=== PATIENT | female | born 1965 | race Caucasian/White ===

== ENCOUNTER 2024-04-21 09:16 | Inpatient (IN) | payer OTHER, MEDICARE, SELFPAY ==
[2024-04-21] VITALS (9 sets, daily range): BP systolic 129–198; BP diastolic 84–113; BMI 21.6; BMI 21.5
--- NOTE | 2024-04-21 04:56 | ED.GENMED ---
History of Present Illness
General
Chief Complaint: Abdominal Symptoms
Time Seen by Provider: 04/21/24 04:54
History of Present Illness
History of Present Illness:
HPI: The patient comes in because of abdominal pain and vomiting. states that he noted coffee-ground type emesis but patient did not think that she was vomiting blood. She came in by ambulance from home. She says this feels like the time
that she has had pancreatitis. She was admitted here with a questionable small bowel obstruction 8 months ago but does not feel that this is related to a bowel obstruction.
EXAM:
GENERAL: The patient appears very uncomfortable and is actively retching upon arrival
HEENT: Moist oral mucosa
CARDIOVASCULAR: No murmurs, tachycardic heart rate, regular rhythm, No chest wall tenderness
PULMONARY: Minimal respiratory distress, breath sounds are clear and equal
ABDOMEN: Soft with no peritoneal signs, moderate diffuse abdominal tenderness
NEUROLOGIC: Fair strength all extremities, no coordination deficits
PSYCHIATRIC: Appropriate mental status, normal insight and judgement
EXTREMITIES: Nontender, no edema, moves all extremities equally
SKIN: Appears somewhat pale
TIME OF INITIAL ENCOUNTER: 5 AM
NUMBER AND COMPLEXITY OF PROBLEMS ADDRESSED AT THE ENCOUNTER
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
� Acute Exacerbation and/or Progression of Chronic Illness: This is an acute problem but is had similar episode in the past
� Differential Diagnosis includes: Pancreatitis, bowel obstruction, viral syndrome, dehydration, NOLVIA
AMOUNT AND/OR COMPLEXITY OF DATA TO BE REVIEWED AND ANALYZED
� I performed an independent evaluation of and my interpretation is:
EKG: Sinus 121, nonspecific ST abnormality
CT: Personally viewed CT imaging, no evidence for bowel obstruction
X-rays:
Laboratory Studies: White count 14.6, hemoglobin 16.1
Other:
� Review of other/old records: Hemoglobin in September 2023 was 9.8. In September 2023 she came in with abdominal pain associated with nausea and vomiting concerning for pancreatitis and had coffee-ground emesis. She has a history
of a pancreatic transplant and renal transplant
� Clinical information was obtained by an independent historian: I spoke to EMS; I also spoke to the at bedside.
� Prescriptions/Medications Considered but not given:
� Further testing considered but not performed:
RISK OF COMPLICATIONS AND/OR MORBIDITY OR MORTALITY OF PATIENT MANAGEMENT
� Social determinants of health affecting care: Lives at home
� Discussion with other providers: Hospitalist for admission at 7 AM
� Escalation of care including admission/observation vs risk of discharge considered: Considered CT with oral contrast however the patient cannot currently tolerate anything orally. Will hold off on IV contrast for CAT scan as
well as she has a history of renal transplant. The patient was given IV fluids. Given the report of coffee-ground emesis, she was also given IV Protonix. Her white count is elevated at 14.6 but hemoglobin is normal. H
Past History
Past History
ED Past Medical History: GERD, HTN, Hypothyroidism and Other (UTI, CIDP)
ED Past Surgical History: Cholecystectomy, Gynecological (partial hysterectomy), Orthopedic (Right great toe amputation) and Other (L ankle reconstruction, Kidney and pancreas transplant, Fistula left arm)
Social History
Tobacco: Former smoker
Alcohol: None
Personal:
Living: with family
Phy Exam
Physical Exam
Physical Exam:
See HPI
Course
Orders/Labs/Results
Orders:
Orders
04/21/24 04:54
Pantoprazole [Protonix IV] 80 mg IV NOW STA
04/21/24 04:55
0.9% Sodium Chloride 500 ml [Nss] 500 ml IV BOLUS
Ondansetron Injectable [Zofran] 4 mg IV NOW STA
04/21/24 05:06
EKG [Electrocardiogram (*1)] Urgent
Reason for Study: Abdominal Pain
EKG- Treatment ONCE
HYDROmorphone [Dilaudid] 0.5 mg IV NOW STA
04/21/24 05:08
CT Abd/pel Without Iv Or Oral Urgent
Comment:
Reason For Exam: pain/vom; panc / renal tx; cannot milly po
STOOL [C difficile Antigen & Toxins] Urgent
DE Source: Feces/Stool
Specimen Description:
Date Specimen was Collected: 04/21/24
Time Specimen was Collected: 05:06
Stool Culture Urgent
DE Source: Feces/Stool
Specimen Description:
Date Specimen was Collected: 04/21/24
Time Specimen was Collected: 05:06
04/21/24 05:14
Type+Screen Urgent
Complete Blood Count/With Diff Urgent
Comprehensive Metabolic Panel Urgent
Lipase Urgent
04/21/24 05:15
COVID-19 Antigen Urgent
Source: Nasal Swab
04/21/24 05:22
Pantoprazole [Protonix IV] 40 mg .ROUTE .STK-MED ONE
Abnormal Lab Results
04/21/24
05:14
WBC 14.6 H 10^3/uL
(4.8-10.8)
Hgb 16.1 H g/dL
(12.0-16.0)
Hct 48.4 H %
(37.0-47.0)
Abs Immat Gran (auto) 0.1 H 10^3/uL
(0-0.05)
Absolute Neuts (auto) 12.4 H 10^3/uL
(1.4-6.5)
Absolute Lymphs (auto) 0.9 L 10^3/uL
(1.2-3.4)
Absolute Monos (auto) 1.1 H 10^3/uL
(0.1-0.6)
Neutrophils % 85.2 H %
(42.2-75.2)
Lymphocytes % 6.3 L %
(20.5-51.1)
Creatinine 1.2 H mg/dL
(0.6-1.0)
Glucose 165 H mg/dl
(70-99)
Calcium 10.4 H mg/dl
(8.4-10.2)
Total Bilirubin 1.5 H mg/dl
(0.2-1.3)
AST 137 H U/L
(14-36)
ALT 54 H U/L
(0-35)
Alkaline Phosphatase 148 H U/L
(38-126)
04/21/24 05:14
04/21/24 05:14
Vital Signs
Initial and Last Documented VS:
Initial Vital Signs
Pulse Ox
97
04/21/24 04:56
Last Documented Vital Signs
Temp Pulse Resp BP Pulse Ox
98.5 F 106 24 169/103 98
04/21/24 05:03 04/21/24 06:45 04/21/24 06:45 04/21/24 06:44 04/21/24 06:45
*Critical Care Note
Total Time (30-74mins, 75-104mins- exclusive of procedures): Not Applicable
ED Attending Note
-
Portions of this chart may have been created with voice recognition software.� Occasional wrong word or��sound alike� substitutions may have occurred due to the inherent limitations of voice recognition software.
Discharge Plan
Departure
Prescriptions:
No Action
prednisone 5 mg tablet
5 mg PO DAILY
diphenoxylate-atropine [Lomotil] 2.5-0.025 mg Tablet
1 tab PO QID PRN (Reason: diarrhea)
Patient Comments:
09/12/2023: last filled 07/10/22, 120 tabs [facility] days from [facility]
mycophenolate mofetil [CellCept] 500 mg tablet
500 mg PO Q12H
alprazolam 0.5 mg tablet
1 mg PO HS
Patient Comments:
09/12/2023: last filled 08/27/23, 60 tabs for 30 days from [id number]
levothyroxine 50 mcg tablet
50 mcg PO DAILY
pantoprazole 40 mg tablet,delayed release (DR/EC)
40 mg PO DAILY
hkfmmsahymqx-uowwlwch-xiinak Tablet
1 tab PO DAILY
biotin 1 mg Capsule
1 mg PO DAILY
tacrolimus 0.5 mg capsule
0.5 mg PO Q12H 30 Days Qty: 60 0RF
hydralazine 25 mg Tablet
25 mg PO TID Qty: 90 0RF
magnesium oxide 500 mg Tablet
500 mg PO BID Qty: 60 0RF
metoprolol succinate 25 mg Tablet Extended Release 24 Hr
25 mg PO BID 30 Days Qty: 60 0RF
oxycodone 5 mg Tablet
5 mg PO Q4HPRN PRN (Reason: mod pain) Qty: 20 0RF
Patient Comments:
09/12/2023: last filled 09/11/23, 20 tabs for 4 days
apixaban 5 mg tablet
See Rx Instructions .ROUTE .COMPLEX Qty: 75 0RF
Rx Instructions:
2 tablets twice a day for 7 days, then 1 tablet twice a day
ciprofloxacin HCl 500 mg Tablet
500 mg PO BID 7 Days Qty: 14 0RF
Referrals:
Maine Villa NP [Family Provider] -
Interventions
Interventions:
*Risk Screen - Suicide Last Done: 04/21/24 04:56
*General Assessment Last Done: 04/21/24 04:56
*Neglect/Abuse Screening Last Done: 04/21/24 04:56
*ED COVID-19 Vaccine History Last Done: 04/21/24 04:56
VL-Jdqipw-Ealovcwuqh Assessment Last Done: 04/21/24 06:32
Discharge Date and Time
Print Language: MALDIVIAN
[2024-04-21] MEDS: NSS 500 IV (05:19)
[2024-04-21] MEDS: PROTONIX IV 80 MG IV (05:19)
[2024-04-21] MEDS: DILAUDID 0.5 MG IV ×4 (05:20→20:11)
[2024-04-21] MEDS: ZOFRAN 4 MG IV ×3 (05:20→17:38)
[2024-04-21 05:35] LABS: % Basophils 0.3 % (0-2); % Eosinophils 0.3 % (0-6); % Immature Granulocytes 0.4 % (0-0.5); % Lymphocytes 6.3 % (20.5-51.1); % Monocytes 7.5 % (1.7-9.3); % Neutrophils 85.2 % (42.2-75.2); Absolute Eosinophils 0.1 10^3/uL (0-0.7); Absolute Immature Granulocytes 0.1 10^3/uL (0-0.05); Absolute Lymphocytes 0.9 10^3/uL (1.2-3.4); Absolute Monocytes 1.1 10^3/uL (0.1-0.6); Absolute Neutrophils 12.4 10^3/uL (1.4-6.5); Hematocrit 48.4 % (37.0-47.0); Hemoglobin 16.1 g/dL (12.0-16.0); Mean Corp Hgb Conc. 33.3 g/dL (33.0-37.0); Mean Corpuscular Hgb 29.9 pg (27.0-31.0); Mean Platelet Volume 10.4 fL (7.4-10.4); Nucleated Red Blood Cells % 0 %; Platelet Count 163 10^3/uL (130-400); Red Blood Cell Count 5.38 10^6/uL (4.20-5.40); Red Cell Dist. Width 13.4 % (11.5-14.5); White Blood Cell Count 14.6 10^3/uL (4.8-10.8)
[2024-04-21 05:48] LABS: COVID-19 Antigen Negative (Negative)
[2024-04-21 05:58] LABS: ALT (SGPT) 54 U/L (0-35); AST (SGOT) 137 U/L (14-36); Albumin 4.9 g/dl (3.5-5.0); Alkaline Phosphatase 148 U/L (38-126); Blood Urea Nitrogen 16 mg/dl (7-17); Calcium 10.4 mg/dl (8.4-10.2); Carbon Dioxide 25 mmol/L (22-30); Chloride 105 mmol/L (98-107); Estimated Creatinine Clearance 39 ml/min; Glucose 165 mg/dl (70-99); Lipase 51 U/L (23-300); Potassium 3.5 mmol/L (3.5-5.1); Sodium 142 mmol/L (135-145); Total Bilirubin 1.5 mg/dl (0.2-1.3); eGFR 51.82
--- NOTE | 2024-04-21 09:03 | HPS.HSE ---
Family Physician
-
Family Physician: Maine Villa
Chief Complaint
-
abdomen pain
History of Present Illness
58-year-old female past medical history of renal and pancreatic transplant who is presenting from home with abdominal pain nausea and vomiting. History obtained from patient's spouse at bedside. Patient had 1 can of alcoholic drink on Saturday.
Overnight patient developed severe abdominal pain associate with nausea and vomiting. Spouse state of coffee-ground emesis. Of note patient also with CIDP and smokes medical marijuana. Also intermittently takes edibles of marijuana for severe
pain. Patient does not follow-up with any pancreatic specialist. Follows up with assisted living director in [place] for her immunosuppressive medications. Patient with multiple hospitalizations with similar symptomatology. No melanotic stools. States of
headache. No chest pain or shortness of breath. Significant abdominal pain leading to come to the ER.
Medical History
Past Medical History
Past Medical History: Reports Other (chronic inflammatory demyelinating polyneuropathy, GERD, diabetes, history of pancreatitis, diabetic nephropathy, pancreatic/renal transplant 20 years ago, cholecystitis with cholecystectomy, history of ERCP,)
Past Surgical History: Reports Other
Additional Past Surgical History:
Renal and pancreatic transplant
Cholecystectomy
Social History
Tobacco: Vaping (Marijuana)
Alcohol: None
Drug: Marijuana (Vaping and edibles)
Personal:
Living: With Family
Family History
Family History: Not pertinent
Allergies / Home Medications
Allergies reflects when Allergies were last updated in [facility].
Home Medications with original date entered in [facility]
Allergy/Medication List:
Allergies
Allergy/AdvReac Type Severity Reaction Status Date / Time
promethazine [From Phenergan] Allergy Intermediate Itching Verified 04/21/24 04:56
promethazine HCl Allergy Unknown Unknown Verified 04/21/24 04:56
[From Phenergan]
adhesive Allergy Rash Verified 04/21/24 04:56
Cephalosporins Allergy DIARRHEA Verified 04/21/24 04:56
Home Medications
alprazolam 0.5 mg tablet 1 mg PO HS Mental Health/Anxiety 09/03/23
biotin 1 mg capsule 1 mg PO DAILY Supplement 09/03/23
diphenoxylate-atropine 2.5 mg-0.025 mg tablet (Lomotil) 1 tab PO QIDPRN PRN diarrhea 09/03/23
levothyroxine 50 mcg tablet 50 mcg PO DAILY Thyroid 09/03/23
mycophenolate mofetil 500 mg tablet (CellCept) 500 mg PO Q12 Transplant 09/03/23
pantoprazole 40 mg tablet,delayed release 40 mg PO DAILY Gastrointestinal Issue 09/03/23
prednisone 5 mg tablet 5 mg PO DAILY Anti-Inflammatory 09/03/23
Medical Marijuana 2 puff inhalation DAILYPRN PRN mild pain 04/21/24
cholecalciferol (vitamin D3) 125 mcg (5,000 unit) tablet (Vitamin D3) 125 mcg PO DAILY Supplement 04/21/24
gabapentin 600 mg tablet 600 mg PO TID Pain 04/21/24
ondansetron 4 mg disintegrating tablet 4 mg PO Q6HPRN PRN nausea 04/21/24
tacrolimus 0.5 mg capsule, immediate-release 0.5 mg PO Q12 Transplant 04/21/24
therapeutic multivitamin 1 tab PO DAILY Supplement 04/21/24
tizanidine 4 mg tablet 4 mg PO TIDPRN PRN spasms 04/21/24
Review of Systems
-
History Source: Patient and Family
A 12 point ROS was completed and negative except as noted: Yes
Physical Exam
Vital Signs
Vital Signs
Temp Pulse Resp BP Pulse Ox
98.5 F 101 21 129/90 97
04/21/24 05:03 04/21/24 08:00 04/21/24 08:00 04/21/24 08:00 04/21/24 07:45
Physical Exam
General: Well Developed, Well Nourished and No Apparent Distress
HEENT: NormoCephalic, Moist mucous membranes and Atraumatic
Respiratory: Clear
Cardiac: S1/S2 and Regular Rhythm; No Murmur or Rub
GI: Soft, Non Distended, Normal Bowel Sounds and Tender; No Organomegaly
Rectal: Deferred by Provider
Musculoskeletal: No Clubbing, No Cyanosis and No Edema
Skin: No Rash
Neuro: Awake and Nonfocal/grossly intact
Psych: Calm
Laboratory Results
-
04/21/24 05:14
04/21/24 05:14
Laboratory Results
Total Bilirubin 1.5 mg/dl (0.2-1.3) H 04/21/24 05:14
AST 137 U/L (14-36) H 04/21/24 05:14
ALT 54 U/L (0-35) H 04/21/24 05:14
Alkaline Phosphatase 148 U/L (38-126) H 04/21/24 05:14
Lipase 51 U/L (23-300) 04/21/24 05:14
Impression/Plan
-
#Abdominal pain likely secondary to pancreatitis in the setting of mild alcohol usage with history of pancreatic transplant vs. duodenitis
#History of pancreatitis in the past
#Nausea and vomiting secondary to above
#Leukocytosis likely reactive
Mild hypercalcemia likely secondary dehydration
N.p.o.
Aggressive IV fluid resuscitation LR 250 cc and then subsequently decrease 150 cc/h
Pain control
Antinausea meds
PPI
GI evaluation
#Mild acute duodenitis
#Pneumobilia-defer to GI.
N.p.o.
PPI
GI on following
#Transaminitis likely secondary to pancreatitis/medications versus dehydration
Trend CMP for now
#Primary hypertension
Not on any meds. Monitor for now
#Renal transplant
#Elevated Cr likely 2/2 dehydration
Continue prednisone, Prograf and mycophenolate
IVF. Trend Cr.
Hypothyroidism
Cont synthroid
Anxiety/depression
Continue with Xanax
History of chronic inflammatory demyelinating polyneuropathy
Continue with Tizanidine
History of type 2 diabetes
History of cholecystitis status postcholecystectomy
History of partial hysterectomy
Marijuana user-smokes/vapes daily and takes edible once a while
Hx of RUE DVT -off Eliquis
DVT ppx-lovenox
DNR/DNI confirmed with spouse per pt.
I spent a total of 79 minutes with the patient or on the floor. More than 50% of this time involved counseling and coordination of care.
[2024-04-21] MEDS: LR 1000 IV ×3 (09:08→15:59)
--- NOTE | 2024-04-21 10:03 | CON.GI ---
Addendum entered and electronically signed by Ledy Myles MD 04/21/24 13:22:
I saw and examined the patient.
The DATABASE DBA's note was reviewed and I agree with the note.
Comment: This is a 58-year-old female with multiple medical problems as listed below including pancreatic and renal transplant 20 years ago, status post cholecystectomy and prior history of recurrent pancreatitis and was admitted in 2022 with
symptoms of pancreatitis which resolved with bowel rest and IV hydration now presents with recurrent epigastric abdominal pain with nausea vomiting and coffee-ground emesis. CT on admission suggests possible duodenitis or duodenal ulcer but also
noted new pneumobilia likely from prior ERCP, also on CT quechan pancreas is atrophic. Right lower quadrant transplant pancreas appears unchanged and also has abnormal LFTs with leukocytosis her lipase is normal. No recent change in transplant
medication she is on tacrolimus, CellCept and prednisone.
Assessment and plan epigastric abdominal pain with nausea vomiting and small amount of coffee-ground emesis, hemoglobin remained stable at 16.1 but she is hemoconcentrated continue IV fluids, n.p.o. and Protonix twice daily. Doubt that this is
recurrent pancreatitis of transplanted pancreas in RLQ and symptoms may be related to possible viral enteritis or duodenitis or peptic ulcer disease. If symptoms do not improve will schedule her for an endoscopy. If symptoms do not improve will
also get an MRI abdomen. I also encouraged patient to follow-up at a tertiary biliary/pancreatic center her transplant medications are being managed by her transplant certified real estate appraiser at [facility] and she sees Dr. Leslie who also I told them to
follow-up with after discharge from the hospital. They do not want to go back to pancreatic center at [place] or [place].
Original Note:
Consultation
-
Date/Time Consultation Requested: 04/21/24 0900
Date/Time Consultation Performed: 04/21/24 1000
Requesting Provider: Rober Palmer MD
Performing Provider: CUONG Alejandre, Ledy Myles MD
Reason for Consultation: pancreatitis, Coffee ground emesis
Medical History
Chief Complaint / HPI
Chief Complaint: Abdominal pain
History of Present Illness:
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
ago at [facility], prior barron for cholecystitis , history of ERCP with admission in 2022 with pancreatitis with noted RLQ stranding and vomiting with concern for graft pancreatitis. She improved with slow progression of diet and IVF. She now returns
today with recurrent abdominal pain with vomiting and coffee ground emesis. On admission cT completed with limitation without contrast new pneumobilia not seen on prior imaging. Also noted non specific edema upper abdomen in periduodenal regions
with acute duodenitis vs underlying ulcer. Labs notable for WBC 14,600, hbg 16, bili 1.5, AST 137, alt 54, alk phos 148 and lipase of 51. Pt is on chronic tacrolimus, mycophenolate. Her last endoscopy and colonoscopy were performed within
the past 1 to 2 years at [facility].
In reviewing with patient she has transplant year ago at [facility] but not back in years. Her immunosuppression is followed by renal at [facility]. she now reports this her 4th episode in 2 years of concern for recurrent pancreatitis. She complaints
of right sided 10/10 pain along with coffee ground emesis. Symptoms started yesterday without improvement prompting ER evaluation. She has chronic GERD on PPI but denies dysphagia, diarrhea, constipation or rectal bleeding.
Past Medical History
Past Medical History: GERD, IDDM and Other (chronic inflammatory demyelinating polyneuropathy, pancreatitis 08/2023, DVT, diabetic neuropathy, cholecystitis, COVID (15 days ago), complicated UTI, ETOH pancreatitis in past)
Past Surgical History: Cholecystectomy and Other (pancreatic/renal transplant (20 yrs ago), ERCP)
Social History
Tobacco: Former Smoker
Alcohol: Other (rare occasion, former ETOH )
Drug: Marijuana (medical marijuana card)
Personal:
Living: With Family
Employment: Retired
Family History
Family History: Other (No fam hx of GI malignancy or IBD)
Allergies / Home Medications
Allergy/AdvReac Type Severity Reaction Status Date / Time
promethazine [From Phenergan] Allergy Intermediate Itching Verified 04/21/24 04:56
promethazine HCl Allergy Unknown Unknown Verified 04/21/24 04:56
[From Phenergan]
adhesive Allergy Rash Verified 04/21/24 04:56
Cephalosporins Allergy DIARRHEA Verified 04/21/24 04:56
�Medication �Instructions �Recorded
alprazolam 0.5 mg tablet 1 mg PO HS Mental Health/Anxiety 09/03/23
biotin 1 mg capsule 1 mg PO DAILY Supplement 09/03/23
diphenoxylate-atropine 2.5 1 tab PO QIDPRN PRN diarrhea 09/03/23
mg-0.025 mg tablet (Lomotil)
levothyroxine 50 mcg tablet 50 mcg PO DAILY Thyroid 09/03/23
mycophenolate mofetil 500 mg 500 mg PO Q12H Transplant 09/03/23
tablet (CellCept)
pantoprazole 40 mg tablet,delayed 40 mg PO DAILY Gastrointestinal 09/03/23
release Issue
prednisone 5 mg tablet 5 mg PO DAILY Anti-Inflammatory 09/03/23
tacrolimus 0.5 mg capsule, 0.5 mg PO Q12H 30 days #60 caps 09/11/23
immediate-release
Medical Marijuana 2 puff inhalation DAILYPRN PRN 04/21/24
mild pains
cholecalciferol (vitamin D3) 125 125 mcg PO DAILY 04/21/24
mcg (5,000 unit) tablet (Vitamin
D3)
gabapentin 600 mg tablet 600 mg PO TID 04/21/24
ondansetron 4 mg disintegrating 4 mg PO Q6HPRN PRN nausea 04/21/24
tablet
therapeutic multivitamin 1 tab PO DAILY 04/21/24
tizanidine 4 mg tablet 4 mg PO TIDPRN PRN spasms 04/21/24
Review of Systems
-
History Source: Patient
Constitutional: Reports No Symptoms
EENT: Reports No Symptoms
Respiratory: Reports No Symptoms
Abdomen/GI: Reports Abdominal Pain, Nausea and Vomiting (coffee ground emesis )
: Reports Other (hx UTI's)
Musculoskeletal: Reports No Symptoms
Skin: Reports No Symptoms
Neurological: Reports Weakness
Endocrine: Reports No Symptoms
Hematologic/Lymphatic: Reports No Symptoms
Vital Signs
Temp Pulse Resp BP Pulse Ox
98.5 F 100 11 184/94 99
04/21/24 05:03 04/21/24 09:45 04/21/24 09:45 04/21/24 09:09 04/21/24 09:45
Physical Exam
Exam
General: Well Developed, Well Nourished and Other (distress with pain and vomiting )
HEENT: Normocephalic and Anicteric
Respiratory: Clear
Cardiac: Other (tachy )
GI: Soft and Tender (worse right sided )
Musculoskeletal: No Clubbing and No Cyanosis
Skin: Warm and Dry
Neuro: Awake, Alert and AO x 3
Psych: Calm
Results
WBC 14.6 10^3/uL (4.8-10.8) H 04/21/24 05:14
Hgb 16.1 g/dL (12.0-16.0) H 04/21/24 05:14
Hct 48.4 % (37.0-47.0) H 04/21/24 05:14
MCV 90.0 fL (81.0-99.0) 04/21/24 05:14
Plt Count 163 10^3/uL (130-400) 04/21/24 05:14
Absolute Neuts (auto) 12.4 10^3/uL (1.4-6.5) H 04/21/24 05:14
Sodium 142 mmol/L (135-145) 04/21/24 05:14
Potassium 3.5 mmol/L (3.5-5.1) 04/21/24 05:14
Chloride 105 mmol/L (98-107) 04/21/24 05:14
Carbon Dioxide 25 mmol/L (22-30) 04/21/24 05:14
BUN 16 mg/dl (7-17) 04/21/24 05:14
Creatinine 1.2 mg/dL (0.6-1.0) H 04/21/24 05:14
Calcium 10.4 mg/dl (8.4-10.2) H 04/21/24 05:14
Total Bilirubin 1.5 mg/dl (0.2-1.3) H 04/21/24 05:14
AST 137 U/L (14-36) H 04/21/24 05:14
ALT 54 U/L (0-35) H 04/21/24 05:14
Alkaline Phosphatase 148 U/L (38-126) H 04/21/24 05:14
Lipase 51 U/L (23-300) 04/21/24 05:14
Diagnostic Image Results:
CT Abd/pel Without Iv Or Oral
Limited examination without intravenous and oral contrast. There is new pneumobilia which may represent sphincter malfunction or be secondary to previous sphincterotomy, although the latter is not favored as no previous CT demonstrated pneumobilia.
Nonspecific edema in the upper abdomen which appears to be centered in the periduodenal region and favored to represent acute duodenitis. Underlying duodenal ulcer cannot be excluded.
Chronic/incidental findings as detailed in the body of the report.
Prior GI Procedures:
EGD: 1-2 years ago Saida lopez
Colonoscopy: 1-2 years ago Tyleratoreli abijames
Assessment / Plan
-
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
ago at [facility], prior barron for cholecystitis , history of ERCP with admission in 2023 with pancreatitis with noted RLQ stranding and vomiting with concern for graft pancreatitis. She improved with slow progression of diet and IVF. She now returns
today with recurrent abdominal pain with vomiting and coffee ground emesis. On admission cT completed with limitation without contrast new pneumobilia not seen on prior imaging. Also noted non specific edema upper abdomen in periduodenal regions
with acute duodenitis vs underlying ulcer. Labs notable for WBC 14,600, hbg 16, bili 1.5, AST 137, alt 54, alk phos 148 and lipase of 51. Pt is on chronic tacrolimus, mycophenolate. Her last endoscopy and colonoscopy were performed within
the past 1 to 2 years at [facility].
04/21/24
Limited examination without intravenous and oral contrast. There is new pneumobilia which may represent sphincter malfunction or be secondary to previous sphincterotomy, although the latter is not favored as no previous CT demonstrated pneumobilia.
Nonspecific edema in the upper abdomen which appears to be centered in the periduodenal region and favored to represent acute duodenitis. Underlying duodenal ulcer cannot be excluded.
Chronic/incidental findings as detailed in the body of the report.
Impression:
- Abdominal pain with concern for underlying pancreatitis in setting of transplanted pancreas with recurrent episode 4th episode in 2 years
- N/V- with Coffee ground emesis
-CT with pneumobilia
-CT with acute duodenitis
- pancreatic/renal transplant 20 years ago
other med problems:
- hx covid
-CIPD
-GERD
-DM
- barron
-neuropathy
-hx DVT
Recommendations
Pt with likely recurrent pancreatitis 4th episode in 2 years with hx panc/renal transplant 20+ years ago
agree with aggressive IVF s/p bolus in Er and now LR at 250ml/hr
trend labs
NPO
pain control
antiemetic as needed
Protonix IV BID
will review imaging with Dr. Myles
Continue tacrolimus and cellcept as per medical team
will need follow up after discharge-- pt follows with Dr. Cintron at [facility] consider pancreatic specialist -- Dr. Darling or tertiary center to review with recurrent bouts of pancreatitis --
Total Time Spent with Patient (in minutes): 40
-
-
Thank you for consultation and allowing me to participate in the patient's care. Please call the [facility] integration developer GI physician during the after hours with any questions or concerns.
--- NOTE | 2024-04-21 10:22 | EDRN ---
Patient taken to [id number] on stretcher with LR infusing.
[2024-04-21] MEDS: NSS (PRESERVATIVE FREE) 10 ML IV ×2 (11:50→20:01)
[2024-04-21] MEDS: CELLCEPT 500 MG PO ×2 (11:51→21:36)
[2024-04-21] MEDS: PROTONIX IV 40 MG IV ×2 (11:51→20:01)
[2024-04-21] MEDS: PROGRAF 0.5 MG PO ×2 (11:51→21:35)
[2024-04-21 15:54] LABS: Urine Albumin 3+ (Neg - Trace); Urine Bilirubin Negative (Negative); Urine Character Clear (Clear); Urine Color Yellow; Urine Glucose Trace (Negative); Urine Ketone Negative (Negative); Urine Leukocyte 1+ (Negative); Urine Nitrite Negative (Negative); Urine Occult Blood Negative (Negative); Urine Urobilinogen Negative (Neg - 1+)
--- NOTE | 2024-04-21 16:28 | PTCARENOTE ---
patient bp with automatic bp machine 180/94..denies chest pain. Manual bp 164/[address] made aware. no new orders at this time.plan of care ongoing.
[2024-04-21 16:33] LABS: Urine Squamous Cell >30 /LPF (Few)
[2024-04-21 16:34] LABS: Urine Bacteria Many (Negative); Urine Red Blood Cell 0-2 /HPF (0-2)
[2024-04-21] MEDS: NEURONTIN PO (16:51)
[2024-04-21] MEDS: LOVENOX 40 MG SC (17:38)
[2024-04-21] MEDS: BENADRYL 6.25 MG IV (19:58)
[2024-04-21] MEDS: NEURONTIN 600 MG PO (21:38)
[2024-04-21] MEDS: XANAX 1 MG PO (21:40)
[2024-04-21] MEDS: APRESOLINE 5 MG IV (23:02)
[2024-04-22] VITALS (8 sets, daily range): BP systolic 142–182; BP diastolic 82–100
[2024-04-22] MEDS: DILAUDID 0.5 MG IV ×3 (01:01→12:26)
--- NOTE | 2024-04-22 05:03 | PTCARENOTE ---
1930 - Pt dry heaving and c/o nausea. At 1738 Zofran administered. Notified MISSILE INSPECTOR PREFLIGHT. One time dose of IV Benadryl 6.25mg ordered and administered. Pt reported feeling better after dose, but continued to dry heave.
At 2010, Pt received IV Dilaudid for pain; at 2148 Xanax administered for anxiety.
2300 Vitals, PCT informed this RN of automatic BP of 230/130. Manual BP 198/96, confirmed by 2 RNs. Notified MISSILE INSPECTOR PREFLIGHT- order entered for PRN IV Hydralazine 5mg Q6H for systolic >180. PRN dose administered. Attempt to recheck BP around 0045. Patient c/o
pain and elevated BP. IV Dilaudid administered. 0230 BP rechecked 156/84 manual.
[2024-04-22] MEDS: SYNTHROID 50 MCG PO (05:34)
[2024-04-22 07:36] LABS: % Basophils 0.2 % (0-2); % Eosinophils 0.2 % (0-6); % Immature Granulocytes 0.3 % (0-0.5); % Lymphocytes 18.8 % (20.5-51.1); % Monocytes 7.4 % (1.7-9.3); % Neutrophils 73.1 % (42.2-75.2); Absolute Lymphocytes 1.1 10^3/uL (1.2-3.4); Absolute Monocytes 0.4 10^3/uL (0.1-0.6); Absolute Neutrophils 4.3 10^3/uL (1.4-6.5); Hematocrit 39.9 % (37.0-47.0); Hemoglobin 12.9 g/dL (12.0-16.0); Mean Corp Hgb Conc. 32.3 g/dL (33.0-37.0); Mean Corpuscular Hgb 29.6 pg (27.0-31.0); Mean Corpuscular Volume 91.5 fL (81.0-99.0); Mean Platelet Volume 10.7 fL (7.4-10.4); Nucleated Red Blood Cells % 0 %; Platelet Count 97 10^3/uL (130-400); Red Blood Cell Count 4.36 10^6/uL (4.20-5.40); Red Cell Dist. Width 13.5 % (11.5-14.5); White Blood Cell Count 5.9 10^3/uL (4.8-10.8)
[2024-04-22 07:42] LABS: ALT (SGPT) 35 U/L (0-35); AST (SGOT) 55 U/L (14-36); Albumin 3.4 g/dl (3.5-5.0); Alkaline Phosphatase 113 U/L (38-126); Blood Urea Nitrogen 15 mg/dl (7-17); Calcium 9.3 mg/dl (8.4-10.2); Carbon Dioxide 25 mmol/L (22-30); Chloride 107 mmol/L (98-107); Estimated Creatinine Clearance 47 ml/min; Glucose 82 mg/dl (70-99); Sodium 139 mmol/L (135-145); Total Bilirubin 0.9 mg/dl (0.2-1.3); Total Protein 5.8 g/dl (6.3-8.2); eGFR > 60.00
[2024-04-22] MEDS: APRESOLINE 5 MG IV (07:44)
[2024-04-22] MEDS: PROTONIX IV 40 MG IV ×2 (07:48→20:29)
[2024-04-22] MEDS: NSS (PRESERVATIVE FREE) 10 ML IV ×2 (07:48→20:29)
[2024-04-22] MEDS: LR 1000 IV (08:42)
--- NOTE | 2024-04-22 09:05 | W.PN.GI.CBS2 ---
Addendum entered and electronically signed by Ledy Myles MD 04/22/24 10:14:
platelet dropped today- follow closely may need Hematology consult if persists/worsens
Addendum entered and electronically signed by Ledy Myles MD 04/22/24 09:26:
I saw and examined the patient.
The CONGRESSIONAL DISTRICT AIDE's note was reviewed and I agree with the note.
Comment: Epigastric abdominal pain with nausea vomiting and small amount of coffee-ground emesis, hb stable no more CG emesis. continue IV fluids was hemoconcentrated/dehydrated at admission,Cr stable, n.p.o. and Protonix twice daily. Doubt that
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 If symptoms do not improve will schedule her for an endoscopy. will also get an MRI
abdomen. I also encouraged patient to follow-up at a tertiary biliary/pancreatic center her transplant medications are being managed by her transplant monument stonecutter at [facility] and she sees Dr. Anuj BUCKNER at [facility] also to follow-up with after
discharge from the hospital. They do not want to go to pancreatic center at [place] or [place].
Original Note:
Today's Communication / Plan
-
Pt with duodenitis vs enteritis vs less likely recurrent pancreatitis as pain higher than noted with prior episodes pancreatitis with hx panc/renal transplant 20+ years ago
pt responded well to IVF with improved hbg and WBC
still with severe pain
will add MRI for further evaluation some limitation of CT without contrast
cont LR at 70ml/hr
trend labs including platelets with some drop
cont NPO with severe pain
pain control
antiemetic as needed
cont Protonix IV BID
NSAID avoidance -- pt denies use
Continue tacrolimus and CellCept as per medical team
will need follow up after discharge-- pt follows with Dr. Cintron at [facility] vs consider pancreatic specialist -- Dr. Darling or tertiary center with hx panc transplant and recurrent pain
Assessment / Plan
-
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 She improved with slow progression of diet and IVF. She now returns
today with recurrent abdominal pain with vomiting and coffee ground emesis. On admission cT completed with limitation without contrast new pneumobilia not seen on prior imaging. Also noted non specific edema upper abdomen in periduodenal regions
with acute duodenitis vs underlying ulcer. Labs notable for WBC 14,600- improved after discharge hbg 16, bili 1.5, AST 137, alt 54, alk phos 148 and lipase of 51. Pt is on chronic tacrolimus, mycophenolate. Her last endoscopy and
colonoscopy were performed within the past 1 to 2 years at [facility].
04/21/24CT Abd/pel Without Iv Or Oral
Limited examination without intravenous and oral contrast. There is new pneumobilia which may represent sphincter malfunction or be secondary to previous sphincterotomy, although the latter is not favored as no previous CT demonstrated pneumobilia.
Nonspecific edema in the upper abdomen which appears to be centered in the periduodenal region and favored to represent acute duodenitis. Underlying duodenal ulcer cannot be excluded.
Chronic/incidental findings as detailed in the body of the report.
Impression:
- Abdominal pain with concern for underlying pancreatitis in setting of transplanted pancreas with recurrent episode 4th episode in 2 years
- N/V- with Coffee ground emesis
-CT with pneumobilia
-CT with acute duodenitis
- pancreatic/renal transplant 20 years ago
-leukocytosis - improved
-thrombocytopenia
other med problems:
- hx covid
-CIPD
-GERD
-DM
- barron
-neuropathy
-hx DVT
Recommendations
Pt with duodenitis vs enteritis vs less likely recurrent pancreatitis as pain higher than noted with prior episodes pancreatitis with hx panc/renal transplant 20+ years ago
pt responded well to IVF with improved hbg and WBC
still with severe pain
will add MRI for further evaluation some limitation of CT without contrast
cont LR at 70ml/hr
trend labs including platelets with some drop
cont NPO with severe pain
pain control
antiemetic as needed
cont Protonix IV BID
NSAID avoidance -- pt denies use
Continue tacrolimus and CellCept as per medical team
will need follow up after discharge-- pt follows with Dr. Cintron at [facility] vs consider pancreatic specialist -- Dr. Darling or tertiary center with hx panc transplant and recurrent pain
Subjective
Subjective
Date of Service: April 22, 2024
still with increased RUQ 10/10 abdominal pain, NPO
Objective
Data Reviewed
Laboratory Data:
Laboratory Results
04/22/24 05:32
04/22/24 05:32
Laboratory Results
Total Bilirubin 0.9 mg/dl (0.2-1.3) 04/22/24 05:32
AST 55 U/L (14-36) H 04/22/24 05:32
ALT 35 U/L (0-35) 04/22/24 05:32
Alkaline Phosphatase 113 U/L (38-126) 04/22/24 05:32
Lipase 51 U/L (23-300) 04/21/24 05:14
Vital Signs and I&O:
Vital Signs
Temp Pulse Resp BP Pulse Ox
98.1 F 90 17 184/94 98
04/22/24 03:08 04/22/24 07:44 04/22/24 03:08 04/22/24 07:44 04/22/24 03:13
I&O
04/21/24 04/22/24 04/23/24
06:59 06:59 06:59
Intake Total 0 / 0
Balance 0 / 0
Physical Exam
Physical Exam
HEENT: Anicteric and Moist mucous membranes
Cardiology: Normal Sinus Rhythm
Pulmonary: Clear
GI: Soft, Non Distended and Tender (RUQ with some guarding )
[2024-04-22] MEDS: VITAMIN D3 (cholecalciferol) 125 MCG PO (09:32)
[2024-04-22] MEDS: THERAGRAN 1 TABLET PO (09:32)
[2024-04-22] MEDS: NEURONTIN 600 MG PO (09:32)
[2024-04-22] MEDS: DELTASONE 5 MG PO (09:32)
--- NOTE | 2024-04-22 10:03 | CM ---
Patient seen bedside, initial assessment completed. Patient resides with her in a first floor apartment, no steps. Patient has a walker and shower chair at home. Patient reports VN history through [facility], [facility].
Patient PCP [facility], [facility] in [place]. Patient confirms prescription coverage, denies food, housing/utility, transportation insecurities at home. CM will continue to follow for all discharge planning needs.
Plan; home no needs likely.
--- NOTE | 2024-04-22 10:26 | W.PN.HOSP.TC ---
Today's Communication/Plan
-
IVF
Monitor BP
Diet per GI
MRI abdomen
Assessment / Plan
Assessment / Plan
#Abdominal pain likely secondary to duodenitis vs. enteritis vs. low likelihood of pancreatitis in the setting of mild alcohol usage with history of pancreatic transplant
#History of pancreatitis in the past
#Nausea and vomiting secondary to above
#Leukocytosis likely reactive Resolved
#Mild hypercalcemia likely secondary dehydration-improved
N.p.o.
Cont with IVF
Pain control
MRI abdomen pending
may require EGD
Antinausea meds
PPI
GI evaluation
#Mild acute duodenitis
#Pneumobilia-defer to GI.
N.p.o.
PPI
GI on following
#Transaminitis likely secondary to pancreatitis/medications versus dehydration
Trend CMP for now
significant improvement
#Primary hypertension likely elevated due to pain
Not on any meds. Monitor for now
PRN IV meds.
If persistent elevation may need to start po meds.
#Renal transplant
#Elevated Cr likely 2/2 dehydration
Continue prednisone, Prograf and mycophenolate
IVF. Trend Cr. Cr improving
#Chronic thrombocytopenia
Trend CBC for now
Hypothyroidism
Cont synthroid
Anxiety/depression
Continue with Xanax
History of chronic inflammatory demyelinating polyneuropathy
Continue with Tizanidine
History of type 2 diabetes
History of cholecystitis status postcholecystectomy
History of partial hysterectomy
Marijuana user-smokes/vapes daily and takes edible once a while
Hx of RUE DVT -off Eliquis
DVT ppx-lovenox
DNR/DNI confirmed with spouse per pt.
Anticipated Discharge: > 48 hours
Subjective/Interval History
-
Date of Service: April 22, 2024
states of headache and nausea
states of epigastric abd pain
Objective Data
-
Labs:
Laboratory Results
04/22/24
05:32
WBC 5.9
Hgb 12.9
Hct 39.9
Plt Count 97 L D
Sodium 139
Potassium 4.0
Chloride 107
Carbon Dioxide 25
BUN 15
Creatinine 1.0
Glucose 82
Calcium 9.3
Total Bilirubin 0.9
AST 55 H
ALT 35
Alkaline Phosphatase 113
Vital Signs:
Vital Signs
Temp Pulse Resp BP Pulse Ox
98.1 F 90 17 184/94 98
04/22/24 03:08 04/22/24 07:44 04/22/24 03:08 04/22/24 07:44 04/22/24 03:13
I&O
04/21/24 04/22/24 04/23/24
06:59 06:59 06:59
Intake Total 0 / 0
Balance 0 / 0
Data Reviewed
-
Total Time Spent with Patient (in minutes): 56
[2024-04-22] MEDS: CELLCEPT 500 MG PO (11:59)
[2024-04-22] MEDS: PROGRAF 0.5 MG PO (11:59)
[2024-04-22] MEDS: TRANDATE 10 MG IV (12:29)
[2024-04-22] MEDS: APRESOLINE 10 MG IV (15:24)
[2024-04-22] MEDS: DILAUDID 1 MG IV ×2 (15:54→20:39)
--- NOTE | 2024-04-22 17:09 | PTCARENOTE ---
patient last bm per patient was 04/21/24.
[2024-04-22] MEDS: NEURONTIN PO ×2 (17:15→23:15)
[2024-04-22] MEDS: ZOFRAN 4 MG IV (17:42)
[2024-04-22] MEDS: LOVENOX 40 MG SC (17:43)
[2024-04-22] MEDS: APRESOLINE 25 MG PO (20:28)
[2024-04-22] MEDS: CELLCEPT PO (23:15)
[2024-04-22] MEDS: XANAX PO (23:15)
[2024-04-22] MEDS: PROGRAF PO (23:15)
[2024-04-23] MEDS: LR 1000 IV ×3 (01:55→23:13)
[2024-04-23] MEDS: DILAUDID 1 MG IV ×3 (02:22→20:40)
--- NOTE | 2024-04-23 02:44 | SUR.OPER ---
Pt encouraged to void since has not voided so far this shift. Pt states she is too weak to get OOB. Bladder scanned for 443 mL, encouraged to try w/assist, pt refuses. Straight cathed via sterile technique for 500 mL cloudy lamar urine.
Pt wretching/dry heaving, offered zofran - refused. Medicated w/IV dilaudid per order (refer to MAR). Plan of care ongoing.
[2024-04-23 03:30] VITALS: BP 196/109
[2024-04-23] MEDS: APRESOLINE 10 MG IV ×3 (03:49→21:53)
[2024-04-23] MEDS: SYNTHROID PO (06:08)
[2024-04-23 07:10] VITALS: BP 174/107
[2024-04-23 07:28] LABS: ALT (SGPT) 28 U/L (0-35); AST (SGOT) 41 U/L (14-36); Albumin 3.6 g/dl (3.5-5.0); Alkaline Phosphatase 109 U/L (38-126); Blood Urea Nitrogen 18 mg/dl (7-17); Calcium 9.6 mg/dl (8.4-10.2); Carbon Dioxide 22 mmol/L (22-30); Chloride 106 mmol/L (98-107); Estimated Creatinine Clearance 43 ml/min; Glucose 102 mg/dl (70-99); Sodium 139 mmol/L (135-145); Total Bilirubin 0.7 mg/dl (0.2-1.3); Total Protein 6.1 g/dl (6.3-8.2); eGFR 57.52
[2024-04-23 07:30] LABS: % Basophils 0.4 % (0-2); % Eosinophils 0.1 % (0-6); % Immature Granulocytes 0.2 % (0-0.5); % Lymphocytes 10.1 % (20.5-51.1); % Monocytes 5.1 % (1.7-9.3); % Neutrophils 84.1 % (42.2-75.2); Absolute Lymphocytes 0.9 10^3/uL (1.2-3.4); Absolute Monocytes 0.4 10^3/uL (0.1-0.6); Absolute Neutrophils 7.1 10^3/uL (1.4-6.5); Hematocrit 40.9 % (37.0-47.0); Hemoglobin 13.1 g/dL (12.0-16.0); Mean Corpuscular Hgb 29.5 pg (27.0-31.0); Mean Corpuscular Volume 92.1 fL (81.0-99.0); Mean Platelet Volume 10.4 fL (7.4-10.4); Nucleated Red Blood Cells % 0 %; Platelet Count 134 10^3/uL (130-400); Red Blood Cell Count 4.44 10^6/uL (4.20-5.40); Red Cell Dist. Width 13.8 % (11.5-14.5); White Blood Cell Count 8.5 10^3/uL (4.8-10.8)
[2024-04-23] MEDS: NEURONTIN PO (08:35)
[2024-04-23] MEDS: DELTASONE PO (08:36)
[2024-04-23] MEDS: APRESOLINE PO (08:37)
[2024-04-23] MEDS: VITAMIN D3 (cholecalciferol) PO (08:38)
[2024-04-23] MEDS: THERAGRAN PO (08:38)
[2024-04-23] MEDS: PROTONIX IV 40 MG IV ×2 (08:39→20:18)
[2024-04-23] MEDS: NSS (PRESERVATIVE FREE) 10 ML IV ×2 (08:39→20:19)
[2024-04-23] MEDS: DILAUDID 0.5 MG IV ×2 (08:41→17:09)
[2024-04-23] MEDS: CELLCEPT PO (10:35)
[2024-04-23] MEDS: PROGRAF PO (10:35)
--- NOTE | 2024-04-23 11:01 | W.PN.HOSP.TC ---
Today's Communication/Plan
-
trial of clears
?cannaboid hyperemesis
GI recs
IVF for now
monitor BP-adjust meds accordingly
Assessment / Plan
Assessment / Plan
#Abdominal pain likely secondary to duodenitis vs. enteritis vs. cannabinoid hyperemesis vs low likelihood of pancreatitis in the setting of mild alcohol usage with history of pancreatic transplant
#History of pancreatitis in the past
#Nausea and vomiting secondary to above
#Leukocytosis likely reactive Resolved
#Mild hypercalcemia likely secondary dehydration-improved
Cont with IVF
Pain control
MRI abdomen Severe diffuse atrophy of the [place] pancreas. Slightly distended main pancreatic duct and very subtle edema anterior and superior to the pancreatic head and proximal body. Findings suspicious for mild pancreatitis. Intrahepatic and
extrahepatic bile duct dilatation. No persistent or reproducible intraluminal filling defects are identified to indicate choledocholithiasis.
may require EGD
Antinausea meds
PPI
Does smokes marijuana vaping almost daily for pain at home. Also takes Edibles but not frequently.
Trial of clears. okay to shower\\
GI evaluation
#Mild acute duodenitis
#Pneumobilia-defer to GI.
trial of clears
PPI
GI on following
#Transaminitis likely secondary to pancreatitis/medications versus dehydration
Trend CMP for now
significant improvement
#Primary hypertension likely elevated due to pain
Not on any meds. Monitor for now
PRN IV meds.
Start po hydralazine but pt refusing at times.
#Renal transplant
#Elevated Cr likely 2/2 dehydration
Continue prednisone, Prograf and mycophenolate
IVF. Trend Cr.
#Chronic thrombocytopenia
Trend CBC for now
Improving
Hypothyroidism
Cont synthroid
Anxiety/depression
Continue with Xanax
History of chronic inflammatory demyelinating polyneuropathy
Continue with Tizanidine
History of type 2 diabetes
History of cholecystitis status postcholecystectomy
History of partial hysterectomy
Marijuana user-smokes/vapes daily and takes edible once a while
Hx of RUE DVT -off Eliquis
DVT ppx-lovenox
DNR/DNI confirmed with spouse per pt.
Anticipated Discharge: > 48 hours
Subjective/Interval History
-
Date of Service: April 23, 2024
states of ongoing nausea, dry heaves and abd pain
Objective Data
-
Labs:
Laboratory Results
04/23/24
06:10
WBC 8.5
Hgb 13.1
Hct 40.9
Plt Count 134 D
Sodium 139
Potassium 4.0
Chloride 106
Carbon Dioxide 22
BUN 18 H
Creatinine 1.1 H
Glucose 102 H
Calcium 9.6
Total Bilirubin 0.7
AST 41 H
ALT 28
Alkaline Phosphatase 109
Vital Signs:
Vital Signs
Temp Pulse Resp BP Pulse Ox
98.3 F 105 16 174/107 95
04/23/24 07:10 04/23/24 07:10 04/23/24 07:10 04/23/24 10:35 04/23/24 08:46
I&O
04/22/24 04/23/24 04/24/24
06:59 06:59 06:59
Intake Total 0 / 0 840 / 840
Output Total 1625 / 1625
Balance 0 / 0 -785 / -785
Physical Exam
-
General: No Apparent Distress and Appears Chronically Ill
HEENT: Normocephalic, Atraumatic and Moist Mucous Membranes; Negative Oxygen
Respiratory: Clear to Auscultation
Cardiac: Regular Rhythm and S1/S2
Breast: Deferred by me
GI: Soft, Nondistended and Tender; Negative Normal Bowel Sounds (Bowel sound present although decreased)
Rectal: Deferred by Provider
Genito-urinary: Deferred by me
Musculoskeletal: No Edema
Neuro: Awake, Alert, Oriented, AO x 3 and No Motor Deficits
Data Reviewed
-
Total Time Spent with Patient (in minutes): 56
[2024-04-23 11:07] VITALS: BP 156/89
--- NOTE | 2024-04-23 11:16 | W.PN.GI.CBS2 ---
Addendum entered and electronically signed by Ledy Myles MD 04/23/24 12:29:
I saw and examined the patient.
The MEDICAL ASSEMBLER's note was reviewed and I agree with the note.
Comment: Patient still with pain and nausea with dry heaves no emesis. Noted results of MRI possible pancreatitis of [place] pancreas. She had refused her transplant medications last night and today morning discussed with nurse also at length.
Encouraged patient to try to take her medications and also renal consult to manage her transplant medications. Continue PPI and Zofran and IV fluids for now encouraged also to try some clear liquids by mouth. Again patient and are refusing
evaluation at a tertiary center given her prior kidney and pancreatic transplant. Follow-up with her outpatient GI Anuj after discharge and also she sees her combination saw operator at [facility]. Consider endoscopy to rule out possible PUD if symptoms
persist her LFTs are also mildly elevated they have been trending down there was no evidence of choledocholithiasis on the MRCP
Original Note:
Today's Communication / Plan
-
concern for pancreatitis per MRI-- duodenitis vs enteritis in differential-- I also reviewed with Dr. Palmer pt with hx Cannibis ? hyperemesis as possibilty with stable lipase and labs
still with severe pain, I spoke with spouse -- she typically take 7-10 for improvement
cont pain control, antiemetics
clear if able to tolerate
IVF
I again encouraged pt and spouse to seek care at tertiary center with transplants are done-- they both decline
for renal eval as still unable to take immunosuppression with also hx renal transplant
cont PPI
would consider RTC dosing for antiemetics but pt still drowsy with current regiment
I sent message to see Dr. Darling in office after admission as they are willing to see vs Dr. Cintron who she has seen in past
Assessment / Plan
-
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
ago at [facility], prior barron for cholecystitis , history of ERCP with admission in 2022 with pancreatitis with noted RLQ stranding and vomiting with concern for graft pancreatitis. She improved with slow progression of diet and IVF. She now returns
today with recurrent abdominal pain with vomiting and coffee ground emesis. On admission cT completed with limitation without contrast new pneumobilia not seen on prior imaging. Also noted non specific edema upper abdomen in periduodenal regions
with acute duodenitis vs underlying ulcer. Labs notable for WBC 14,600- improved after discharge hbg 16, bili 1.5, AST 137, alt 54, alk phos 148 and lipase of 51. Pt is on chronic tacrolimus, mycophenolate. Her last endoscopy and
colonoscopy were performed within the past 1 to 2 years at [facility].
04/21/24CT Abd/pel Without Iv Or Oral
Limited examination without intravenous and oral contrast. There is new pneumobilia which may represent sphincter malfunction or be secondary to previous sphincterotomy, although the latter is not favored as no previous CT demonstrated pneumobilia.
Nonspecific edema in the upper abdomen which appears to be centered in the periduodenal region and favored to represent acute duodenitis. Underlying duodenal ulcer cannot be excluded.
Chronic/incidental findings as detailed in the body of the report.
04/23/24 MR abdomen
Severe diffuse atrophy of the [place] pancreas. Slightly distended main pancreatic duct and very subtle edema anterior and superior to the pancreatic head and proximal body. Findings suspicious for mild pancreatitis.
Intrahepatic and extrahepatic bile duct dilatation. No persistent or reproducible intraluminal filling defects are identified to indicate choledocholithiasis.
Incidental note is made of low insertion of a distended cystic duct remnant, which measures 5 mm in diameter.
Impression:
- Abdominal pain with concern for underlying pancreatitis in setting of transplanted pancreas with recurrent episode 4th episode in 2 years
- N/V- with Coffee ground emesis
-CT with pneumobilia
-CT with acute duodenitis
- pancreatic/renal transplant 20 years ago
-leukocytosis - improved
-thrombocytopenia
other med problems:
- hx covid
-CIPD
-GERD
-DM
- barron
-neuropathy
-hx DVT
Recommendations
concern for pancreatitis per MRI-- duodenitis vs enteritis in differential-- I also reviewed with Dr. Palmer pt with hx Cannibis ? hyperemesis as possibilty with stable lipase and labs
still with severe pain, I spoke with spouse -- she typically take 7-10 for improvement
cont pain control, antiemetics
clear if able to tolerate
IVF
I again encouraged pt and spouse to seek care at tertiary center with transplants are done-- they both decline
for renal eval as still unable to take immunosuppression with also hx renal transplant
cont PPI
would consider RTC dosing for antiemetics but pt still drowsy with current regiment
I sent message to see Dr. Darling in office after admission as they are willing to see vs Dr. Cintron who she has seen in past
Subjective
Subjective
Date of Service: April 23, 2024
on clear diet still with severe pain and pt states this is typical for her bouts of pancreatitis per family normally 7-10 days
Objective
Data Reviewed
Laboratory Data:
Laboratory Results
04/23/24 06:10
04/23/24 06:10
Laboratory Results
Total Bilirubin 0.7 mg/dl (0.2-1.3) 04/23/24 06:10
AST 41 U/L (14-36) H 04/23/24 06:10
ALT 28 U/L (0-35) 04/23/24 06:10
Alkaline Phosphatase 109 U/L (38-126) 04/23/24 06:10
Lipase 51 U/L (23-300) 04/21/24 05:14
Vital Signs and I&O:
Vital Signs
Temp Pulse Resp BP Pulse Ox
98.1 F 103 16 156/89 94
04/23/24 11:07 04/23/24 11:07 04/23/24 11:07 04/23/24 11:07 04/23/24 11:07
I&O
04/22/24 04/23/24 04/24/24
06:59 06:59 06:59
Intake Total 0 / 0 840 / 840
Output Total 1625 / 1625
Balance 0 / 0 -785 / -785
Physical Exam
Physical Exam
HEENT: Anicteric and Moist mucous membranes
Cardiology: Normal Sinus Rhythm
Pulmonary: Clear
GI: Soft, Distended, Tender (diffuse) and Other (limited exam with patient ability to turn on back )
Extremities: No Edema
Neuro: Other (answering some questions )
--- NOTE | 2024-04-23 11:27 | PTCARENOTE ---
GI doctor would prefer pt to not be straight cath. they would prefer her to continue to use bed huerta. Increase mobility attempt to continue Clears, meds with applesauce if need be. pt would not really allow nurse or GI docs to to do full exam of abd
to day. did let pt know continued use of diluadid also slows belly, activity will encourage GI motility
--- NOTE | 2024-04-23 13:04 | W.PN.UPDATE ---
Update Note
Progress Note Update
Discussed case briefly with automated access systems technician who recommended patient to be transferred to a tertiary care center for immunosuppressant medication as lack of transplant center over here.
Patient has been taking her immunosuppressive medication except for last night and this morning.
Reiterated encouragement for the patient to take CellCept and Prograf.
Will DC prednisone 5 mg and start patient on hydrocortisone 50 every 8h
All the above was discussed with patient's spouse who stated patient and himself does not want patient to be transferred to [place] or [facility] at the transplant center. They understand that if CellCept and Prograf are not taken there is a risk of
rejection and even with that understanding both of them refused transfer to [facility] or other transplant center.
If unable to swallow Prograf and consider transitioning to sublingual however at this point patient did states she will try to take to p.o. medication of CellCept and Prograf.
Discussed with patient spouse over the phone to encourage and emphasized to patient about importance of taking immunosuppressant medication. Other alternative would be to place Dobbhoff tube for immunosuppressant medication and nutrition/tube
feeding.
[2024-04-23] MEDS: SOLU-CORTEF 50 MG IV ×3 (13:39→23:43)
[2024-04-23] MEDS: ZOFRAN 4 MG IV (13:45)
[2024-04-23] MEDS: PROGRAF 0.5 MG PO ×2 (13:58→21:55)
[2024-04-23] MEDS: CELLCEPT 500 MG PO ×2 (14:00→21:55)
[2024-04-23 15:10] VITALS: BP 195/118
--- NOTE | 2024-04-23 15:11 | CM ---
Duodenitis vs. enteritis vs. cannabinoid hyperemesis. Patient and are declining transfer to [place] or [place] (renal and pancreas transplant 20 years ago). Continues with abd pain and retching. Discharge Plan of care: TBD.
[2024-04-23] MEDS: LOVENOX 40 MG SC (17:09)
[2024-04-23] MEDS: APRESOLINE 25 MG PO (17:36)
[2024-04-23 19:15] VITALS: BP 220/126
[2024-04-23] MEDS: XANAX 1 MG PO (21:55)
[2024-04-23 23:56] VITALS: BP 95/57
[2024-04-24] VITALS (10 sets, daily range): BP systolic 128–197; BP diastolic 66–126; BMI 21.5
[2024-04-24] MEDS: DILAUDID 1 MG IV ×4 (03:35→17:09)
[2024-04-24] MEDS: SYNTHROID 50 MCG PO (06:30)
[2024-04-24 08:08] LABS: % Immature Granulocytes 0.4 % (0-0.5); % Lymphocytes 10.2 % (20.5-51.1); % Monocytes 2.7 % (1.7-9.3); % Neutrophils 86.7 % (42.2-75.2); Absolute Lymphocytes 0.7 10^3/uL (1.2-3.4); Absolute Monocytes 0.2 10^3/uL (0.1-0.6); Absolute Neutrophils 6.1 10^3/uL (1.4-6.5); Hematocrit 38.7 % (37.0-47.0); Hemoglobin 12.5 g/dL (12.0-16.0); Mean Corp Hgb Conc. 32.3 g/dL (33.0-37.0); Mean Corpuscular Hgb 29.7 pg (27.0-31.0); Mean Corpuscular Volume 91.9 fL (81.0-99.0); Mean Platelet Volume 10.2 fL (7.4-10.4); Nucleated Red Blood Cells % 0 %; Platelet Count 127 10^3/uL (130-400); Red Blood Cell Count 4.21 10^6/uL (4.20-5.40); Red Cell Dist. Width 13.6 % (11.5-14.5); White Blood Cell Count 7.1 10^3/uL (4.8-10.8)
[2024-04-24 08:28] LABS: ALT (SGPT) 21 U/L (0-35); AST (SGOT) 33 U/L (14-36); Albumin 3.5 g/dl (3.5-5.0); Alkaline Phosphatase 101 U/L (38-126); Blood Urea Nitrogen 25 mg/dl (7-17); Calcium 9.7 mg/dl (8.4-10.2); Carbon Dioxide 22 mmol/L (22-30); Chloride 105 mmol/L (98-107); Estimated Creatinine Clearance 36 ml/min; Glucose 101 mg/dl (70-99); Potassium 4.2 mmol/L (3.5-5.1); Sodium 138 mmol/L (135-145); Total Bilirubin 0.6 mg/dl (0.2-1.3); eGFR 47.08
[2024-04-24] MEDS: LR 1000 IV ×2 (08:55→16:55)
[2024-04-24] MEDS: PROTONIX IV 40 MG IV ×2 (08:56→20:06)
[2024-04-24] MEDS: SOLU-CORTEF 50 MG IV ×2 (08:56→15:14)
[2024-04-24] MEDS: NSS (PRESERVATIVE FREE) 10 ML IV ×2 (08:56→20:06)
[2024-04-24] MEDS: THERAGRAN PO (08:57)
[2024-04-24] MEDS: VITAMIN D3 (cholecalciferol) PO (08:57)
[2024-04-24] MEDS: APRESOLINE PO (08:58)
[2024-04-24] MEDS: ZOFRAN 4 MG IV ×3 (08:59→21:33)
[2024-04-24] MEDS: APRESOLINE 10 MG IV ×2 (09:02→15:25)
--- NOTE | 2024-04-24 10:41 | W.PN.HOSP.TC ---
Today's Communication/Plan
-
Increase IVF
BP meds adjusted
check tac level
GI recs
refused transfer.
Assessment / Plan
Assessment / Plan
#Abdominal pain likely secondary to duodenitis vs. enteritis vs. cannabinoid hyperemesis vs low likelihood of pancreatitis in the setting of mild alcohol usage with history of pancreatic transplant
#History of pancreatitis in the past
#Nausea and vomiting secondary to above
#Leukocytosis likely reactive Resolved
#Mild hypercalcemia likely secondary dehydration-improved
Cont with IVF
Pain control
MRI abdomen Severe diffuse atrophy of the [place] pancreas. Slightly distended main pancreatic duct and very subtle edema anterior and superior to the pancreatic head and proximal body. Findings suspicious for mild pancreatitis. Intrahepatic and
extrahepatic bile duct dilatation. No persistent or reproducible intraluminal filling defects are identified to indicate choledocholithiasis.
may require EGD
Antinausea meds
PPI
Does smokes marijuana vaping almost daily for pain at home. Also takes Edibles but not frequently.
Trial of clears. okay to shower.
GI evaluation
#Mild acute duodenitis
#Pneumobilia-defer to GI.
trial of clears
PPI
GI on following
#Transaminitis likely secondary to pancreatitis/medications versus dehydration
Trend CMP for now
Resolved
#Primary hypertension likely elevated due to pain
Not on any meds. Monitor for now
PRN IV meds.
Increase hydralazine to 25 mg 3 times daily and start Lopressor
Monitor on telemetry
#Renal transplant/Pancreatic transplant
#Elevated Cr likely 2/2 dehydration
Continue Prograf and mycophenolate. Prednisone held and started on hydrocortisone 50 every 8
IVF. Trend Cr. If with continued uptrending of creatinine will need nephrology input
See update note form 04/23 (basically patient and spouse poor refused to be transferred to a transplant eval and they understand patient needs to take her p.o. medication and refusing transfer to any tertiary care center). Patient and family
understand complications if patient refusing immunosuppressant medication.
Sees box hinge and lock attacher Dr. Zoraida Montemayor at [place]
#Chronic thrombocytopenia
Trend CBC for now
Improving
Hypothyroidism
Cont synthroid
Anxiety/depression
Continue with Xanax
History of chronic inflammatory demyelinating polyneuropathy
Continue with Tizanidine
History of type 2 diabetes
History of cholecystitis status postcholecystectomy
History of partial hysterectomy
Marijuana user-smokes/vapes daily and takes edible once a while
Hx of RUE DVT -off Eliquis
DVT ppx-lovenox
DNR/DNI confirmed with spouse per pt.
Anticipated Discharge: > 48 hours
Subjective/Interval History
-
Date of Service: April 24, 2024
remains with nausea and abd pain
taking po meds now
Objective Data
-
Labs:
Laboratory Results
04/24/24
07:09
WBC 7.1
Hgb 12.5
Hct 38.7
Plt Count 127 L
Sodium 138
Potassium 4.2
Chloride 105
Carbon Dioxide 22
BUN 25 H
Creatinine 1.3 H
Glucose 101 H
Calcium 9.7
Total Bilirubin 0.6
AST 33
ALT 21
Alkaline Phosphatase 101
Vital Signs:
Vital Signs
Temp Pulse Resp BP Pulse Ox
98.1 F 110 18 180/111 96
04/24/24 07:10 04/24/24 09:02 04/24/24 07:10 04/24/24 09:02 04/24/24 07:10
I&O
04/23/24 04/24/24 04/25/24
06:59 06:59 06:59
Intake Total 840 / 840 1410 / 1410
Output Total 1625 / 1625
Balance -785 / -785 1410 / 141
Physical Exam
-
General: No Apparent Distress and Appears Chronically Ill
HEENT: Normocephalic, Atraumatic and Moist Mucous Membranes; Negative Oxygen
Respiratory: Clear to Auscultation
Cardiac: Regular Rhythm and S1/S2
Breast: Deferred by me
GI: Soft, Nondistended and Tender; Negative Normal Bowel Sounds (Bowel sound present although decreased)
Rectal: Deferred by Provider
Genito-urinary: Deferred by me
Musculoskeletal: No Edema
Neuro: Awake, Alert, Oriented, AO x 3 and No Motor Deficits
Psych: Calm
Data Reviewed
-
Total Time Spent with Patient (in minutes): 61
[2024-04-24] MEDS: CELLCEPT 500 MG PO ×2 (10:55→21:26)
[2024-04-24] MEDS: PROGRAF 0.5 MG PO ×2 (10:55→21:27)
[2024-04-24 11:19] LABS: Magnesium 1.6 mg/dl (1.6-2.3); Phosphorus 3.7 mg/dl (2.5-4.5)
[2024-04-24] MEDS: LOPRESSOR 12.5 MG PO (12:15)
--- NOTE | 2024-04-24 12:41 | PN.CDI ---
CDI
- -
CDI:
Physician Documentation Request
Admit Date: 04/21/24 09:16
Dear Doctor Estela,
Clinical Indicators:
Patient admitted with nausea/vomiting; PMH includes renal transplant
Cr/GFR trend:
04/21/24 04/22/24 04/23/24
05:14 05:32 06:10
Creatinine 1.2 H 1.0 1.1 H
eGFR 51.82 > 60.00 57.52
04/24/24
07:09
Creatinine 1.3 H
eGFR 47.08
Please clarify which of the following accurately represents the patient's renal status:
NOLVIA
Rise in creatinine only
CKD, please specify stage
Other
Criteria for NOLVIA*
1 Increase in serum creatinine by > or = to 0.3 mg/dL (> or = to 26.5 micromol/L) within 48 hours, OR
2 Increase in serum creatinine to > or = to 1.5 times baseline, which is known or presumed to have occurred within 7 days, OR
3 Urine volume < 0.5 nL/kg/hour for six hours
Stages of Chronic Kidney Disease*
Level Description GFR
G1 Normal or High >90
G2 Mildly decreased 60-89
G3a Mildly to moderately decreased 45-59
G3b Moderately to severely decreased 30-44
G4 Severely decreased 15-29
G5 Kidney failure <15
Use of terms such as suspected, likely, concern for, or probable (associated with a specific diagnosis that is being evaluated, monitored, or treated as if it exists) are acceptable and can be coded in the inpatient setting, when documented at the
time of discharge.
Thank you,
Teresa Riddle RN BSN
CDI Specialist
available via tiger text
Please use your independent medical judgment in providing your response.
*Source: Kidney Disease: Improving Global Outcomes (KDIGO) 2012
--- NOTE | 2024-04-24 12:48 | PN.CDI ---
CDI
- -
CDI:
Physician Documentation Request
Admit Date: 04/21/24 09:16
Dear Doctor Estela,
Clinical Indicators:
Patient admitted with nausea/vomiting.
04/24 PN, 'Primary hypertension likely elevated due to pain...Increase hydralazine to 25 mg 3 times daily and start Lopressor'
Labetalol 10mg IV x 1 dose.
BP trend:
04/22/24
15:15 04/23/24
03:30 04/23/24
15:10
Blood pressure 180/100 196/109 195/118
04/23/24
19:15 04/24/24
03:30 04/24/24
07:10
Blood pressure 220/126 197/126 180/111
Please clarify which, if any of the following, is a more accurate diagnosis reflecting the type and acuity of the documented hypertension:
Hypertensive Urgency - B/P is severely elevated (systolic > or = to 180 or diastolic > or = to 110) but there is no associated organ damage. Symptoms may include: headache, shortness of breath, nosebleeds, severe anxiety. Treatment usually consists
of addition to or adjusting of oral medications and does not generally necessitate hospitalization.
Hypertensive Emergency - B/P is severely elevated (systolic > or = to 180 or diastolic > or = to 110) but can occur at lower levels especially in patients who did not previously have high B/P. There is usually associated organ damage. Symptoms may
include: memory loss, LOC, CVA, IA, angina, renal failure, pulmonary edema. Generally requires more aggressive treatment and a hospitalization.
Hypertensive Crisis - an acute elevation in B/P that can lead to organ damage. Broad term that is further differentiated to include urgency or emergency based on presence of organ damage.
Essential primary hypertension only
Other (please specify)
Use of terms such as suspected, likely, concern for, or probable (associated with a specific diagnosis that is being evaluated, monitored, or treated as if it exists) are acceptable and can be coded in the inpatient setting, when documented at the
time of discharge.
Thank you,
Teresa Riddle RN BSN
CDI Specialist
available via tiger text
Please use your independent medical judgment in providing your response.
--- NOTE | 2024-04-24 13:05 | W.PN.GI.CBS2 ---
Today's Communication / Plan
-
Continue supportive care
Assessment / Plan
-
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
ago at [facility], prior barron for cholecystitis , history of ERCP with admission in 2022 with pancreatitis with noted RLQ stranding and vomiting with concern for graft pancreatitis. She improved with slow progression of diet and IVF. She now returns
today with recurrent abdominal pain with vomiting and coffee ground emesis. On admission cT completed with limitation without contrast new pneumobilia not seen on prior imaging. Also noted non specific edema upper abdomen in periduodenal regions
with acute duodenitis vs underlying ulcer. Labs notable for WBC 14,600- improved after discharge hbg 16, bili 1.5, AST 137, alt 54, alk phos 148 and lipase of 51. Pt is on chronic tacrolimus, mycophenolate. Her last endoscopy and
colonoscopy were performed within the past 1 to 2 years at [facility] [place] [facility].
04/21/24CT Abd/pel Without Iv Or Oral
Limited examination without intravenous and oral contrast. There is new pneumobilia which may represent sphincter malfunction or be secondary to previous sphincterotomy, although the latter is not favored as no previous CT demonstrated pneumobilia.
Nonspecific edema in the upper abdomen which appears to be centered in the periduodenal region and favored to represent acute duodenitis. Underlying duodenal ulcer cannot be excluded.
Chronic/incidental findings as detailed in the body of the report.
04/23/24 MR abdomen
Severe diffuse atrophy of the [place] pancreas. Slightly distended main pancreatic duct and very subtle edema anterior and superior to the pancreatic head and proximal body. Findings suspicious for mild pancreatitis.
Intrahepatic and extrahepatic bile duct dilatation. No persistent or reproducible intraluminal filling defects are identified to indicate choledocholithiasis.
Incidental note is made of low insertion of a distended cystic duct remnant, which measures 5 mm in diameter.
Impression:
- Abdominal pain with concern for underlying pancreatitis in setting of transplanted pancreas with recurrent episode 4th episode in 2 years
- N/V- with Coffee ground emesis
-CT with pneumobilia
-CT with acute duodenitis
- pancreatic/renal transplant 20 years ago
-leukocytosis - improved
-thrombocytopenia
other med problems:
- hx covid
-CIPD
-GERD
-DM
- barron
-neuropathy
-hx DVT
Recommendations
Continue clear liquid diet. Advance as tolerated if symptoms better tomorrow
Pain management as per medical team
Patient/family does not want transfer to tertiary facility
cont PPI
Advised to follow-up with transplant team/tertiary center
Avoid cannabis
Follow-up with GI Dr. Cintron as outpatient on discharge
Total Time Spent with Patient (in minutes): 35
Subjective
Subjective
Date of Service: April 24, 2024
Continues to have abdominal pain/nausea. Denies any vomiting. Tolerating clear liquid
Objective
Data Reviewed
Laboratory Data:
Laboratory Results
04/24/24 07:09
04/24/24 07:09
Laboratory Results
Phosphorus 3.7 mg/dl (2.5-4.5) 04/24/24 07:09
Magnesium 1.6 mg/dl (1.6-2.3) 04/24/24 07:09
Total Bilirubin 0.6 mg/dl (0.2-1.3) 04/24/24 07:09
AST 33 U/L (14-36) 04/24/24 07:09
ALT 21 U/L (0-35) 04/24/24 07:09
Alkaline Phosphatase 101 U/L (38-126) 04/24/24 07:09
Lipase 51 U/L (23-300) 04/21/24 05:14
Vital Signs and I&O:
Vital Signs
Temp Pulse Resp BP Pulse Ox
98.0 F 106 18 188/110 92
04/24/24 11:05 04/24/24 12:15 04/24/24 11:05 04/24/24 12:15 04/24/24 11:05
I&O
04/23/24 04/24/24 04/25/24
06:59 06:59 06:59
Intake Total 840 / 840 1410 / 1410
Output Total 1625 / 1625
Balance -785 / -785 1410 / 1410
Physical Exam
Physical Exam
GI: Soft and Non Distended
[2024-04-24] MEDS: TRANDATE 5 MG IV (13:19)
--- NOTE | 2024-04-24 13:22 | PTCARENOTE ---
Pt. bp 189/104. made aware. IV Dilaudid prn given for pain management. IV Labetalol prn added in addition for IV Hydralazine PRN. Will reassess bp.
[2024-04-24 14:58] LABS: Urine Albumin 2+ (Neg - Trace); Urine Bilirubin 1+ (Negative); Urine Character Slightly Cloudy (Clear); Urine Color Yellow; Urine Glucose Negative (Negative); Urine Ketone 2+ (Negative); Urine Leukocyte 1+ (Negative); Urine Nitrite Negative (Negative); Urine Occult Blood 1+ (Negative); Urine Urobilinogen Negative (Neg - 1+)
[2024-04-24] MEDS: APRESOLINE 25 MG PO ×2 (15:14→21:27)
[2024-04-24 15:24] LABS: Urine Bacteria Many (Negative); Urine Red Blood Cell 0-2 /HPF (0-2); Urine White Cell 50-60 /HPF (0-5)
--- NOTE | 2024-04-24 15:25 | CM ---
Therapy recommended HH PT. Attempted to meet with patient for HH preference. Patient in bed moaning with abdominal pain and in position. Will obtain HH preference at a later time. Will need HH VN and PT/OT.
[2024-04-24] MEDS: LOVENOX 40 MG SC (17:08)
[2024-04-24] MEDS: LOPRESSOR 25 MG PO (19:50)
[2024-04-24] MEDS: XANAX 1 MG PO (21:26)
[2024-04-24] MEDS: DILAUDID 0.5 MG IV (21:26)
[2024-04-25] MEDS: SOLU-CORTEF 50 MG IV ×4 (01:24→22:50)
[2024-04-25] MEDS: LR 1000 IV ×3 (01:26→19:42)
[2024-04-25] MEDS: DILAUDID 1 MG IV ×4 (02:49→20:02)
[2024-04-25] MEDS: APRESOLINE 10 MG IV (02:57)
[2024-04-25] MEDS: TRANDATE 5 MG IV (05:06)
[2024-04-25] MEDS: DILAUDID 0.5 MG IV ×3 (05:08→22:50)
[2024-04-25] MEDS: ZOFRAN 4 MG IV (05:08)
[2024-04-25 05:34] VITALS: BP 122/67
[2024-04-25] MEDS: SYNTHROID 50 MCG PO (06:25)
[2024-04-25 07:10] VITALS: BP 142/91
[2024-04-25] MEDS: LOPRESSOR 25 MG PO ×2 (08:17→19:44)
[2024-04-25] MEDS: APRESOLINE 25 MG PO ×3 (08:17→22:52)
[2024-04-25] MEDS: NSS (PRESERVATIVE FREE) 10 ML IV ×2 (08:18→19:48)
[2024-04-25] MEDS: PROTONIX IV 40 MG IV ×2 (08:18→19:48)
[2024-04-25 09:53] LABS: ALT (SGPT) 18 U/L (0-35); AST (SGOT) 31 U/L (14-36); Albumin 3.3 g/dl (3.5-5.0); Alkaline Phosphatase 95 U/L (38-126); Blood Urea Nitrogen 32 mg/dl (7-17); Calcium 9.5 mg/dl (8.4-10.2); Carbon Dioxide 22 mmol/L (22-30); Chloride 105 mmol/L (98-107); Estimated Creatinine Clearance 34 ml/min; Glucose 101 mg/dl (70-99); Potassium 4.4 mmol/L (3.5-5.1); Sodium 137 mmol/L (135-145); Total Bilirubin 0.4 mg/dl (0.2-1.3); Total Protein 5.7 g/dl (6.3-8.2); eGFR 43.07
[2024-04-25] MEDS: CELLCEPT 500 MG PO ×2 (10:33→22:51)
[2024-04-25] MEDS: PROGRAF 0.5 MG PO (10:33)
--- NOTE | 2024-04-25 10:43 | W.PN.HOSP.TC ---
Today's Communication/Plan
-
Encourage out of bed
PT eval
Continue with IV fluids will ask nephro for input
Blood pressure improving
Assessment / Plan
Assessment / Plan
#Abdominal pain likely secondary to duodenitis vs. enteritis vs. cannabinoid hyperemesis vs low likelihood of pancreatitis in the setting of mild alcohol usage with history of pancreatic transplant
#History of pancreatitis in the past
#Nausea and vomiting secondary to above
#Leukocytosis likely reactive Resolved
#Mild hypercalcemia likely secondary dehydration-improved
Cont with IVF
Pain control
MRI abdomen Severe diffuse atrophy of the [place] pancreas. Slightly distended main pancreatic duct and very subtle edema anterior and superior to the pancreatic head and proximal body. Findings suspicious for mild pancreatitis. Intrahepatic and
extrahepatic bile duct dilatation. No persistent or reproducible intraluminal filling defects are identified to indicate choledocholithiasis.
may require EGD
Antinausea meds
PPI
Does smokes marijuana vaping almost daily for pain at home. Also takes Edibles but not frequently.
Trial of clears. okay to shower.
GI evaluation
#Mild acute duodenitis
#Pneumobilia-defer to GI.
trial of clears
PPI
GI on following
#Transaminitis likely secondary to pancreatitis/medications versus dehydration
Trend CMP for now
Resolved
#Primary hypertension likely elevated due to pain
Not on any meds. Monitor for now
PRN IV meds.
Increase hydralazine to 25 mg 3 times daily and start Lopressor
Monitor on telemetry
Blood pressure improving
#Renal transplant/Pancreatic transplant
#Acute kidney injury likely secondary to decreased p.o. intake
Continue Prograf and mycophenolate. Prednisone held and started on hydrocortisone 50 every 8, patient has been compliant with taking p.o. meds except for 1 dose refusal.
IVF. Trend Cr. Creat up trended to 1.4 today. Will defer further fluids to nephrology.
See update note form 04/23 (basically patient and spouse both refused to be transferred to a transplant eval and they understand patient needs to take her p.o. medication and refusing transfer to any tertiary care center). Patient and family
understand complications if patient refusing immunosuppressant medication.
Sees artist woodblock Dr. Zoraida Montemayor at [place]
No obstruction was noted on the recent MRI.
Tacrolimus level sent
Patient creatinine uptrending. Will ask nephrology for input.
# Intermittent urinary retention secondary to decreased mobility
Encourage patient to get out of bed and use commode
Like to avoid placing Jansen catheter
#Chronic thrombocytopenia
Trend CBC for now
Improving
Hypothyroidism
Cont synthroid
Anxiety/depression
Continue with Xanax
History of chronic inflammatory demyelinating polyneuropathy
Holding gabapentin and tizanidine for now
History of type 2 diabetes
History of cholecystitis status postcholecystectomy
History of partial hysterectomy
Marijuana user-smokes/vapes daily and takes edible once a while
Hx of RUE DVT -off Eliquis
DVT ppx-lovenox
DNR/DNI confirmed with spouse per pt.
PT/OT
Anticipated Discharge: > 48 hours
Subjective/Interval History
-
Date of Service: April 25, 2024
states of abd pain
sipping on to cranberry juice
willing to get oob
taking her PO meds without difficulty and with encouragement
Objective Data
-
Labs:
Laboratory Results
04/25/24
08:07
Sodium 137
Potassium 4.4
Chloride 105
Carbon Dioxide 22
BUN 32 H
Creatinine 1.4 H
Glucose 101 H
Calcium 9.5
Total Bilirubin 0.4
AST 31
ALT 18
Alkaline Phosphatase 95
Vital Signs:
Vital Signs
Temp Pulse Resp BP Pulse Ox
97.7 F 88 18 142/91 95
04/25/24 07:10 04/25/24 08:17 04/25/24 07:10 04/25/24 08:17 04/25/24 07:10
I&O
04/24/24 04/25/24 04/26/24
06:59 06:59 06:59
Intake Total 1410 / 1410 1860 / 1860
Output Total 250 / 250
Balance 1410 / 1410 1610 / 1610
Data Reviewed
-
Total Time Spent with Patient (in minutes): 58
[2024-04-25 11:00] VITALS: BP 165/86
[2024-04-25 11:05] VITALS: BP 186/99
--- NOTE | 2024-04-25 14:42 | W.CON.NEPH ---
Consultation
-
Date/Time Consultation Requested: 04/25/24 1042
Date/Time Consultation Performed: 04/25/24 1630
Requesting Provider: Rober Bran
Performing Provider: Miladis Douglas
Reason for Consultation: NOLVIA h/o K-P transplant
Medical History
-
Chief Complaint: Abd pain
History of Present Illness:
58-year-old female past medical history of renal and pancreatic transplant 20yrs ago on IS with cellcept, Prograf, Prednisone Sees nitrocellulose maker Dr. Zoraida Montemayor at [place] baseline cr 1, GERD on PPI, hypothyroidism on Levothyroxine, who came
with abdominal pain nausea and vomiting on 04/21. Reportedly pt had 1 can of alcoholic drink prior day and later she developed severe abdominal pain associate with nausea and vomiting of coffee-ground emesis. Of note patient also with CIDP and
smokes medical marijuana and prn edibles form of marijuana for severe pain. Patient does not follow-up with any trasnplant center. Follows up with nitrocellulose maker in [place] for her immunosuppressive medications. Patient with multiple
hospitalizations with similar symptomatology.
She is currently treated for pancreatitis. Currently followed by GI. She maintain on IVF. ON admit her cr was at 1.2 better at 1 next day but now slowly up trending to 1.4 hence nephrology consulted. Her old baseline cr is variable in range of 1-1.4
in [place] admit. BP are labile trend. Offers No chest pain or shortness of breath. no active n/v. Significant abd pain acute on chronic on multiple pain meds. No fever. Did not urinate as much today.
Past Medical History
chronic inflammatory demyelinating polyneuropathy, GERD, diabetes, history of pancreatitis, diabetic nephropathy, pancreatic/renal transplant 20 years ago, cholecystitis with cholecystectomy, history of ERCP, History of diabetic nephropathy, was on
PD prior to the transplant.
Past Surgical History: Other (Renal and pancreatic transplant Cholecystectomy)
Social History
Tobacco: Vaping (marijuana)
Alcohol: None
Drug: Marijuana
Personal:
Living: With Family
Family History
Family History: Not Pertinent
Allergies / Home Medications
Allergy/AdvReac Type Severity Reaction Status Date / Time
adhesive Allergy Rash Verified 04/21/24 04:56
Cephalosporins Allergy DIARRHEA Verified 04/21/24 04:56
promethazine [From Phenergan] Allergy Itching Verified 04/22/24 17:35
promethazine HCl Allergy Unknown Verified 04/22/24 17:35
[From Phenergan]
�Medication �Instructions �Recorded �Confirmed �Type
alprazolam 0.5 mg tablet 1 mg PO HS Mental Health/Anxiety 09/03/23 04/21/24 History
biotin 1 mg capsule 1 mg PO DAILY Supplement 09/03/23 04/21/24 History
diphenoxylate-atropine 2.5 1 tab PO QIDPRN PRN diarrhea 09/03/23 04/21/24 History
mg-0.025 mg tablet (Lomotil)
levothyroxine 50 mcg tablet 50 mcg PO DAILY Thyroid 09/03/23 04/21/24 History
mycophenolate mofetil 500 mg 500 mg PO Q12 Transplant 09/03/23 04/21/24 History
tablet (CellCept)
pantoprazole 40 mg tablet,delayed 40 mg PO DAILY Gastrointestinal 09/03/23 04/21/24 History
release Issue
prednisone 5 mg tablet 5 mg PO DAILY Anti-Inflammatory 09/03/23 04/21/24 History
Medical Marijuana 2 puff inhalation DAILYPRN PRN 04/21/24 04/21/24 History
mild pain
cholecalciferol (vitamin D3) 125 125 mcg PO DAILY Supplement 04/21/24 04/21/24 History
mcg (5,000 unit) tablet (Vitamin
D3)
gabapentin 600 mg tablet 600 mg PO TID Pain 04/21/24 04/21/24 History
ondansetron 4 mg disintegrating 4 mg PO Q6HPRN PRN nausea 04/21/24 04/21/24 History
tablet
tacrolimus 0.5 mg capsule, 0.5 mg PO Q12 Transplant 04/21/24 04/21/24 History
immediate-release
therapeutic multivitamin 1 tab PO DAILY Supplement 04/21/24 04/21/24 History
tizanidine 4 mg tablet 4 mg PO TIDPRN PRN spasms 04/21/24 04/21/24 History
Review of Systems
-
All complete 12 point ROS inquired and found negative other than stated in HPI
All other systems: Negative unless noted
Physical Exam
Vital Signs
Vital Signs
Temp Pulse Resp BP Pulse Ox
97.8 F 73 14 165/86 94
04/25/24 11:00 04/25/24 11:00 04/25/24 11:00 04/25/24 11:00 04/25/24 11:00
Lab Results
WBC 7.1 10^3/uL (4.8-10.8) 04/24/24 07:09
RBC 4.21 10^6/uL (4.20-5.40) 04/24/24 07:09
Hgb 12.5 g/dL (12.0-16.0) 04/24/24 07:09
Hct 38.7 % (37.0-47.0) 04/24/24 07:09
Plt Count 127 10^3/uL (130-400) L 04/24/24 07:09
Sodium 137 mmol/L (135-145) 04/25/24 08:07
Potassium 4.4 mmol/L (3.5-5.1) 04/25/24 08:07
Chloride 105 mmol/L (98-107) 04/25/24 08:07
Carbon Dioxide 22 mmol/L (22-30) 04/25/24 08:07
BUN 32 mg/dl (7-17) H 04/25/24 08:07
Creatinine 1.4 mg/dL (0.6-1.0) H 04/25/24 08:07
eGFR 43.07 04/25/24 08:07
Glucose 101 mg/dl (70-99) H 04/25/24 08:07
Calcium 9.5 mg/dl (8.4-10.2) 04/25/24 08:07
Phosphorus 3.7 mg/dl (2.5-4.5) 04/24/24 07:09
Albumin 3.3 g/dl (3.5-5.0) L 04/25/24 08:07
MRI abd: 04/22
IMPRESSION:
Severe diffuse atrophy of the [place] pancreas. Slightly distended main pancreatic duct and very subtle edema anterior and superior to the pancreatic head and proximal body. Findings suspicious for mild pancreatitis.
Intrahepatic and extrahepatic bile duct dilatation. No persistent or reproducible intraluminal filling defects are identified to indicate choledocholithiasis.
Incidental note is made of low insertion of a distended cystic duct remnant, which measures 5 mm in diameter.
CT abd/pelvis with out contrast;04/21
KIDNEYS/URETERS: Negative kidneys are atrophic. There is either a 3 mm nonobstructing calculus in the right kidney or focal calcific atherosclerotic disease. There is no hydronephrosis of the [place] kidneys. The left lower quadrant transplant kidney
demonstrates a 1 mm nonobstructing calculus in the upper pole. There is no hydronephrosis.
IMPRESSION:
Limited examination without intravenous and oral contrast. There is new pneumobilia which may represent sphincter malfunction or be secondary to previous sphincterotomy, although the latter is not favored as no previous CT demonstrated pneumobilia.
Nonspecific edema in the upper abdomen which appears to be centered in the periduodenal region and favored to represent acute duodenitis. Underlying duodenal ulcer cannot be excluded.
Chronic/incidental findings as detailed in the body of the report.
Physical Exam
General: Awake, Alert, Oriented, AOx3, No Distress and Nontoxic
HEENT: EOMI, Anicteric, Conjunctivae Clear and Other (facial edema mostly on left side and edema around eye noted)
Respiratory: Clear, Normal Excursion and Nonlabored Respirations
Cardiac: S1/S2 and Regular Rate/Rhythm
Breast: Deferred by me
Abdomen: Soft, Nondistended and Other (tender to mild touch)
Musculoskeletal: No Cyanosis, No Edema and Other (UE 1+edema but non in LEs)
Skin: No Rash
Neuro: Nonfocal/Grossly Intact
Psych: Appropriate and Other (sleepy during visit )
Assessment/Plan
-
IMP:
Abdominal pain suspected pancreatitis in the setting of mild alcohol usage with history of pancreatic transplant
S/p kidney/pancreatic transplant-20yr ago at [facility], f/u [place] Dr Montemayor
N/V- with Coffee ground emesis
-CT with pneumobilia
-CT with acute duodenitis
NOLVIA with CKD 3a
Mild hypercalcemia-resolved
Transaminitis
Intermittent urinary retention
Chronic thrombocytopenia
Hypothyroidism
GERD
Anxiety/depression
History of chronic inflammatory demyelinating polyneuropathy
History of type 2 diabetes
History of cholecystitis status postcholecystectomy
History of partial hysterectomy
Marijuana user-smokes/vapes daily and takes edible once a while
Hx of RUE DVT -off Eliquis
Nephrolithiasis
Plan:
A/w abd pain possible mild pancreatitis
cr up trend from 1 to 1.4, had similar patter before too
CT shows 1mm non obst stone of txp kidney
UA with bacteruria chronically, follow bladder scan and low threshold for martin
check Tac level-pending from today, missed 2 doses ACTUARIAL ASSISTANT and current dose is lower than home dosing -adjusted
if levels are in goal, likely wean down steroids
BPs are labile likely from pain and steroids
hydralazine and BB added per primary, can titrate up if needed
she seem to have edema mainly UE and face-check BNP and prn lasix , echo in [place] noted normal EF and mild LVH
decrease IVF rate
Pt refused to transfer to transplant center, does not want [place], requested that she will need to be affiliated with transplant center and we do not have all the resources here , he still refusing
this was explained to pt and by hospitalist before too
d/w pt and nursing
[2024-04-25] MEDS: LOVENOX 40 MG SC (17:21)
[2024-04-25 18:24] LABS: NT-proBNP 5040 pg/ml
[2024-04-25 19:05] VITALS: BP 189/99
--- NOTE | 2024-04-25 19:29 | PTCARENOTE ---
critical lab Tacrolimus 3.1. Jaycob Douglas notified via tiger text [id number]
[2024-04-25] MEDS: XANAX 1 MG PO (22:51)
[2024-04-25] MEDS: PROGRAF 1 MG PO (22:51)
[2024-04-25 23:00] VITALS: BP 168/95
[2024-04-26] VITALS (7 sets, daily range): BP systolic 129–198; BP diastolic 70–110
[2024-04-26] MEDS: DILAUDID 1 MG IV ×5 (03:44→21:36)
[2024-04-26] MEDS: SYNTHROID 50 MCG PO (05:48)
[2024-04-26] MEDS: DILAUDID 0.5 MG IV ×3 (05:50→15:19)
[2024-04-26] MEDS: LOPRESSOR 25 MG PO ×2 (08:15→20:16)
[2024-04-26] MEDS: NSS (PRESERVATIVE FREE) 10 ML IV ×2 (08:15→20:16)
[2024-04-26] MEDS: APRESOLINE 25 MG PO ×3 (08:15→21:37)
[2024-04-26] MEDS: PROTONIX IV 40 MG IV ×2 (08:16→20:16)
[2024-04-26] MEDS: SOLU-CORTEF 50 MG IV ×3 (08:16→23:14)
[2024-04-26 10:10] LABS: ALT (SGPT) 16 U/L (0-35); AST (SGOT) 33 U/L (14-36); Albumin 3.1 g/dl (3.5-5.0); Alkaline Phosphatase 74 U/L (38-126); Blood Urea Nitrogen 45 mg/dl (7-17); Carbon Dioxide 22 mmol/L (22-30); Chloride 106 mmol/L (98-107); Estimated Creatinine Clearance 34 ml/min; Glucose 90 mg/dl (70-99); Potassium 4.7 mmol/L (3.5-5.1); Sodium 135 mmol/L (135-145); Total Bilirubin 0.6 mg/dl (0.2-1.3); Total Protein 5.6 g/dl (6.3-8.2); eGFR 43.07
[2024-04-26] MEDS: PROGRAF 1 MG PO ×2 (10:28→21:36)
[2024-04-26] MEDS: CELLCEPT 500 MG PO ×2 (10:28→21:36)
--- NOTE | 2024-04-26 12:03 | W.PN.NEPH.PH ---
Today's Communication / Plan
-
stop IVF
Assessment/Plan
-
IMP:
Abdominal pain suspected pancreatitis in the setting of mild alcohol usage with history of pancreatic transplant
S/p kidney/pancreatic transplant-20yr ago at [facility], f/u [facility] Dr Montemayor
N/V- with Coffee ground emesis
-CT with pneumobilia
-CT with acute duodenitis
NOLVIA with CKD 3a
Mild hypercalcemia-resolved
Transaminitis
Intermittent urinary retention
Chronic thrombocytopenia
Hypothyroidism
GERD
Anxiety/depression
History of chronic inflammatory demyelinating polyneuropathy
History of type 2 diabetes
History of cholecystitis status postcholecystectomy
History of partial hysterectomy
Marijuana user-smokes/vapes daily and takes edible once a while
Hx of RUE DVT -off Eliquis
Nephrolithiasis
Plan:
A/w abd pain possible mild pancreatitis
cr up trend from 1 to 1.4, no change today, had similar patter before too
CT shows 1mm non obst stone of txp kidney
UA with bacteruria chronically, follow bladder scan and low threshold for martin
check Tac level-was 3.1 on 04/25, missed 2 doses UROLOGIC NURSE and dose adjusted
cont steroids same may need wean in ext 1-2days once Tac level is at goal, recheck in am
BPs are labile likely from pain and steroids
hydralazine and BB added per primary, can titrate up if needed
she seem to have edema mainly UE and face-high BNP stop IVF , echo in [place] noted normal EF and mild LVH
stop IVF and prn lasix
on 04/25 Pt refused to transfer to transplant center, does not want [facility], requested that she will need to be affiliated with transplant center and we do not have all the resources here , he still refusing
this was explained to pt and by hospitalist before too
d/w pt and nursing
-
-
Date of Service: April 26, 2024
CC / HPI / ROS
-
Chief Complaint:
NOLVIA, h/o KP trasnplant
History of Present Illness:
cr no change at 1.4
JUANA labile pattern
no fever
oliguric? with out martin , PVR 155
Review of Systems:
still with sig amount of abd pain
nausea+
no sob or cp
facial edema is better
Labs
-
Labs:
WBC 7.1 10^3/uL (4.8-10.8) 04/24/24 07:09
RBC 4.21 10^6/uL (4.20-5.40) 04/24/24 07:09
Hgb 12.5 g/dL (12.0-16.0) 04/24/24 07:09
Hct 38.7 % (37.0-47.0) 04/24/24 07:09
Plt Count 127 10^3/uL (130-400) L 04/24/24 07:09
Sodium 135 mmol/L (135-145) 04/26/24 09:11
Potassium 4.7 mmol/L (3.5-5.1) 04/26/24 09:11
Chloride 106 mmol/L (98-107) 04/26/24 09:11
Carbon Dioxide 22 mmol/L (22-30) 04/26/24 09:11
BUN 45 mg/dl (7-17) H 04/26/24 09:11
Creatinine 1.4 mg/dL (0.6-1.0) H 04/26/24 09:11
eGFR 43.07 04/26/24 09:11
Glucose 90 mg/dl (70-99) 04/26/24 09:11
Calcium 9.0 mg/dl (8.4-10.2) 04/26/24 09:11
Phosphorus 3.7 mg/dl (2.5-4.5) 04/24/24 07:09
Kye-W-Oelbsqfyqff Pept 5040 pg/ml 04/25/24 08:07
Albumin 3.1 g/dl (3.5-5.0) L 04/26/24 09:11
Physical Exam
-
Vital Signs:
Vital Signs
Temp Pulse Resp BP Pulse Ox
97.8 F 80 20 161/86 97
04/26/24 03:37 04/26/24 08:15 04/26/24 07:10 04/26/24 08:15 04/26/24 07:10
Cardiovascular:: Regular rate and rhythm
Respiratory:: Bilateral: CTA
Lung Excursion:: Normal
Abdomen:: Soft and Tender (even light touch)
Extremity Edema:: None: Bilateral:
Martin Catheter: No
Other Findings::
UE edema and facila edema improving
[2024-04-26] MEDS: LR IV (12:10)
--- NOTE | 2024-04-26 12:10 | W.PN.HOSP.TC ---
Today's Communication/Plan
-
Encourage oral intake
Encourage out of bed
Check abdomen xray -?ileus
Await further GI input
Assessment / Plan
Assessment / Plan
#Abdominal pain likely secondary to duodenitis vs. enteritis vs. cannabinoid hyperemesis vs low likelihood of pancreatitis in the setting of mild alcohol usage with history of pancreatic transplant
#History of pancreatitis in the past
#Nausea and vomiting secondary to above
#Leukocytosis likely reactive Resolved
#Mild hypercalcemia likely secondary dehydration-improved
Cont with IVF
Pain control
MRI abdomen Severe diffuse atrophy of the [place] pancreas. Slightly distended main pancreatic duct and very subtle edema anterior and superior to the pancreatic head and proximal body. Findings suspicious for mild pancreatitis. Intrahepatic and
extrahepatic bile duct dilatation. No persistent or reproducible intraluminal filling defects are identified to indicate choledocholithiasis.
may require EGD
Antinausea meds
PPI
Does smokes marijuana vaping almost daily for pain at home. Also takes Edibles but not frequently.
Will advance to full's however patient without much p.o. intake. Encouraged to drink more. May need to place Dobbhoff and start tube feeding?
Await further GI input
#Mild acute duodenitis
#Pneumobilia-defer to GI.
trial of clears
PPI
GI on following
#Transaminitis likely secondary to pancreatitis/medications versus dehydration
Trend CMP for now
Resolved
#Primary hypertension likely elevated due to pain
Not on any meds. Monitor for now
PRN IV meds.
Increase hydralazine to 25 mg 3 times daily and start Lopressor
Monitor on telemetry
Blood pressure improving
#Renal transplant/Pancreatic transplant
#Acute kidney injury likely secondary to decreased p.o. intake
Continue Prograf and mycophenolate. Prednisone held and started on hydrocortisone 50 every 8, patient has been compliant with taking p.o. meds.
Tacrolimus level is pending. Dose Prograf increased 1mg
IVF. Trend Cr. Creat up trended to 1.4 today. Will defer further fluids to nephrology.
See update note form 04/23 (basically patient and spouse both refused to be transferred to a transplant eval and they understand patient needs to take her p.o. medication and refusing transfer to any tertiary care center). Patient and family
understand complications if patient refusing immunosuppressant medication.
Sees ranch rider Dr. Zoraida Montemayor at [place]
No obstruction was noted on the recent MRI.
Tacrolimus level sent
Patient creatinine uptrending. IV fluid discontinued.
Appreciate nephro recs
# Intermittent urinary retention secondary to decreased mobility
Encourage patient to get out of bed and use commode
Like to avoid placing Jansen catheter
#Chronic thrombocytopenia
Trend CBC for now
Improving
Hypothyroidism
Cont synthroid
Anxiety/depression
Continue with Xanax
History of chronic inflammatory demyelinating polyneuropathy
Holding gabapentin and tizanidine for now
History of type 2 diabetes
History of cholecystitis status postcholecystectomy
History of partial hysterectomy
Marijuana user-smokes/vapes daily and takes edible once a while
Hx of RUE DVT -off Eliquis
DVT ppx-lovenox
DNR/DNI confirmed with spouse per pt.
PT/OT-recommended patient out of bed.
Anticipated Discharge: > 48 hours
Subjective/Interval History
-
Date of Service: April 26, 2024
states of persistent abd pain
taking po meds
Objective Data
-
Labs:
Laboratory Results
04/26/24
09:11
Sodium 135
Potassium 4.7
Chloride 106
Carbon Dioxide 22
BUN 45 H
Creatinine 1.4 H
Glucose 90
Calcium 9.0
Total Bilirubin 0.6
AST 33
ALT 16
Alkaline Phosphatase 74
Vital Signs:
Vital Signs
Temp Pulse Resp BP Pulse Ox
97.8 F 80 20 161/86 97
04/26/24 03:37 04/26/24 08:15 04/26/24 07:10 04/26/24 08:15 04/26/24 07:10
I&O
04/25/24 04/26/24 04/27/24
06:59 06:59 06:59
Intake Total 1860 / 1860 1560 / 1560
Output Total 250 / 250 361 / 361
Balance 1610 / 1610 1199 / 1199
Physical Exam
-
General: No Apparent Distress and Appears Chronically Ill
HEENT: Normocephalic, Atraumatic and Moist Mucous Membranes; Negative Oxygen
Respiratory: Clear to Auscultation
Cardiac: Regular Rhythm and S1/S2
Breast: Deferred by me
GI: Soft, Nondistended, Normal Bowel Sounds (decreased ) and Tender
Rectal: Deferred by Provider
Genito-urinary: Deferred by me
Musculoskeletal: No Edema
Neuro: Awake, Alert, Oriented, AO x 3 and No Motor Deficits
Psych: Calm
Data Reviewed
-
Total Time Spent with Patient (in minutes): 58
[2024-04-26] MEDS: APRESOLINE 10 MG IV (12:36)
[2024-04-26] MEDS: LOVENOX 40 MG SC (17:31)
[2024-04-26] MEDS: ZOFRAN 4 MG IV (21:36)
[2024-04-26] MEDS: XANAX 1 MG PO (21:37)
--- NOTE | 2024-04-26 22:36 | PTCARENOTE ---
# 22g IV access was placed in the Right hand. Right arm is swollen. IV access flushes without any issues and not sings of infiltrate. Pt refused Midline or an IV access in the feet. Will continue with treatment.
[2024-04-27] MEDS: DILAUDID 1 MG IV ×5 (02:52→22:11)
[2024-04-27 03:15] VITALS: BP 149/86
[2024-04-27] MEDS: DILAUDID 0.5 MG IV ×2 (05:51→10:40)
[2024-04-27] MEDS: SYNTHROID 50 MCG PO (05:51)
[2024-04-27] MEDS: ZOFRAN 4 MG IV ×3 (05:56→22:11)
[2024-04-27 07:10] VITALS: BP 188/94
[2024-04-27] MEDS: PROTONIX IV 40 MG IV ×2 (07:58→20:15)
[2024-04-27] MEDS: NSS (PRESERVATIVE FREE) 10 ML IV ×2 (07:58→20:15)
[2024-04-27] MEDS: SOLU-CORTEF 50 MG IV ×2 (07:58→20:15)
[2024-04-27] MEDS: APRESOLINE 25 MG PO ×3 (07:59→21:21)
[2024-04-27] MEDS: LOPRESSOR 25 MG PO ×2 (07:59→20:14)
[2024-04-27 09:16] VITALS: BP 171/93
[2024-04-27] MEDS: CELLCEPT 500 MG PO ×2 (10:40→21:20)
[2024-04-27] MEDS: APRESOLINE 10 MG IV (10:40)
[2024-04-27] MEDS: PROGRAF 1 MG PO ×2 (10:40→21:20)
--- NOTE | 2024-04-27 10:45 | PTCARENOTE ---
pt hypertensive this AM with 188/94 bp. pt given scheduled bp medications. follow up bp was 171/93. pt given prn pain medication and prn hydralazine per order to treat systolic >150. see MAR for proper documentation. pt agreeable to work with pt
after receiving pain med.
[2024-04-27 11:26] VITALS: BP 152/84; PULSE 65; O2SAT 97
--- NOTE | 2024-04-27 11:51 | W.PN.HOSP.TC ---
Today's Communication/Plan
-
await labs
oob
bp control
GI recs-Tube feed?
off IVF
Assessment / Plan
Assessment / Plan
#Abdominal pain likely secondary to duodenitis vs. enteritis vs. cannabinoid hyperemesis vs low likelihood of pancreatitis in the setting of mild alcohol usage with history of pancreatic transplant
#History of pancreatitis in the past
#Nausea and vomiting secondary to above
#Leukocytosis likely reactive Resolved
#Mild hypercalcemia likely secondary dehydration-improved
Cont with IVF
Pain control
MRI abdomen Severe diffuse atrophy of the [place] pancreas. Slightly distended main pancreatic duct and very subtle edema anterior and superior to the pancreatic head and proximal body. Findings suspicious for mild pancreatitis. Intrahepatic and
extrahepatic bile duct dilatation. No persistent or reproducible intraluminal filling defects are identified to indicate choledocholithiasis.
may require EGD
Antinausea meds
PPI
Does smokes marijuana vaping almost daily for pain at home. Also takes Edibles but not frequently.
Will advance to full's however patient without much p.o. intake. Encouraged to drink more. May need to place Dobbhoff and start tube feeding?
Await further GI input
#Mild acute duodenitis
#Pneumobilia-defer to GI.
PPI
GI on following
#Transaminitis likely secondary to pancreatitis/medications versus dehydration
Trend CMP for now
Resolved
#Primary hypertension likely elevated due to pain
Not on any meds. Monitor for now
PRN IV meds.
Increase hydralazine to 25 mg 3 times daily and start Lopressor
Monitor on telemetry
Blood pressure improving
#Renal transplant/Pancreatic transplant
#Acute kidney injury likely secondary to decreased p.o. intake
Continue Prograf and mycophenolate. Prednisone held and started on hydrocortisone 50 every 8, patient has been compliant with taking p.o. meds.
Tacrolimus level is pending. Dose Prograf increased 1mg
IVF. Trend Cr. Creat up trended to 1.4 today. Will defer further fluids to nephrology.
See update note form 04/23 (basically patient and spouse both refused to be transferred to a transplant eval and they understand patient needs to take her p.o. medication and refusing transfer to any tertiary care center). Patient and family
understand complications if patient refusing immunosuppressant medication.
Sees strike planning applications Dr. Zoraida Montemayor at [place]
No obstruction was noted on the recent MRI.
Tacrolimus level sent
Patient creatinine pending from today. IV fluid discontinued.
Appreciate nephro recs
# Intermittent urinary retention secondary to decreased mobility
Encourage patient to get out of bed and use commode
Like to avoid placing Jansen catheter
#Chronic thrombocytopenia
Trend CBC for now
Improving
Hypothyroidism
Cont synthroid
Anxiety/depression
Continue with Xanax
History of chronic inflammatory demyelinating polyneuropathy
Holding gabapentin and tizanidine for now
History of type 2 diabetes
History of cholecystitis status postcholecystectomy
History of partial hysterectomy
Marijuana user-smokes/vapes daily and takes edible once a while
Hx of RUE DVT -off Eliquis
DVT ppx-lovenox
DNR/DNI confirmed with spouse per pt.
PT/OT-recommended patient out of bed
d/w with spouse at bedside in detail. Stated they would not want to go back [facility] (per spouse, multiple hospitalization at [place]) even though primary strike planning applications is [facility]. Patient and spouse both understand [facility] not a transplant center and Prograf level is sent out and it takes time for results to come back. Seems to understand acuity of situation as patient with dual transplant and on multiple
immunosuppressant medication and not at transplant center.
Anticipated Discharge: > 48 hours
Subjective/Interval History
-
Date of Service: April 27, 2024
more awake this morning
drinking some tea
appetite remains poor
agreed to get OOB
Objective Data
-
Labs:
Laboratory Results
04/27/24
06:00
Sodium Pending
Potassium Pending
Chloride Pending
Carbon Dioxide Pending
BUN Pending
Creatinine Pending
Glucose Pending
Calcium Pending
Vital Signs:
Vital Signs
Temp Pulse Resp BP Pulse Ox
97.5 F 71 18 171/93 95
04/27/24 07:10 04/27/24 07:10 04/27/24 07:10 04/27/24 10:40 04/27/24 08:10
I&O
04/26/24 04/27/24 04/28/24
06:59 06:59 06:59
Intake Total 1560 / 1560 600 / 600
Output Total 361 / 361 100 / 100
Balance 1199 / 1199 500 / 500
Physical Exam
-
General: No Apparent Distress and Appears Chronically Ill
HEENT: Normocephalic, Atraumatic and Moist Mucous Membranes; Negative Oxygen
Respiratory: Clear to Auscultation
Cardiac: Regular Rhythm and S1/S2
Breast: Deferred by me
GI: Soft, Nondistended, Normal Bowel Sounds (decreased ) and Tender
Rectal: Deferred by Provider
Genito-urinary: Deferred by me
Musculoskeletal: No Edema
Neuro: Awake, Alert, Oriented, AO x 3 and No Motor Deficits
Psych: Calm
Data Reviewed
-
Total Time Spent with Patient (in minutes): 58
--- NOTE | 2024-04-27 12:33 | PTCARENOTE ---
day dove and phlebotomist lab assistant unable to obtain morning labs. made aware. RUE swollen, US ordered. after US IV team agreeable to place midline as long as it is appropriate. placed ok to draw from foot order. Labs obtained by IV nurse. continuing to
monitor pain of patient at this time
[2024-04-27 12:58] LABS: Blood Urea Nitrogen 51 mg/dl (7-17); Calcium 9.1 mg/dl (8.4-10.2); Carbon Dioxide 24 mmol/L (22-30); Chloride 105 mmol/L (98-107); Estimated Creatinine Clearance 30 ml/min; Glucose 107 mg/dl (70-99); Potassium 4.6 mmol/L (3.5-5.1); Sodium 133 mmol/L (135-145); eGFR 36.69
--- NOTE | 2024-04-27 14:02 | CM ---
Full liquids, poor PO intake, ? Dobbhoff placement. Discharge Plan of Care: Home with [facility], PT/OT services.
--- NOTE | 2024-04-27 14:21 | VATNOTE ---
Addendum entered by Lise Mohan RN 04/27/24 16:56:
ultrasound of the right arm shows superficial thrombus within the right basilic vein at the level of the antecubital fossa and just above the antecubital fossa. Primary RN and MD aware.
Original Note:
04/27 RN consulted for midline d/t poor veinous access. Patient is right arm only d/t left fistula. upon inspection of rt arm, noticed pitting edema. approved foot access for labs. US of right arm ordered to r/o clots. pending US to place midline.
--- NOTE | 2024-04-27 14:58 | W.PN.GI.CBS2 ---
Addendum entered and electronically signed by Jassi Morgan MD 04/27/24 18:11:
I saw and examined the patient.
The CASH PROCESSING SPECIALIST's note was reviewed and I agree with the note.
Patient still complaining of abdominal pain and is lying on the bed. Minimal oral intake
Refusing DHT or endoscopic procedure at this point
She also declines transfer to tertiary center
Advance diet as tolerated at this point
Pain management as per medical team
Continue PPI
Original Note:
Today's Communication / Plan
-
still with severe abdominal pain but more awake today
pt with minimal oral intakes
I discussed DHT with her and she declines as states she will try some Jello
again reviewed recommendation for patient to be seen at Tertiary center-- she still declines
renal to reach out to her doughnut machine operator helper to review -- some rise in creat
clear diet, advance as tolerated
Pain management as per medical team
Patient/family does not want transfer to tertiary facility
cont PPI
Advised to follow-up with transplant team/tertiary center
Avoid cannabis
Follow-up with GI Dr. Cintron as outpatient on discharge
Assessment / Plan
-
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 She improved with slow progression of diet and IVF. She now returns
today with recurrent abdominal pain with vomiting and coffee ground emesis. On admission cT completed with limitation without contrast new pneumobilia not seen on prior imaging. Also noted non specific edema upper abdomen in periduodenal regions
with acute duodenitis vs underlying ulcer. Labs notable for WBC 14,600- improved after discharge hbg 16, bili 1.5, AST 137, alt 54, alk phos 148 and lipase of 51. Pt is on chronic tacrolimus, mycophenolate. Her last endoscopy and
colonoscopy were performed within the past 1 to 2 years at [facility].
04/21/24CT Abd/pel Without Iv Or Oral
Limited examination without intravenous and oral contrast. There is new pneumobilia which may represent sphincter malfunction or be secondary to previous sphincterotomy, although the latter is not favored as no previous CT demonstrated pneumobilia.
Nonspecific edema in the upper abdomen which appears to be centered in the periduodenal region and favored to represent acute duodenitis. Underlying duodenal ulcer cannot be excluded.
Chronic/incidental findings as detailed in the body of the report.
04/23/24 MR abdomen
Severe diffuse atrophy of the [place] pancreas. Slightly distended main pancreatic duct and very subtle edema anterior and superior to the pancreatic head and proximal body. Findings suspicious for mild pancreatitis.
Intrahepatic and extrahepatic bile duct dilatation. No persistent or reproducible intraluminal filling defects are identified to indicate choledocholithiasis.
Incidental note is made of low insertion of a distended cystic duct remnant, which measures 5 mm in diameter.
Impression:
- Abdominal pain with concern for underlying pancreatitis in setting of transplanted pancreas with recurrent episode 4th episode in 2 years
- N/V- with Coffee ground emesis
-CT with pneumobilia
-CT with acute duodenitis
- pancreatic/renal transplant 20 years ago
-leukocytosis - improved
-thrombocytopenia
other med problems:
- hx covid
-CIPD
-GERD
-DM
- barron
-neuropathy
-hx DVT
Recommendations
still with severe abdominal pain but more awake today
pt with minimal oral intakes
I discussed DHT with her and she declines as states she will try some Jello
again reviewed recommendation for patient to be seen at Tertiary center-- she still declines
renal to reach out to her doughnut machine operator helper to review -- some rise in creat
clear diet, advance as tolerated
Pain management as per medical team
Patient/family does not want transfer to tertiary facility
cont PPI
Advised to follow-up with transplant team/tertiary center
Avoid cannabis
Follow-up with GI Dr. Cintron as outpatient on discharge
Subjective
Subjective
Date of Service: April 27, 2024
still with abdominal pain and eating minimal but more awake and conversant
Objective
Data Reviewed
Laboratory Data:
Laboratory Results
04/24/24 07:09
04/27/24 12:31
Laboratory Results
Phosphorus 3.7 mg/dl (2.5-4.5) 04/24/24 07:09
Magnesium 1.6 mg/dl (1.6-2.3) 04/24/24 07:09
Total Bilirubin 0.6 mg/dl (0.2-1.3) 04/26/24 09:11
AST 33 U/L (14-36) 04/26/24 09:11
ALT 16 U/L (0-35) 04/26/24 09:11
Alkaline Phosphatase 74 U/L (38-126) 04/26/24 09:11
Lipase 51 U/L (23-300) 04/21/24 05:14
Vital Signs and I&O:
Vital Signs
Temp Pulse Resp BP Pulse Ox
97.5 F 71 18 171/93 95
04/27/24 07:10 04/27/24 07:10 04/27/24 07:10 04/27/24 10:40 04/27/24 08:10
I&O
04/26/24 04/27/24 04/28/24
06:59 06:59 06:59
Intake Total 1560 / 1560 600 / 600
Output Total 361 / 361 100 / 100
Balance 1199 / 1199 500 / 500
Physical Exam
Physical Exam
HEENT: Anicteric and Moist mucous membranes
Cardiology: Normal Sinus Rhythm
Pulmonary: Clear
GI: Soft, Non Distended and Tender (with minimal palpation and limited exam )
Extremities: No Edema
Neuro: Non Focal
[2024-04-27 15:10] VITALS: BP 158/92
--- NOTE | 2024-04-27 15:17 | W.PN.NEPH.PH ---
Today's Communication / Plan
-
- trend Cr
Assessment/Plan
-
IMP:
Abdominal pain suspected pancreatitis in the setting of mild alcohol usage with history of pancreatic transplant
S/p kidney/pancreatic transplant-20yr ago at [facility] 2001, f/u [place] nephro Dr Montemayor
N/V- with Coffee ground emesis
-CT with pneumobilia
-CT with acute duodenitis
NOLVIA with CKD 3a
Mild hypercalcemia-resolved
Transaminitis
Intermittent urinary retention
Chronic thrombocytopenia
Hypothyroidism
GERD
Anxiety/depression
History of chronic inflammatory demyelinating polyneuropathy
History of type 2 diabetes
History of cholecystitis status postcholecystectomy
History of partial hysterectomy
Marijuana user-smokes/vapes daily and takes edible once a while
Hx of RUE DVT -off Eliquis
Nephrolithiasis
Plan:
A/w abd pain possible mild pancreatitis
cr up trend from 1 to 1.6, worsening again today
CT shows 1mm non obst stone of txp kidney
UA with bacteruria chronically, follow bladder scan and low threshold for martin
check Tac level-was 3.1 on 04/25, missed 2 doses HOMICIDE SQUAD LIEUTENANT and dose adjusted
cont steroids same may need wean in ext 1-2days once Tac level is at goal, level is pending
BPs are labile likely from pain and steroids
hydralazine and BB added per primary, can titrate up if needed
edema seems to have resolved but in the setting of rising Cr, discussed restarting fluids but patient is not amenable at this time.
echo in [place] noted normal EF and mild LVH
rediscussed tx to txp center on 04/27. attempted to reach Dr. Montemayor but she is on vacation. reiterated that she could be undergoing rejection vs. other processes and we do not have all the resources to adequately diagnose and treat her but she is
adamant that she will not go.
we will continue to monitor for now.
d/w pt
-
-
Date of Service: April 27, 2024
CC / HPI / ROS
-
Chief Complaint:
NOLVIA, h/o KP trasnplant
History of Present Illness:
cr worse at 1.6
BP labile pattern
no fever
UOP not well recorded. no PVR
Review of Systems:
still with sig amount of abd pain
nausea+
no sob or cp
edema is resolved
Labs
-
Labs:
WBC 7.1 10^3/uL (4.8-10.8) 04/24/24 07:09
RBC 4.21 10^6/uL (4.20-5.40) 04/24/24 07:09
Hgb 12.5 g/dL (12.0-16.0) 04/24/24 07:09
Hct 38.7 % (37.0-47.0) 04/24/24 07:09
Plt Count 127 10^3/uL (130-400) L 04/24/24 07:09
Sodium 133 mmol/L (135-145) L 04/27/24 12:31
Potassium 4.6 mmol/L (3.5-5.1) 04/27/24 12:31
Chloride 105 mmol/L (98-107) 04/27/24 12:31
Carbon Dioxide 24 mmol/L (22-30) 04/27/24 12:31
BUN 51 mg/dl (7-17) H 04/27/24 12:31
Creatinine 1.6 mg/dL (0.6-1.0) H 04/27/24 12:31
eGFR 36.69 04/27/24 12:31
Glucose 107 mg/dl (70-99) H 04/27/24 12:31
Calcium 9.1 mg/dl (8.4-10.2) 04/27/24 12:31
Phosphorus 3.7 mg/dl (2.5-4.5) 04/24/24 07:09
Wea-K-Zndsadwrxyu Pept 5040 pg/ml 04/25/24 08:07
Albumin 3.1 g/dl (3.5-5.0) L 04/26/24 09:11
Physical Exam
-
Vital Signs:
Vital Signs
Temp Pulse Resp BP Pulse Ox
97.5 F 71 18 171/93 95
04/27/24 07:10 04/27/24 07:10 04/27/24 07:10 04/27/24 10:40 04/27/24 08:10
Cardiovascular:: Regular rate and rhythm
Respiratory:: Bilateral: CTA
Lung Excursion:: Normal
Abdomen:: Soft and Tender (even light touch)
Extremity Edema:: None: Bilateral:
Martin Catheter: No
Other Findings::
UE edema and facial edema is resolved
--- NOTE | 2024-04-27 16:04 | VNURNOTE ---
Attempted to meet patient. She was off the floor. Will try again later. Referral placed in [facility].
--- NOTE | 2024-04-27 16:57 | PTCARENOTE ---
pt with occlusion in JORGE. IV team unable to place midline.
[2024-04-27] MEDS: LOVENOX 40 MG SC (17:17)
[2024-04-27] MEDS: XANAX 1 MG PO (21:20)
[2024-04-27 22:59] VITALS: BP 133/75
[2024-04-28] VITALS (8 sets, daily range): BP systolic 118–195; BP diastolic 59–110
[2024-04-28] MEDS: DILAUDID 1 MG IV ×4 (03:28→17:22)
[2024-04-28] MEDS: SYNTHROID 50 MCG PO (04:24)
[2024-04-28] MEDS: ZOFRAN 4 MG IV ×3 (04:24→17:01)
[2024-04-28] MEDS: LOPRESSOR 25 MG PO ×2 (08:03→20:28)
[2024-04-28] MEDS: PROTONIX IV 40 MG IV ×2 (08:04→20:27)
[2024-04-28] MEDS: NSS (PRESERVATIVE FREE) 10 ML IV ×2 (08:04→20:26)
[2024-04-28] MEDS: APRESOLINE 25 MG PO (08:04)
[2024-04-28] MEDS: SOLU-CORTEF 50 MG IV ×2 (08:04→20:21)
--- NOTE | 2024-04-28 09:04 | PTCARENOTE ---
pt with 195/110 BP this am. made aware, morning bp given and prn pain mediation also given for 9/10 pain. see MAR for documentation. bp rechecked, pressure 183/100. this nurse giving prn hydralazine. will recheck
[2024-04-28] MEDS: PROGRAF 1 MG PO ×2 (09:19→22:19)
[2024-04-28] MEDS: CELLCEPT 500 MG PO ×2 (09:19→22:19)
[2024-04-28] MEDS: APRESOLINE 10 MG IV (09:19)
--- NOTE | 2024-04-28 09:48 | VNURNOTE ---
Home Health Liaison met with patient at bedside to discuss [facility] nurse/therapy, visits, schedule and homebound status. Patient is agreeable and understands that visits at home will be 1-3 x per week to assess and teach medical management. [facility]
brochure provided with contact information. Patient is aware that [facility] will contact them for start of care within a few days after discharge from .
[facility] referral accepted in [facility].
[2024-04-28] MEDS: DILAUDID 0.5 MG IV ×3 (10:57→20:28)
--- NOTE | 2024-04-28 11:24 | W.PN.HOSP.TC ---
Today's Communication/Plan
-
refusing transfer
understand consequences
Await creatinine
Agreed for IV fluids
Increase hydralazine
Encourage to increase p.o. intake
Assessment / Plan
Assessment / Plan
#Abdominal pain likely secondary to duodenitis vs. enteritis vs. cannabinoid hyperemesis vs low likelihood of pancreatitis in the setting of mild alcohol usage with history of pancreatic transplant
#History of pancreatitis in the past
#Nausea and vomiting secondary to above
#Leukocytosis likely reactive Resolved
#Mild hypercalcemia likely secondary dehydration-improved
Agreed to get re-started on IVF. Will await repeat labs.
Pain control
MRI abdomen Severe diffuse atrophy of the [place] pancreas. Slightly distended main pancreatic duct and very subtle edema anterior and superior to the pancreatic head and proximal body. Findings suspicious for mild pancreatitis. Intrahepatic and
extrahepatic bile duct dilatation. No persistent or reproducible intraluminal filling defects are identified to indicate choledocholithiasis.
may require EGD
Antinausea meds
PPI
Does smokes marijuana vaping almost daily for pain at home. Also takes Edibles but not frequently.
Will advance to full's however patient without much p.o. intake. Encouraged to drink more. Recommended Dobbhoff for feeding tube. Patient refusing.
Await further GI input
#Renal transplant/Pancreatic transplant
#Acute kidney injury likely secondary to decreased p.o. intake
Continue Prograf and mycophenolate. Prednisone held and started on hydrocortisone 50 every 8, patient has been compliant with taking p.o. meds.
Tacrolimus level is pending. Dose Prograf increased 1mg
IVF. Trend Cr. Creat up trended to 1.4 today. Will defer further fluids to nephrology.
See update note form 04/23 (basically patient and spouse both refused to be transferred to a transplant eval and they understand patient needs to take her p.o. medication and refusing transfer to any tertiary care center). Patient and family
understand complications if patient refusing immunosuppressant medication.
Sees jailer/training officer Dr. Zoraida Montemayor at [place]
Once again reiterated the patient with elevated creatinine could be acute kidney process versus rejection and recommended transfer to a transplant center which patient refused once again. Understands consequences of rejection.
No obstruction was noted on the recent MRI.
Tacrolimus level sent
Creat was 1.6 on 04/27.
Patient creatinine pending from today. IV fluid discontinued.
Appreciate nephro recs
# Superficial right basilic vein thrombosis nonobstructive
-Elevate right upper extremity.
#Mild acute duodenitis
#Pneumobilia-defer to GI.
PPI
GI on following
#Transaminitis likely secondary to pancreatitis/medications versus dehydration
Trend CMP for now
Resolved
#Primary hypertension likely elevated due to pain
Not on any meds. Monitor for now
PRN IV meds.
Increase hydralazine to 50 mg 3 times daily and started Lopressor
Monitor on telemetry
Blood pressure improving
# Intermittent urinary retention secondary to decreased mobility
Encourage patient to get out of bed and use commode
Like to avoid placing Jansen catheter
#Chronic thrombocytopenia
Trend CBC for now
Improving
Hypothyroidism
Cont synthroid
Anxiety/depression
Continue with Xanax
History of chronic inflammatory demyelinating polyneuropathy
Holding gabapentin and tizanidine for now
History of type 2 diabetes
History of cholecystitis status postcholecystectomy
History of partial hysterectomy
Marijuana user-smokes/vapes daily and takes edible once a while
Hx of RUE DVT -off Eliquis
DVT ppx-lovenox
DNR/DNI confirmed with spouse per pt.
PT/OT-recommended patient out of bed
d/w with spouse at bedside in detail on 04/27 stated they would not want to go back [facility] (per spouse, multiple hospitalization at [facility]) even though primary jailer/training officer is located at [facility]. Does not want to go to any
[facility] hospitals. Patient and spouse both understand [facility] not a transplant center and Prograf level is sent out and it takes time for results to come back. Seems to understand acuity of situation as patient with dual transplant and on multiple
immunosuppressant medication and not at transplant center.
Anticipated Discharge: > 48 hours
Subjective/Interval History
-
Date of Service: April 28, 2024
ate small amount of jello
drinking water
Objective Data
-
Labs:
Laboratory Results
04/28/24 04/28/24
08:20 10:47
Sodium Cancelled Pending
Potassium Cancelled Pending
Chloride Cancelled Pending
Carbon Dioxide Cancelled Pending
BUN Cancelled Pending
Creatinine Cancelled Pending
Glucose Cancelled Pending
Calcium Cancelled Pending
Vital Signs:
Vital Signs
Temp Pulse Resp BP Pulse Ox
98.5 F 72 16 179/95 96
04/28/24 07:15 04/28/24 10:18 04/28/24 07:15 04/28/24 10:18 04/28/24 07:15
I&O
04/27/24 04/28/24 04/29/24
06:59 06:59 06:59
Intake Total 600 / 600 1440 / 1440
Output Total 100 / 100 400 / 400
Balance 500 / 500 1040 / 1040
Physical Exam
-
General: No Apparent Distress and Appears Chronically Ill
HEENT: Normocephalic, Atraumatic and Moist Mucous Membranes; Negative Oxygen
Respiratory: Clear to Auscultation
Cardiac: Regular Rhythm and S1/S2
Breast: Deferred by me
GI: Soft, Nondistended, Normal Bowel Sounds (decreased ) and Tender
Rectal: Deferred by Provider
Genito-urinary: Deferred by me
Musculoskeletal: Edema, Right Upper Extrem
Neuro: Awake, Alert, Oriented, AO x 3 and No Motor Deficits
Psych: Calm
Data Reviewed
-
Total Time Spent with Patient (in minutes): 58
[2024-04-28 11:29] LABS: Blood Urea Nitrogen 47 mg/dl (7-17); Carbon Dioxide 21 mmol/L (22-30); Chloride 105 mmol/L (98-107); Estimated Creatinine Clearance 32 ml/min; Glucose 107 mg/dl (70-99); Potassium 4.3 mmol/L (3.5-5.1); Sodium 131 mmol/L (135-145); eGFR 39.65
--- NOTE | 2024-04-28 13:52 | W.PN.NEPH.PH ---
Today's Communication / Plan
-
- continue to monitor
- await tac levels
Assessment/Plan
-
IMP:
Abdominal pain suspected pancreatitis in the setting of mild alcohol usage with history of pancreatic transplant
S/p kidney/pancreatic transplant-20yr ago at [facility] 2001, f/u [place] nephro Dr Montemayor
N/V- with Coffee ground emesis
-CT with pneumobilia
-CT with acute duodenitis
NOLVIA with CKD 3a
Mild hypercalcemia-resolved
Transaminitis
Intermittent urinary retention
Chronic thrombocytopenia
Hypothyroidism
GERD
Anxiety/depression
History of chronic inflammatory demyelinating polyneuropathy
History of type 2 diabetes
History of cholecystitis status postcholecystectomy
History of partial hysterectomy
Marijuana user-smokes/vapes daily and takes edible once a while
Hx of RUE DVT -off Eliquis
Nephrolithiasis
Plan:
A/w abd pain possible mild pancreatitis
cr up trend from 1 to 1.5, showing some stability
CT shows 1mm non obst stone of txp kidney
UA with bacteruria chronically, bladder scan with 0ml, following
check Tac level-was 3.1 on 04/25, missed 2 doses BIOMEDICAL INSTRUMENT TECHNICIAN and dose adjusted
cont steroids same may need wean in ext 1-2days once Tac level is at goal, level is pending
BPs are labile likely from pain and steroids
hydralazine and BB added per primary, can titrate up if needed
edema seems to have resolved but in the setting of rising Cr, discussed restarting fluids but patient is not amenable at this time.
echo in [place] noted normal EF and mild LVH
rediscussed tx to txp center on 04/27. attempted to reach Dr. Montemayor but she is on vacation. reiterated that she could be undergoing rejection vs. other processes and we do not have all the resources to adequately diagnose and treat her but she is
adamant that she will not go.
we will continue to monitor for now.
d/w pt
-
-
Date of Service: April 28, 2024
CC / HPI / ROS
-
Chief Complaint:
NOLVIA, h/o KP trasnplant
History of Present Illness:
cr worse at 1.5
BP labile pattern
no fever
UOP not well recorded. no PVR
Review of Systems:
still with sig amount of abd pain
nausea+
no sob or cp
edema is resolved
Labs
-
Labs:
WBC 7.1 10^3/uL (4.8-10.8) 04/24/24 07:09
RBC 4.21 10^6/uL (4.20-5.40) 04/24/24 07:09
Hgb 12.5 g/dL (12.0-16.0) 04/24/24 07:09
Hct 38.7 % (37.0-47.0) 04/24/24 07:09
Plt Count 127 10^3/uL (130-400) L 04/24/24 07:09
Sodium 131 mmol/L (135-145) L 04/28/24 10:47
Potassium 4.3 mmol/L (3.5-5.1) 04/28/24 10:47
Chloride 105 mmol/L (98-107) 04/28/24 10:47
Carbon Dioxide 21 mmol/L (22-30) L 04/28/24 10:47
BUN 47 mg/dl (7-17) H 04/28/24 10:47
Creatinine 1.5 mg/dL (0.6-1.0) H 04/28/24 10:47
eGFR 39.65 04/28/24 10:47
Glucose 107 mg/dl (70-99) H 04/28/24 10:47
Calcium 9.0 mg/dl (8.4-10.2) 04/28/24 10:47
Phosphorus 3.7 mg/dl (2.5-4.5) 04/24/24 07:09
Iuj-X-Jpuciuyhisy Pept 5040 pg/ml 04/25/24 08:07
Albumin 3.1 g/dl (3.5-5.0) L 04/26/24 09:11
Physical Exam
-
Vital Signs:
Vital Signs
Temp Pulse Resp BP Pulse Ox
98.5 F 73 16 163/95 96
04/28/24 07:15 04/28/24 11:29 04/28/24 07:15 04/28/24 11:29 04/28/24 07:15
Cardiovascular:: Regular rate and rhythm
Respiratory:: Bilateral: CTA
Lung Excursion:: Normal
Abdomen:: Soft and Tender (even light touch)
Extremity Edema:: None: Bilateral:
Jansen Catheter: No
Other Findings::
UE edema and facial edema is resolved
--- NOTE | 2024-04-28 14:21 | W.PN.GI.CBS2 ---
Today's Communication / Plan
-
Continue to encourage POs, maybe slight slow improvement
Advance diet as tolerated
Refusal for transfer to tertiary center noted
Assessment / Plan
-
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
ago at [facility], prior barron for cholecystitis , history of ERCP with admission in 2022 with pancreatitis with noted RLQ stranding and vomiting with concern for graft pancreatitis. She improved with slow progression of diet and IVF. She now returns
today with recurrent abdominal pain with vomiting and coffee ground emesis. On admission cT completed with limitation without contrast new pneumobilia not seen on prior imaging. Also noted non specific edema upper abdomen in periduodenal regions
with acute duodenitis vs underlying ulcer. Labs notable for WBC 14,600- improved after discharge hbg 16, bili 1.5, AST 137, alt 54, alk phos 148 and lipase of 51. Pt is on chronic tacrolimus, mycophenolate. Her last endoscopy and
colonoscopy were performed within the past 1 to 2 years at [facility].
04/21/24CT Abd/pel Without Iv Or Oral
Limited examination without intravenous and oral contrast. There is new pneumobilia which may represent sphincter malfunction or be secondary to previous sphincterotomy, although the latter is not favored as no previous CT demonstrated pneumobilia.
Nonspecific edema in the upper abdomen which appears to be centered in the periduodenal region and favored to represent acute duodenitis. Underlying duodenal ulcer cannot be excluded.
Chronic/incidental findings as detailed in the body of the report.
04/23/24 MR abdomen
Severe diffuse atrophy of the [place] pancreas. Slightly distended main pancreatic duct and very subtle edema anterior and superior to the pancreatic head and proximal body. Findings suspicious for mild pancreatitis.
Intrahepatic and extrahepatic bile duct dilatation. No persistent or reproducible intraluminal filling defects are identified to indicate choledocholithiasis.
Incidental note is made of low insertion of a distended cystic duct remnant, which measures 5 mm in diameter.
Impression:
- Abdominal pain with concern for underlying pancreatitis in setting of transplanted pancreas with recurrent episode 4th episode in 2 years
- N/V- with Coffee ground emesis
-CT with pneumobilia
-CT with acute duodenitis
- pancreatic/renal transplant 20 years ago
-leukocytosis - improved
-thrombocytopenia
other med problems:
- hx covid
-CIPD
-GERD
-DM
- barron
-neuropathy
-hx DVT
Subjective
Subjective
Date of Service: April 28, 2024
c/o abd pain. Appetite remains poor but trying to eat some full liquid tray
Objective
Data Reviewed
Laboratory Data:
Laboratory Results
04/24/24 07:09
04/28/24 10:47
Laboratory Results
Phosphorus 3.7 mg/dl (2.5-4.5) 04/24/24 07:09
Magnesium 1.6 mg/dl (1.6-2.3) 04/24/24 07:09
Total Bilirubin 0.6 mg/dl (0.2-1.3) 04/26/24 09:11
AST 33 U/L (14-36) 04/26/24 09:11
ALT 16 U/L (0-35) 04/26/24 09:11
Alkaline Phosphatase 74 U/L (38-126) 04/26/24 09:11
Lipase 51 U/L (23-300) 04/21/24 05:14
Vital Signs and I&O:
Vital Signs
Temp Pulse Resp BP Pulse Ox
98.5 F 73 16 163/95 96
04/28/24 07:15 04/28/24 11:29 04/28/24 07:15 04/28/24 11:29 04/28/24 07:15
I&O
04/27/24 04/28/24 04/29/24
06:59 06:59 06:59
Intake Total 600 / 600 1440 / 1440
Output Total 100 / 100 400 / 400
Balance 500 / 500 1040 / 1040
Physical Exam
Physical Exam
GI: Soft and Tender
[2024-04-28] MEDS: APRESOLINE 50 MG PO ×2 (15:36→22:19)
--- NOTE | 2024-04-28 16:24 | PTCARENOTE ---
at bedside and upset that pain is not being managed as much as he would like. this nurse educated the on the frequency and amounts of doses the patient is receiving. this nurse also educated the patient and partner on encouragement
of ambulation and movement to help. patient declined. and patient still stating they do not want to go to a [facility] like [facility]. wanted to know what we are doing about RUE swelling, this nurse educated on plan for
RUE. pt states having no pain in arm at this time. pt refused prn morphine within chart because it makes her hallucinate
--- NOTE | 2024-04-28 16:51 | CM ---
Discharge Plan of Care: Home with VN, PT/OT when medically stable. Continues to decline transfer to [place] or [place].
[2024-04-28] MEDS: LOVENOX 40 MG SC (17:01)
[2024-04-28] MEDS: XANAX 1 MG PO (22:21)
[2024-04-29] VITALS (11 sets, daily range): BP systolic 77–218; BP diastolic 76–106
[2024-04-29] MEDS: DILAUDID 1 MG IV ×4 (00:28→19:41)
--- NOTE | 2024-04-29 03:08 | DOWNTIME ---
There was a [employer] Intern Downtime on 04/29/2024 from 0100 to 04/29/2024 at 0252. Downtime documentation of patient's care, including medication administrations, has been reconciled in the electronic record per guidelines. Refer to the
patient's paper chart under the miscellaneous tab to see printed paper medication records and downtime forms.
[2024-04-29] MEDS: DILAUDID 0.5 MG IV ×3 (05:10→17:05)
[2024-04-29] MEDS: SYNTHROID 50 MCG PO (05:20)
[2024-04-29] MEDS: NSS (PRESERVATIVE FREE) 10 ML IV ×2 (08:20→19:54)
[2024-04-29] MEDS: APRESOLINE 50 MG PO (08:20)
[2024-04-29] MEDS: PROTONIX IV 40 MG IV ×2 (08:20→19:53)
[2024-04-29] MEDS: SOLU-CORTEF 50 MG IV ×2 (08:20→19:54)
[2024-04-29] MEDS: LOPRESSOR 25 MG PO ×2 (08:21→19:59)
--- NOTE | 2024-04-29 09:26 | PTCARENOTE ---
Addendum entered by Caro Ponce RN 04/29/24 12:08:
prn pain medication and prn zofran given for nausea. see MAR for proper charting.
Original Note:
pt with manual bp of 197/95. morning po meds given. 1mg dilaudid given for 10/10 abd pain. pt had emesis output of 30ml of bile after medication administration. pt rechecked for bp of 175/86, prn hydralazine to be given. see [facility] for proper
documentation. pt to get a central line this afternoon and at the moment has a 22 in the L foot.
[2024-04-29] MEDS: PROGRAF 1 MG PO (09:55)
[2024-04-29] MEDS: APRESOLINE 10 MG IV (09:55)
[2024-04-29] MEDS: CELLCEPT 500 MG PO (09:55)
--- NOTE | 2024-04-29 10:01 | W.PN.NEPH.PH ---
Today's Communication / Plan
-
prn IVF
tac level in am
Assessment/Plan
-
IMP:
Abdominal pain suspected pancreatitis in the setting of mild alcohol usage with history of pancreatic transplant
S/p kidney/pancreatic transplant-20yr ago at [facility] 2001, f/u [place] nephro Dr Montemayor
N/V- with Coffee ground emesis
-CT with pneumobilia
-CT with acute duodenitis
NOLVIA with CKD 3a
Mild hypercalcemia-resolved
Transaminitis
Intermittent urinary retention
Chronic thrombocytopenia
Hypothyroidism
GERD
Anxiety/depression
History of chronic inflammatory demyelinating polyneuropathy
History of type 2 diabetes
History of cholecystitis status postcholecystectomy
History of partial hysterectomy
Marijuana user-smokes/vapes daily and takes edible once a while
Hx of RUE DVT -off Eliquis
Nephrolithiasis
Plan:
A/w abd pain possible mild pancreatitis
cr up trend from 1 to 1.5, pending labs today
CT shows 1mm non obst stone of txp kidney
UA with bacteruria chronically, bladder scan with 0ml, following
check Tac level-was 3.1 on 04/25, missed 2 doses P[employer]MENT [employer] and dose adjusted
repeat 04/25 3.1, dose increased to home dose 1mg BID, level was drawn 04/27 at 1200pm is not true trough at 17.5
will repeat level in am
cont steroids same may need wean in ext 1-2days once Tac level is at goal
BPs are labile likely from pain and steroids
hydralazine and BB added per primary, can titrate up if needed
edema seems to have resolved but in the setting of rising Cr, discussed restarting fluids-pt agrees
echo in [place] noted normal EF and mild LVH
rediscussed tx to txp center today, pt cont to refuse and does not want to have further discussion.Dr Scott on 04/[address] Montemayor but she is on vacation.
we will continue to monitor for now.
d/w pt and nursing
-
-
Date of Service: April 29, 2024
CC / HPI / ROS
-
Chief Complaint:
NOLVIA, h/o KP trasnplant
History of Present Illness:
cr worse at 1.5, pending labs
BP labile pattern
no fever
no PVR
Review of Systems:
still with sig amount of abd pain
able to tolerate diet
no sob or cp
edema is resolved
difficult IV stick, plan to have central line
reports UOP less than normal
Labs
-
Labs:
WBC 7.1 10^3/uL (4.8-10.8) 04/24/24 07:09
RBC 4.21 10^6/uL (4.20-5.40) 04/24/24 07:09
Hgb 12.5 g/dL (12.0-16.0) 04/24/24 07:09
Hct 38.7 % (37.0-47.0) 04/24/24 07:09
Plt Count 127 10^3/uL (130-400) L 04/24/24 07:09
eGFR 39.65 04/28/24 10:47
Phosphorus 3.7 mg/dl (2.5-4.5) 04/24/24 07:09
Okh-D-Gckprcdbdpq Pept 5040 pg/ml 04/25/24 08:07
Albumin 3.1 g/dl (3.5-5.0) L 04/26/24 09:11
Physical Exam
-
Vital Signs:
Vital Signs
Temp Pulse Resp BP Pulse Ox
98.1 F 71 16 175/86 94
04/29/24 07:15 04/29/24 08:21 04/29/24 07:15 04/29/24 09:55 04/29/24 07:15
Cardiovascular:: Regular rate and rhythm
Respiratory:: Bilateral: CTA
Lung Excursion:: Normal
Abdomen:: Soft and Tender (upper abd, no graft tenderness in LLQ)
Extremity Edema:: None: Bilateral:
Jansen Catheter: No
--- NOTE | 2024-04-29 10:59 | W.PN.GI.CBS2 ---
Today's Communication / Plan
-
Diet advanced to low residue diet. Pt willing to try increase PO intake
Recommended transfer to tertiary center given her post renal/pancreatic transplant hx but pt still adamantly refusing
Recheck LFTs, lipase in am
Assessment / Plan
-
Summary: 58-year-old female with past medical history of chronic inflammatory demyelinating polyneuropathy, GERD, diabetes, pancreatitis, cholecystitis status postcholecystectomy, diabetic nephropathy, status post pancreatic/renal transplant over 20
years ago at [facility], prior barron for cholecystitis , history of ERCP with admission in 2022 with pancreatitis with noted RLQ stranding and vomiting with concern for graft pancreatitis. She improved with slow progression of diet and IVF. She now
returns today with recurrent abdominal pain with vomiting and coffee ground emesis. On admission CT completed with limitation without contrast new pneumobilia not seen on prior imaging. Also noted non specific edema upper abdomen in periduodenal
regions with acute duodenitis vs underlying ulcer. Labs notable for WBC 14,600- improved after discharge hbg 16, bili 1.5, AST 137, alt 54, alk phos 148 and lipase of 51. Pt is on chronic tacrolimus, mycophenolate. Her last endoscopy and
colonoscopy were performed within the past 1 to 2 years at [facility].
04/21/24CT Abd/pel Without Iv Or Oral
Limited examination without intravenous and oral contrast. There is new pneumobilia which may represent sphincter malfunction or be secondary to previous sphincterotomy, although the latter is not favored as no previous CT demonstrated pneumobilia.
Nonspecific edema in the upper abdomen which appears to be centered in the periduodenal region and favored to represent acute duodenitis. Underlying duodenal ulcer cannot be excluded.
Chronic/incidental findings as detailed in the body of the report.
04/23/24 MR abdomen
Severe diffuse atrophy of the [place] pancreas. Slightly distended main pancreatic duct and very subtle edema anterior and superior to the pancreatic head and proximal body. Findings suspicious for mild pancreatitis.
Intrahepatic and extrahepatic bile duct dilatation. No persistent or reproducible intraluminal filling defects are identified to indicate choledocholithiasis.
Incidental note is made of low insertion of a distended cystic duct remnant, which measures 5 mm in diameter.
Impression:
- Abdominal pain with concern for underlying pancreatitis in setting of transplanted pancreas with recurrent episode 4th episode in 2 years
- N/V- with Coffee ground emesis
-CT with pneumobilia
-CT with acute duodenitis
- pancreatic/renal transplant 20 years ago
-leukocytosis - improved
-thrombocytopenia
other med problems:
- hx covid
-CIPD
-GERD
-DM
- barron
-neuropathy
-hx DVT
Subjective
Subjective
Date of Service: April 29, 2024
[place] better earlier this am and asked for toast. Diet advanced but now pt c/o abd pain, stomach feels 'twisted'
Objective
Data Reviewed
Laboratory Data:
Laboratory Results
04/24/24 07:09
Laboratory Results
Phosphorus 3.7 mg/dl (2.5-4.5) 04/24/24 07:09
Magnesium 1.6 mg/dl (1.6-2.3) 04/24/24 07:09
Total Bilirubin 0.6 mg/dl (0.2-1.3) 04/26/24 09:11
AST 33 U/L (14-36) 04/26/24 09:11
ALT 16 U/L (0-35) 04/26/24 09:11
Alkaline Phosphatase 74 U/L (38-126) 04/26/24 09:11
Lipase 51 U/L (23-300) 04/21/24 05:14
Vital Signs and I&O:
Vital Signs
Temp Pulse Resp BP Pulse Ox
98.1 F 71 16 175/86 94
04/29/24 07:15 04/29/24 08:21 04/29/24 07:15 04/29/24 09:55 04/29/24 07:15
I&O
04/28/24 04/29/24 04/30/24
06:59 06:59 06:59
Intake Total 1440 / 1440 1440 / 1440
Output Total 400 / 400 300 / 300 30 / 30
Balance 1040 / 1040 1140 / 1140 -30 / -30
Physical Exam
Physical Exam
GI: Soft, Non Distended and Tender
[2024-04-29] MEDS: ZOFRAN 4 MG IV ×2 (11:58→19:58)
--- NOTE | 2024-04-29 14:43 | W.PN.HOSP.TC ---
Addendum entered and electronically signed by Leora Arzola MD 04/29/24 15:30:
called her and updated him in detail
Original Note:
Today's Communication/Plan
-
Discussed with the patient in detail
Assessment / Plan
Assessment / Plan
Physical exam:
General: Awake, alert and oriented x3, not in distress and holds appropriate conversation.
HEENT: No active discharge, ecchymosis or bruising, moist lips, tongue and mucous membrane.
Eyes: No discharge or red conjunctiva, no nystagmus, pupils are reactive and equal
Neck:Supple, no JVD no bruit no goiter.
Respiratory: Normal AP contour and diameter, normal chest wall movement, normal respiratory effort, no respiratory distress,
Lungs: Good air entry bilaterally, no wheezing or rhonchi, no rales or crackles
Heart: S1, S2 regular, normal rate, no added sound.
Gastrointestinal: Positive bowel sounds, soft, epigastric tenderness with no guarding or rigidity or organomegaly
Musculoskeletal: , no chest wall abnormality or tenderness. All joints and extremities have good range of motion, no muscle tenderness or any joint swelling or tenderness.
Extremities: No pitting edema, good peripheral pulses, good range of motion
Neurological: Awake, alert and oriented x3, moves extremities sclerae, no facial droop intact, speech clear and comprehensive, good muscle tone,
#Abdominal pain likely secondary to duodenitis vs. enteritis vs. cannabinoid hyperemesis vs pancreatitis in the setting of mild alcohol usage with history of pancreatic transplant
#History of pancreatitis in the past
#Nausea and vomiting secondary to above
#Leukocytosis likely reactive Resolved
#Mild hypercalcemia likely secondary dehydration-improved
Pain control, as needed Tylenol, Dilaudid as needed
MRI abdomen Severe diffuse atrophy of the [place] pancreas. Slightly distended main pancreatic duct and very subtle edema anterior and superior to the pancreatic head and proximal body. Findings suspicious for mild pancreatitis. Intrahepatic and
extrahepatic bile duct dilatation. No persistent or reproducible intraluminal filling defects are identified to indicate choledocholithiasis.
GI and nephrology in preparation
Antinausea meds
PPI
Does smokes marijuana vaping almost daily for pain at home. Also takes Edibles but not frequently.
Will advance to full's however patient without much p.o. intake. Encouraged to drink more. Recommended Dobbhoff for feeding tube. Patient refusing.
Await further GI input
#Renal transplant/Pancreatic transplant
#Acute kidney injury likely secondary to decreased p.o. intake
Continue Prograf and mycophenolate. Prednisone held and started on hydrocortisone 50 every 8, patient has been compliant with taking p.o. meds.
Tacrolimus level is pending. Collected on 04/27 while hydrocortisone 50 mg IV every 12 hours, per nephrology continue the same dose until we get the tacrolimus level, which is sent out...
Dose Prograf increased 1mg
See update note form 04/23 (basically patient and spouse both refused to be transferred to a transplant eval and they understand patient needs to take her p.o. medication and refusing transfer to any tertiary care center). Patient and family
understand complications if patient refusing immunosuppressant medication.
Sees route rider supervisor Dr. Zoraida Montemayor at [place]
Once again reiterated the patient with elevated creatinine could be acute kidney process versus rejection and recommended transfer to a transplant center which patient refused once again. Understands consequences of rejection.
No obstruction was noted on the recent MRI.
Creat was 1.6 on 04/27 then 1.5 yesterday today still pending.
Appreciate nephro input
# Superficial right basilic vein thrombosis nonobstructive
-Elevate right upper extremity.
#Mild acute duodenitis
#Pneumobilia-defer to GI.
PPI
GI on following
#Transaminitis likely secondary to pancreatitis/medications versus dehydration
Trend CMP for now
Resolved
#Primary hypertension likely elevated due to pain
Not on any meds. Monitor for now
PRN IV meds.
Increase hydralazine to 50 mg 3 times daily and Lopressor 25 twice daily, Pressure on the high side today, Increase hydralazine to 75
Monitor on telemetry
Blood pressure improving
# Intermittent urinary retention secondary to decreased mobility
Encourage patient to get out of bed and use commode
Like to avoid placing Jansen catheter
#Chronic thrombocytopenia
, Chronically low and stable
Hypothyroidism
Cont synthroid
Anxiety/depression
Continue with Xanax
History of chronic inflammatory demyelinating polyneuropathy
Holding gabapentin and tizanidine for now
History of type 2 diabetes
History of cholecystitis status postcholecystectomy
History of partial hysterectomy
Marijuana user-smokes/vapes daily and takes edible once a while
Hx of RUE DVT -off Eliquis
DVT ppx-lovenox
DNR/DNI confirmed with spouse per pt.
PT/OT-recommended patient out of bed
Anticipated Discharge: > 48 hours
Subjective/Interval History
-
Date of Service: April 29, 2024
Seen and examined, awake and alert, still complains of epigastric pain with nausea, pain is moderate in nature, localized, no relieving or aggravating factor, no bleeding event or change in stool or urine color. Admit poor appetite
March
Objective Data
-
Labs:
Laboratory Results
04/29/24
14:27
Sodium Pending
Potassium Pending
Chloride Pending
Carbon Dioxide Pending
BUN Pending
Creatinine Pending
Glucose Pending
Calcium Pending
Vital Signs:
Vital Signs
Temp Pulse Resp BP Pulse Ox
98.1 F 71 16 187/95 94
04/29/24 07:15 04/29/24 11:56 04/29/24 07:15 04/29/24 11:56 04/29/24 07:15
I&O
04/28/24 04/29/2424
07:59 07:59 07:59
Intake Total 1440 / 1440 1440 / 1440
Output Total 400 / 400 300 / 300
Balance 1040 / 1040 1140 / 1140 -30 / -30
Review of Systems
-
All other systems: Reviewed and negative
[2024-04-29 14:55] LABS: Blood Urea Nitrogen 35 mg/dl (7-17); Calcium 9.2 mg/dl (8.4-10.2); Carbon Dioxide 26 mmol/L (22-30); Chloride 103 mmol/L (98-107); Estimated Creatinine Clearance 32 ml/min; Glucose 107 mg/dl (70-99); Potassium 4.4 mmol/L (3.5-5.1); Sodium 132 mmol/L (135-145); eGFR 39.65
--- NOTE | 2024-04-29 15:27 | CM ---
Diet advanced to low residue diet. Continues to decline transferring to [facility] despite MD encouragement. For central line today. Discharge plan of care: TBD based on medical progression. Previous referral for HH VN, PT/OT.
--- NOTE | 2024-04-29 16:52 | IR.POSTOP ---
IRAD Post Procedure Note
-
Description of Findings:
Successful CVC placement via the right common femoral vein. Right IJ occluded. No visible EJ. Multiple collaterals in the lower neck, none of which led immediately to the central venous system.
[2024-04-29] MEDS: TYLENOL 650 MG PO (17:07)
[2024-04-29] MEDS: APRESOLINE 75 MG PO (17:09)
--- NOTE | 2024-04-29 17:14 | PTCARENOTE ---
pt returned from IR. placed a triple lumen in the R groin. 7 scottish. just gave prn pain meds, tylenol and the dilaudid. bp was 206/110. pt received her hydralazine 75mg, will follow up on BP.
[2024-04-29] MEDS: LOVENOX 40 MG SC (17:17)
[2024-04-29] MEDS: DILAUDID 2 MG IV (21:55)
[2024-04-29] MEDS: XANAX 1 MG PO (22:33)
[2024-04-29] MEDS: CELLCEPT PO (22:36)
[2024-04-29] MEDS: PROGRAF PO (22:36)
[2024-04-29] MEDS: APRESOLINE PO (22:36)
--- NOTE | 2024-04-29 22:36 | PTCARENOTE ---
Patient refused a few of her HS PO medications d/t nausea.
[2024-04-30] MEDS: DILAUDID 2 MG IV ×5 (03:02→21:32)
[2024-04-30] MEDS: ZOFRAN 4 MG IV ×3 (03:03→17:40)
[2024-04-30 05:23] LABS: ALT (SGPT) 11 U/L (0-35); AST (SGOT) 22 U/L (14-36); Albumin 2.7 g/dl (3.5-5.0); Alkaline Phosphatase 69 U/L (38-126); Direct Bilirubin 0.2 mg/dl (0.0-0.4); Lipase 171 U/L (23-300); Total Bilirubin 0.3 mg/dl (0.2-1.3); Total Protein 4.9 g/dl (6.3-8.2)
[2024-04-30] MEDS: SYNTHROID 50 MCG PO (06:13)
[2024-04-30 07:10] VITALS: BP 180/98
[2024-04-30] MEDS: SOLU-CORTEF 50 MG IV ×2 (07:48→21:32)
[2024-04-30] MEDS: PROTONIX IV 40 MG IV ×2 (07:48→20:04)
[2024-04-30] MEDS: APRESOLINE 75 MG PO ×3 (07:48→23:06)
[2024-04-30] MEDS: NSS (PRESERVATIVE FREE) 10 ML IV ×2 (07:48→20:02)
[2024-04-30] MEDS: LOPRESSOR 25 MG PO ×2 (07:49→20:02)
--- NOTE | 2024-04-30 08:50 | W.PN.GI.CBS2 ---
Today's Communication / Plan
-
Tolerating diet at this point
States that she will follow up with her OP director safety council who manages her post transplant meds
Told her to follow up with her OP employment attorney, Dr Leslie
Will sign off. Please call back if needed
Assessment / Plan
-
Summary: 58-year-old female with past medical history of chronic inflammatory demyelinating polyneuropathy, GERD, diabetes, pancreatitis, cholecystitis status postcholecystectomy, diabetic nephropathy, status post pancreatic/renal transplant over 20
years ago at [facility], prior barron for cholecystitis , history of ERCP with admission in 2022 with pancreatitis with noted RLQ stranding and vomiting with concern for graft pancreatitis. She improved with slow progression of diet and IVF. She now
returns today with recurrent abdominal pain with vomiting and coffee ground emesis. On admission CT completed with limitation without contrast new pneumobilia not seen on prior imaging. Also noted non specific edema upper abdomen in periduodenal
regions with acute duodenitis vs underlying ulcer. Labs notable for WBC 14,600- improved after discharge hbg 16, bili 1.5, AST 137, alt 54, alk phos 148 and lipase of 51. Pt is on chronic tacrolimus, mycophenolate. Her last endoscopy and
colonoscopy were performed within the past 1 to 2 years at [facility].
04/21/24CT Abd/pel Without Iv Or Oral
Limited examination without intravenous and oral contrast. There is new pneumobilia which may represent sphincter malfunction or be secondary to previous sphincterotomy, although the latter is not favored as no previous CT demonstrated pneumobilia.
Nonspecific edema in the upper abdomen which appears to be centered in the periduodenal region and favored to represent acute duodenitis. Underlying duodenal ulcer cannot be excluded.
Chronic/incidental findings as detailed in the body of the report.
04/23/24 MR abdomen
Severe diffuse atrophy of the [place] pancreas. Slightly distended main pancreatic duct and very subtle edema anterior and superior to the pancreatic head and proximal body. Findings suspicious for mild pancreatitis.
Intrahepatic and extrahepatic bile duct dilatation. No persistent or reproducible intraluminal filling defects are identified to indicate choledocholithiasis.
Incidental note is made of low insertion of a distended cystic duct remnant, which measures 5 mm in diameter.
Impression:
- Abdominal pain with concern for underlying pancreatitis in setting of transplanted pancreas with recurrent episode 4th episode in 2 years
- N/V- with Coffee ground emesis
-CT with pneumobilia
-CT with acute duodenitis
- pancreatic/renal transplant 20 years ago
-leukocytosis - improved
-thrombocytopenia
other med problems:
- hx covid
-CIPD
-GERD
-DM
- barron
-neuropathy
-hx DVT
Subjective
Subjective
Date of Service: April 30, 2024
Feeling better. Tolerated low residue diet, small amount
Objective
Data Reviewed
Laboratory Data:
Laboratory Results
04/24/24 07:09
04/29/24 14:27
Laboratory Results
Phosphorus 3.7 mg/dl (2.5-4.5) 04/24/24 07:09
Magnesium 1.6 mg/dl (1.6-2.3) 04/24/24 07:09
Total Bilirubin 0.3 mg/dl (0.2-1.3) 04/30/24 04:39
AST 22 U/L (14-36) 04/30/24 04:39
ALT 11 U/L (0-35) 04/30/24 04:39
Alkaline Phosphatase 69 U/L (38-126) 04/30/24 04:39
Lipase 171 U/L (23-300) 04/30/24 04:39
Vital Signs and I&O:
Vital Signs
Temp Pulse Resp BP Pulse Ox
98.1 F 88 16 153/76 94
04/29/24 23:24 04/29/24 23:24 04/29/24 23:24 04/29/24 23:24 04/29/24 23:24
I&O
04/29/24 04/30/24 05/01/24
06:59 06:59 06:59
Intake Total 1440 / 1440 1800 / 1800
Output Total 300 / 300 30 / 30
Balance 1140 / 1140 1770 / 1770
Physical Exam
Physical Exam
GI: Soft, Non Distended and Non Tender
[2024-04-30] MEDS: CELLCEPT 500 MG PO ×2 (09:13→23:07)
[2024-04-30] MEDS: PROGRAF 1 MG PO ×2 (09:13→23:08)
[2024-04-30] MEDS: APRESOLINE 10 MG IV ×2 (09:14→20:05)
[2024-04-30 10:06] VITALS: BP 182/90; PULSE 73; O2SAT 93
--- NOTE | 2024-04-30 12:36 | W.PN.HOSP.TC ---
Today's Communication/Plan
-
Discussed with the yesterday over the phone
Discussed with the patient
Discussed with the nephrology
Discussed with the nurse and primary care pediatrician
Assessment / Plan
Assessment / Plan
Physical exam: Sitting on the chair,
General: Awake, alert and oriented x3, not in distress and holds appropriate conversation.
HEENT: No active discharge, ecchymosis or bruising, moist lips, tongue and mucous membrane.
Eyes: No discharge or red conjunctiva, no nystagmus, pupils are reactive and equal
Neck:Supple, no JVD no bruit no goiter.
Respiratory: Normal AP contour and diameter, normal chest wall movement, normal respiratory effort, no respiratory distress,
Lungs: Good air entry bilaterally, no wheezing or rhonchi, no rales or crackles
Heart: S1, S2 regular, normal rate, no added sound.
Gastrointestinal: Positive bowel sounds, soft, epigastric tenderness with no guarding or rigidity or organomegaly
Musculoskeletal: , no chest wall abnormality or tenderness. All joints and extremities have good range of motion, no muscle tenderness or any joint swelling or tenderness.
Extremities: No pitting edema, good peripheral pulses, good range of motion
#Abdominal pain likely secondary to duodenitis vs. enteritis vs. cannabinoid hyperemesis vs pancreatitis in the setting of mild alcohol usage with history of pancreatic transplant
#History of pancreatitis in the past
#Nausea and vomiting secondary to above
#Leukocytosis likely reactive Resolved
#Mild hypercalcemia likely secondary dehydration-improved
Pain control, as needed Tylenol, Dilaudid increased to 2 mg every 3 hours as needed
MRI abdomen Severe diffuse atrophy of the [place] pancreas. Slightly distended main pancreatic duct and very subtle edema anterior and superior to the pancreatic head and proximal body. Findings suspicious for mild pancreatitis. Intrahepatic and
extrahepatic bile duct dilatation. No persistent or reproducible intraluminal filling defects are identified to indicate choledocholithiasis.
GI and nephrology input appreciated
Antinausea meds
PPI
Tolerates diet and p.o. intake.
Still in pain and require pain medication regularly
Poor vascular access:
Had a central venous catheter placed in right femoral area yesterday by IR
#Renal transplant/Pancreatic transplant
#Acute kidney injury likely secondary to decreased p.o. intake
Continue Prograf and mycophenolate. Prednisone held and started on hydrocortisone 50 every 8, patient has been compliant with taking p.o. meds.
Tacrolimus level is pending. Collected on 04/27 while hydrocortisone 50 mg IV every 12 hours, per nephrology continue the same dose until we get the tacrolimus level, which is sent out...
Dose Prograf increased 1mg p.o. every 12
Patient and spouse declining transfer to tertiary center including [place]
No obstruction was noted on the recent MRI.
Creat was 1.6 on 04/27 then 1.5 yesterday, today still pending.
Appreciate nephro input, discussed with nephrology in detail
# Superficial right basilic vein thrombosis nonobstructive
-Elevate right upper extremity.
#Mild acute duodenitis
#Pneumobilia-defer to GI.
PPI
GI on following
#Transaminitis likely secondary to pancreatitis/medications versus dehydration
Trend CMP for now
Resolved
#Primary hypertension likely elevated due to pain
Pressure has been elevated, likely secondary to pain,
Continue to monitor
PRN IV meds.
Increase hydralazine to 75 mg 3 times daily and Lopressor 25 twice daily,
# Intermittent urinary retention secondary to decreased mobility
Encourage patient to get out of bed and use commode
Like to avoid placing Jansen catheter
Improved
#Chronic thrombocytopenia
, Chronically low and stable
Hypothyroidism
Cont synthroid
Anxiety/depression
Continue with Xanax
History of chronic inflammatory demyelinating polyneuropathy
Holding gabapentin and tizanidine for now
History of type 2 diabetes
History of cholecystitis status postcholecystectomy
History of partial hysterectomy
Marijuana user-smokes/vapes daily and takes edible once a while
Hx of RUE DVT -off Eliquis
DVT ppx-lovenox
DNR/DNI confirmed with spouse per pt.
PT/OT-recommended patient out of bed
Anticipated Discharge: > 48 hours
Subjective/Interval History
-
Date of Service: April 30, 2024
Seen and examined, sitting on the chair, feeling nauseated, feels abdominal pain is coming back after has been had worked with PT, prior to this was better, pain is generalized with no relieving aggravating factor and has not been ambulating on, no
radiation. No fever or chill or cough or congestion.
Have right femoral area, central venous catheter placed yes
Objective Data
-
Labs:
Laboratory Results
04/30/24 04/30/24
04:39 09:02
Sodium Pending
Potassium Pending
Chloride Pending
Carbon Dioxide Pending
BUN Pending
Creatinine Pending
Glucose Pending
Calcium Pending
Total Bilirubin 0.3
AST 22
ALT 11
Alkaline Phosphatase 69
Vital Signs:
Vital Signs
Temp Pulse Resp BP Pulse Ox
98.4 F 96 16 180/98 92
04/30/24 07:10 04/30/24 07:10 04/30/24 07:10 04/30/24 07:10 04/30/24 07:10
I&O
04/29/24 04/30/24 05/01/24
07:59 07:59 07:59
Intake Total 1440 / 1440 1800 / 1800
Output Total 300 / 300 30 / 30
Balance 1140 / 1140 1770 / 1770
Review of Systems
-
All other systems: Reviewed and negative
--- NOTE | 2024-04-30 12:53 | CM ---
Addendum entered by Randy Dey 04/30/24 12:57:
IV/Meds.
Original Note:
Tolerating low residue diet. Discharge Plan of Care: [facility] with HH VN, PT/OT. Medical follow-up as outpatient.
--- NOTE | 2024-04-30 13:59 | W.PN.NEPH.PH ---
Addendum entered and electronically signed by Miladis Nichols MD 04/30/24 14:04:
note labs pending today still
Original Note:
Today's Communication / Plan
-
IVF challenge
Assessment/Plan
-
IMP:
Abdominal pain suspected pancreatitis in the setting of mild alcohol usage with history of pancreatic transplant
S/p kidney/pancreatic transplant-20yr ago at [facility] 2001, f/u [place] nephro Dr Montemayor
N/V- with Coffee ground emesis
-CT with pneumobilia
-CT with acute duodenitis
NOLVIA with CKD 3a
Mild hypercalcemia-resolved
Transaminitis
Intermittent urinary retention
Chronic thrombocytopenia
Hypothyroidism
GERD
Anxiety/depression
History of chronic inflammatory demyelinating polyneuropathy
History of type 2 diabetes
History of cholecystitis status postcholecystectomy
History of partial hysterectomy
Marijuana user-smokes/vapes daily and takes edible once a while
Hx of RUE DVT -off Eliquis
Nephrolithiasis
Plan:
A/w abd pain possible mild pancreatitis
cr 1.5, no change for few days, UOP not measured, challenge IVF today
CT shows 1mm non obst stone of txp kidney
UA with bacteruria chronically, bladder scan was neg
Tac level-was 3.1 on 04/25, missed 2 doses [employer] and dose adjusted
repeat 04/25 3.1, dose increased to home dose 1mg BID, level was drawn 04/27 at 1200pm is not true trough at 17.5, level pending this am
cont steroids same may need wean in 1-2days once Tac level is at goal
BPs are labile likely from pain and steroids, hydralaizne added per primary
hydralazine and BB added per primary, can titrate up if needed
echo in [place] noted normal EF and mild LVH
04/29 rediscussed tx to txp center today, pt cont to refuse and does not want to have further discussion.Dr Scott on 04/[address] Montemayor but she is on vacation.
Tried to reach on 04/29 but was unable
d/w pt and nursing
-
-
Date of Service: April 30, 2024
CC / HPI / ROS
-
Chief Complaint:
NOLVIA, h/o KP trasnplant
History of Present Illness:
cr worse at 1.5, pending labs
BP labile pattern
no fever
no PVR
Review of Systems:
still with sig amount of abd pain
able to tolerate diet but with nausea too
no sob or cp
edema is resolved
difficult IV stick, now with femoral line
reports UOP less than normal
Labs
-
Labs:
WBC 7.1 10^3/uL (4.8-10.8) 04/24/24 07:09
RBC 4.21 10^6/uL (4.20-5.40) 04/24/24 07:09
Hgb 12.5 g/dL (12.0-16.0) 04/24/24 07:09
Hct 38.7 % (37.0-47.0) 04/24/24 07:09
Plt Count 127 10^3/uL (130-400) L 04/24/24 07:09
eGFR 39.65 04/29/24 14:27
Phosphorus 3.7 mg/dl (2.5-4.5) 04/24/24 07:09
Cop-W-Iwmqgwofdpe Pept 5040 pg/ml 04/25/24 08:07
Albumin 2.7 g/dl (3.5-5.0) L 04/30/24 04:39
Physical Exam
-
Vital Signs:
Vital Signs
Temp Pulse Resp BP Pulse Ox
98.4 F 96 16 180/98 92
04/30/24 07:10 04/30/24 07:10 04/30/24 07:10 04/30/24 07:10 04/30/24 07:10
Cardiovascular:: Regular rate and rhythm
Respiratory:: Bilateral: CTA
Lung Excursion:: Normal
Abdomen:: Soft and Tender
Extremity Edema:: None: Bilateral:
Jansen Catheter: No
[2024-04-30 15:10] VITALS: BP 208/109
--- NOTE | 2024-04-30 15:45 | PN.CDI ---
CDI
- -
CDI:
Physician Documentation Request
Admit Date: 04/21/24 09:16
Dear Doctor Ness,
Clinical Indicators:
Patient admitted with recurrent abdominal pain with vomiting.
04/22 MRI, 'Slightly distended main pancreatic duct and very subtle edema anterior and superior to the pancreatic head and proximal body. Findings suspicious for mild pancreatitis.'
04/28 PN, 'Abdominal pain likely secondary to duodenitis vs. enteritis vs. cannabinoid hyperemesis vs low likelihood of pancreatitis'
04/30 GI PN, 'Abdominal pain with concern for underlying pancreatitis in setting of transplanted pancreas with recurrent episode 4th episode in 2 years'
Due to potentially conflicting documentation, please clarify the following:
Pancreatitis was present on admission and is still being monitored, evaluated or treated
Pancreatitis was ruled out
Pancreatitis is still a likely, suspected, probable diagnosis
Other, please specify
Use of terms such as suspected, likely, concern for, or probable (associated with a specific diagnosis that is being evaluated, monitored, or treated as if it exists) are acceptable and can be coded in the inpatient setting, when documented at the
time of discharge.
Thank you,
MARSHA Perez RN
CDI Specialist
available via tiger text
Please use your independent medical judgment in providing your response.
[2024-04-30 16:26] LABS: Blood Urea Nitrogen 29 mg/dl (7-17); Calcium 9.2 mg/dl (8.4-10.2); Carbon Dioxide 29 mmol/L (22-30); Chloride 101 mmol/L (98-107); Estimated Creatinine Clearance 34 ml/min; Glucose 124 mg/dl (70-99); Potassium 4.6 mmol/L (3.5-5.1); Sodium 135 mmol/L (135-145); eGFR 43.07
[2024-04-30] MEDS: NSS 500 IV (17:26)
[2024-04-30] MEDS: LOVENOX 40 MG SC (17:40)
[2024-04-30 19:51] VITALS: BP 199/98
[2024-04-30] MEDS: COLACE 100 MG PO (20:02)
[2024-04-30] MEDS: SENOKOT 17.2 MG PO (20:04)
[2024-04-30 23:03] VITALS: BP 227/107
[2024-04-30] MEDS: TUMS 1 TABLET PO (23:06)
[2024-04-30] MEDS: XANAX 1 MG PO (23:08)
[2024-05-01] VITALS (7 sets, daily range): BP systolic 154–222; BP diastolic 75–105
--- NOTE | 2024-05-01 00:06 | PTCARENOTE ---
Addendum entered by Maye Donnelly RN 05/01/24 01:14:
PRN zofran offered - pt declined.
Original Note:
Pt vomited some of HS meds, unable to decipher which ones. Placed back on telemetry to receive PRN labetolol. Medicated w/PRN dilaudid, pt verbalizes minimal relief. Complained of heartburn earlier, WEB ART DIRECTOR covering house contacted, electronic order
received for 1x dose Tums (refer to NOV) Plan of care ongoing.
[2024-05-01] MEDS: TRANDATE 5 MG IV (00:12)
[2024-05-01] MEDS: APRESOLINE 10 MG IV ×2 (03:26→12:25)
[2024-05-01] MEDS: DILAUDID 2 MG IV ×7 (03:30→23:17)
--- NOTE | 2024-05-01 04:17 | PTCARENOTE ---
Pt reports tongue discomfort/burning. White film present all over tongue. [employer] MANAGER covering house contacted - electronic orders received (refer to NOV).
[2024-05-01] MEDS: SYNTHROID 50 MCG PO (06:11)
[2024-05-01 06:46] LABS: Blood Urea Nitrogen 24 mg/dl (7-17); Calcium 8.9 mg/dl (8.4-10.2); Carbon Dioxide 30 mmol/L (22-30); Chloride 101 mmol/L (98-107); Estimated Creatinine Clearance 36 ml/min; Glucose 115 mg/dl (70-99); Potassium 4.3 mmol/L (3.5-5.1); Sodium 134 mmol/L (135-145); eGFR 47.08
[2024-05-01] MEDS: APRESOLINE 75 MG PO ×2 (08:24→23:12)
[2024-05-01] MEDS: MYCOSTATIN ORAL SUSPENSION 5 ML PO ×4 (08:25→21:39)
[2024-05-01] MEDS: LOPRESSOR 25 MG PO ×2 (08:25→20:12)
[2024-05-01] MEDS: NSS (PRESERVATIVE FREE) 10 ML IV ×2 (08:27→20:14)
[2024-05-01] MEDS: PROTONIX IV 40 MG IV ×2 (08:28→20:12)
[2024-05-01] MEDS: ZOFRAN 4 MG IV ×2 (08:43→17:11)
[2024-05-01] MEDS: SOLU-CORTEF 50 MG IV ×2 (08:43→20:20)
[2024-05-01] MEDS: CELLCEPT 500 MG PO ×2 (10:45→21:38)
[2024-05-01] MEDS: PROGRAF 1 MG PO ×2 (10:45→21:38)
--- NOTE | 2024-05-01 12:08 | W.PN.HOSP.TC ---
Addendum entered and electronically signed by Leora Arzola MD 05/01/24 15:59:
Other impression: Acute pancreatitis, present on admission still being monitored and evaluated
Addendum entered and electronically signed by Leora Arzola MD 05/01/24 14:53:
Been notified by the nurse that the patient's aspirin and the patient wanted talk to me, I went over and patient told me she wanted to be hospice and does not want to improve this pain anymore, which made her upset and stormed out of the
room.
Patient getting her Dilaudid every 4 hours as needed.
Which helped the pain but did not last the 4-hour,
Also did not move her bowels in the last few days, passes gas and there is no nausea or vomiting currently.
Patient awake, alert and oriented x 3 and holds appropriate conversation.
Hospice and comfort explained to the patient in detail and she expressed understanding and she was aware, she says she does not want to deal with this pain which has been dealing with this for 12-year she went to be like go peacefully and
comfortable.
Denies suicidal ideation or planning.
Nurse was present and there was confirmed by the patient to the nurse.
Has been was emotional and left the room.
I do long conversation again with the patient and still she wanted to go with her decision regarding made hospice and comfort and let him go peacefully.
For now we will increase her Dilaudid every 2 hours.
Offered to get a CT abdominal and pelvis as she still did not move her bowel to rule out obstruction, but patient declined does not want any further workup but she is okay to get her Dulcolax suppository.
And Ativan 0.5 mg every 6 hours as needed
Perative care consult
Original Note:
Today's Communication/Plan
-
Discussed with on daily basis over the phone next and expressed understanding
All discussed with the patient and expressed understanding
Discussed with the nurse
Assessment / Plan
Assessment / Plan
Physical exam: Sitting on the chair,
General: Awake, alert and oriented x3, not in distress and holds appropriate conversation.
HEENT: No active discharge, ecchymosis or bruising, moist lips, tongue and mucous membrane.
Eyes: No discharge or red conjunctiva, no nystagmus, pupils are reactive and equal
Neck:Supple, no JVD no bruit no goiter.
Respiratory: Normal AP contour and diameter, normal chest wall movement, normal respiratory effort, no respiratory distress,
Lungs: Good air entry bilaterally, no wheezing or rhonchi, no rales or crackles
Heart: S1, S2 regular, normal rate, systolic murmur 1-2/6 appreciated
Gastrointestinal: Positive bowel sounds, soft, epigastric tenderness with no guarding or rigidity or organomegaly
Musculoskeletal: , no chest wall abnormality or tenderness. All joints and extremities have good range of motion, no muscle tenderness or any joint swelling or tenderness.
#Abdominal pain likely secondary to duodenitis vs. enteritis vs. cannabinoid hyperemesis vs pancreatitis in the setting of mild alcohol usage with history of pancreatic transplant
#History of pancreatitis in the past
#Nausea and vomiting secondary to above
#Leukocytosis likely reactive Resolved
#Mild hypercalcemia likely secondary dehydration-improved
Pain control, as needed Tylenol, Dilaudid increased to 2 mg every 3 hours as needed, still getting Dilaudid every 3 hours
MRI abdomen Severe diffuse atrophy of the [place] pancreas. Slightly distended main pancreatic duct and very subtle edema anterior and superior to the pancreatic head and proximal body. Findings suspicious for mild pancreatitis. Intrahepatic and
extrahepatic bile duct dilatation. No persistent or reproducible intraluminal filling defects are identified to indicate choledocholithiasis.
GI and nephrology input appreciated
Antinausea meds as needed
PPI
Tolerates diet and p.o. intake.
Still in pain and require pain medication regularly
Poor vascular access:
Had a central venous catheter placed in right femoral area by IR on Saturday
Constipation: Likely multifactorial including decreased mobility and pain medication
Start on senna and Colace will increase to Colace 200 twice daily as well as discussed with the patient will try to be less aggressive because of abdominal pain if not moving her bowel then may consider enema suppository, doubted bowel obstruction
#Renal transplant/Pancreatic transplant
#Acute kidney injury likely secondary to decreased p.o. intake
Continue Prograf and mycophenolate. Prednisone held and started on hydrocortisone 50 every 8, patient has been compliant with taking p.o. meds.
Tacrolimus level is pending as recollected again today,. Collected on 04/27 while hydrocortisone 50 mg IV every 12 hours, per nephrology continue the same dose until we get the tacrolimus level, which is sent out... Look like the sample of 819.
Nephrology level was 17.5 and nephrology think this is not accurate therefore repeated today
Dose Prograf increased 1mg p.o. every 12
Patient and spouse declining transfer to tertiary center including [facility]
Creat was 1.6 on 04/27 then 1.5 yesterday, today 1.3
Appreciate nephro input, discussed with nephrology in detail regular
# Superficial right basilic vein thrombosis nonobstructive
-Elevate right upper extremity.
#Mild acute duodenitis
#Pneumobilia-defer to GI.
PPI
GI on board
#Transaminitis likely secondary to pancreatitis/medications versus dehydration
Trend CMP for now
Resolved
#Primary hypertension likely elevated due to pain
Pressure has been elevated, likely secondary to pain,
Continue to monitor
PRN IV meds.
Increase hydralazine to 75 mg 3 times daily and Lopressor 25 twice daily,
# Intermittent urinary retention secondary to decreased mobility
Encourage patient to get out of bed and use commode
Like to avoid placing Jansen catheter
Improved
#Chronic thrombocytopenia
, Chronically low and stable
Hypothyroidism
Cont synthroid
Anxiety/depression
Continue with Xanax
History of chronic inflammatory demyelinating polyneuropathy
Holding gabapentin and tizanidine for now
History of type 2 diabetes
History of cholecystitis status postcholecystectomy
History of partial hysterectomy
Marijuana user-smokes/vapes daily and takes edible once a while
Hx of RUE DVT -off Eliquis
DVT ppx-lovenox
DNR/DNI confirmed with spouse per pt.
PT/OT-recommended patient out of bed
Still requiring IV Dilaudid 2 mg every 3 hours, as mentioned was given offered to be transferred to [facility]. Time by different physician patient and her declined they want to stay here.
Her condition discussed with the in detail on daily
Anticipated Discharge: > 48 hours
Subjective/Interval History
-
Date of Service: May 01, 2024
Seen and examined, awake and alert, laying in bed looks comfortable but still complaining of hip pain is 10 out of the 10 when the effect of the Dilaudid goes away. Very mild nausea today better than before, passes gas but did not move her bowels
yet, denies fever or chill or any cough or congestion or shortness of breath.
Objective Data
-
Labs:
Laboratory Results
05/01/24
06:12
Sodium 134 L
Potassium 4.3
Chloride 101
Carbon Dioxide 30
BUN 24 H
Creatinine 1.3 H
Glucose 115 H
Calcium 8.9
Vital Signs:
Vital Signs
Temp Pulse Resp BP Pulse Ox
98.2 F 78 16 159/86 97
05/01/24 11:10 05/01/24 11:10 05/01/24 11:10 05/01/24 11:10 05/01/24 11:10
I&O
04/30/24 05/01/24 05/02/24
07:59 07:59 07:59
Intake Total 1800 / 1800 1920 / 1920
Output Total 30 / 30 200 / 200
Balance 1770 / 1770 1720 / 1720
Review of Systems
-
All other systems: Reviewed and negative
--- NOTE | 2024-05-01 13:11 | W.PN.NEPH.PH ---
Today's Communication / Plan
-
- Cr improving
- hold off on further fluids and assess response
Assessment/Plan
-
IMP:
Abdominal pain suspected pancreatitis in the setting of mild alcohol usage with history of pancreatic transplant
S/p kidney/pancreatic transplant-20yr ago at [facility] 2001, f/u [place] neph[facility] Dr Montemayor
N/V- with Coffee ground emesis
-CT with pneumobilia
-CT with acute duodenitis
NOLVIA with CKD 3a
Mild hypercalcemia-resolved
Transaminitis
Intermittent urinary retention
Chronic thrombocytopenia
Hypothyroidism
GERD
Anxiety/depression
History of chronic inflammatory demyelinating polyneuropathy
History of type 2 diabetes
History of cholecystitis status postcholecystectomy
History of partial hysterectomy
Marijuana user-smokes/vapes daily and takes edible once a while
Hx of RUE DVT -off Eliquis
Nephrolithiasis
Plan:
A/w abd pain possible mild pancreatitis
cr 1.3, slight improvement with IVF. UOP not measured.
CT shows 1mm non obst stone of txp kidney
UA with bacteruria chronically, bladder scan was neg
Tac level-was 3.1 on 04/25, missed 2 doses [employer] and dose adjusted
repeat 04/25 3.1, dose increased to home dose 1mg BID, level was drawn 04/27 at 1200pm is not true trough at 17.5, level pending from this morning
cont steroids same may need wean in 1-2days once Tac level is at goal
BPs are labile likely from pain and steroids, hydralaizne added per primary
hydralazine and BB added per primary, can titrate up if needed
echo in [place] noted normal EF and mild LVH
04/29 rediscussed tx to txp center today, pt cont to refuse and does not want to have further discussion.Dr Scott on 04/[address] Montemayor but she is on vacation.
Tried to reach on 04/29 but was unable
d/w pt and nursing
-
-
Date of Service: May 01, 2024
CC / HPI / ROS
-
Chief Complaint:
NOLVIA, h/o KP trasnplant
History of Present Illness:
cr slightly better at 1.3 after fluids
BP labile pattern
no fever
no PVR
Review of Systems:
still with sig amount of abd pain
able to tolerate diet but with nausea too
no sob or cp
edema is resolved
difficult IV stick, now with femoral line
reports UOP less than normal
Labs
-
Labs:
WBC 7.1 10^3/uL (4.8-10.8) 04/24/24 07:09
RBC 4.21 10^6/uL (4.20-5.40) 04/24/24 07:09
Hgb 12.5 g/dL (12.0-16.0) 04/24/24 07:09
Hct 38.7 % (37.0-47.0) 04/24/24 07:09
Plt Count 127 10^3/uL (130-400) L 04/24/24 07:09
Sodium 134 mmol/L (135-145) L 05/01/24 06:12
Potassium 4.3 mmol/L (3.5-5.1) 05/01/24 06:12
Chloride 101 mmol/L (98-107) 05/01/24 06:12
Carbon Dioxide 30 mmol/L (22-30) 05/01/24 06:12
BUN 24 mg/dl (7-17) H 05/01/24 06:12
Creatinine 1.3 mg/dL (0.6-1.0) H 05/01/24 06:12
eGFR 47.08 05/01/24 06:12
Glucose 115 mg/dl (70-99) H 05/01/24 06:12
Calcium 8.9 mg/dl (8.4-10.2) 05/01/24 06:12
Phosphorus 3.7 mg/dl (2.5-4.5) 04/24/24 07:09
Syl-L-Voizljlgvte Pept 5040 pg/ml 04/25/24 08:07
Albumin 2.7 g/dl (3.5-5.0) L 04/30/24 04:39
Physical Exam
-
Vital Signs:
Vital Signs
Temp Pulse Resp BP Pulse Ox
98.2 F 87 16 159/86 97
05/01/24 11:10 05/01/24 12:25 05/01/24 11:10 05/01/24 12:25 05/01/24 11:10
Cardiovascular:: Regular rate and rhythm
Respiratory:: Bilateral: CTA
Lung Excursion:: Normal
Abdomen:: Soft and Tender
Extremity Edema:: None: Bilateral:
Jansen Catheter: No
[2024-05-01] MEDS: DULCOLAX 10 MG RECTAL (15:14)
--- NOTE | 2024-05-01 15:52 | PTCARENOTE ---
Patient retaining urine of over 400 ml and states she hasnt voided since yesterday. TT sent to Dr Arzola, order placed for martin cath for urinary retention. VA ducolox given for constipation as ordered.
--- NOTE | 2024-05-01 16:08 | CM ---
patient on comfort measures,low residue diet,cont iv dilaudid every 2 hrs for pain,having urinary retention-martin placed.being followed by dhbn.patient may want to go on comfort measures/hospice. became emotional and left room after patient
mentioned comfort care.plan:to be determined
[2024-05-01] MEDS: APRESOLINE PO (16:12)
[2024-05-01] MEDS: FLUSH (NSS) 2 FLUSH IV ×3 (17:07→23:18)
[2024-05-01] MEDS: LOVENOX SC (17:14)
[2024-05-01] MEDS: MORPHINE SULFATE 1 MG IV (18:23)
[2024-05-01] MEDS: ATIVAN 0.5 MG IV (18:24)
[2024-05-01] MEDS: NSS (PRESERVATIVE FREE) 0.25 ML IV (18:24)
[2024-05-01] MEDS: COLACE 100 MG PO (20:12)
[2024-05-01] MEDS: SENOKOT 17.2 MG PO (20:12)
[2024-05-01] MEDS: XANAX 1 MG PO (21:38)
[2024-05-02] MEDS: SYNTHROID 50 MCG PO (05:00)
[2024-05-02] MEDS: ATIVAN 0.5 MG IV (05:17)
[2024-05-02] MEDS: NSS (PRESERVATIVE FREE) 0.25 ML IV (05:18)
[2024-05-02] MEDS: DILAUDID 2 MG IV ×2 (05:19→10:28)
[2024-05-02 05:52] LABS: Blood Urea Nitrogen 18 mg/dl (7-17); Calcium 8.9 mg/dl (8.4-10.2); Carbon Dioxide 29 mmol/L (22-30); Chloride 103 mmol/L (98-107); Estimated Creatinine Clearance 36 ml/min; Glucose 114 mg/dl (70-99); Potassium 4.1 mmol/L (3.5-5.1); Sodium 135 mmol/L (135-145); eGFR 47.08
[2024-05-02 05:53] VITALS: BMI 20.2
[2024-05-02 07:15] VITALS: BP 136/87
--- NOTE | 2024-05-02 08:25 | PTCARENOTE ---
Spoke with patient this morning about her goals of care and what I could do for her this AM. Patient requesting only, when needed, Ativan and Dilaudid. However, she does not want to take any of her routinely scheduled medications as she feels this
is 'futile'. Patient spoke of goal of comfort and brief discussion of hospice occurred. Provided warm blanket and expressed availability for whatever this RN may be able to do for her.
[2024-05-02] MEDS: APRESOLINE PO (08:28)
[2024-05-02] MEDS: NSS (PRESERVATIVE FREE) IV ×2 (08:28→19:47)
[2024-05-02] MEDS: LOPRESSOR PO (08:28)
[2024-05-02] MEDS: COLACE PO ×2 (08:28→19:47)
[2024-05-02] MEDS: MYCOSTATIN ORAL SUSPENSION PO ×2 (08:28→12:35)
[2024-05-02] MEDS: SOLU-CORTEF IV (08:29)
[2024-05-02] MEDS: PROTONIX IV IV ×2 (08:29→19:47)
[2024-05-02] MEDS: PROGRAF PO (09:07)
[2024-05-02] MEDS: CELLCEPT PO (09:07)
--- NOTE | 2024-05-02 11:12 | CM ---
Reviewed the chart notes. Consult received for hospice. Referral sent for Hospice. Patient receiving IV pain medications. CM continues to be available to patient/family and is monitoring medical plan for needs at discharge.
Plan: Hospice consult pending.
--- NOTE | 2024-05-02 12:25 | W.PN.NEPH.PH ---
Today's Communication / Plan
-
sign off
Assessment/Plan
-
IMP:
Abdominal pain suspected pancreatitis in the setting of mild alcohol usage with history of pancreatic transplant
S/p kidney/pancreatic transplant-20yr ago at [facility] 2001, f/u [place] [facility] Montemay[facility]
N/V- with Coffee ground emesis
-CT with pneumobilia
-CT with acute duodenitis
NOLVIA with CKD 3a
Mild hypercalcemia-resolved
Transaminitis
Intermittent urinary retention
Chronic thrombocytopenia
Hypothyroidism
GERD
Anxiety/depression
History of chronic inflammatory demyelinating polyneuropathy
History of type 2 diabetes
History of cholecystitis status postcholecystectomy
History of partial hysterectomy
Marijuana user-smokes/vapes daily and takes edible once a while
Hx of RUE DVT -off Eliquis
Nephrolithiasis
Plan:
A/w abd pain possible mild pancreatitis
Cr has been stable/slightly improved
patient no longer wants treatment or medications and would just like to be made comfortable
she no longer wants to take her IS
we did discuss that her transplant is still functioning but patient just wants to 'be done'
our team had discussed at length for her to transfer to a [facility] center but patient adamantly refused
she was intermittently refusing IV fluids and other testing as well
care per primary team, we will sign off
d/w patient and primary team
-
-
Date of Service: May 02, 2024
CC / HPI / ROS
-
Chief Complaint:
NOLVIA, h/o KP trasnplant
History of Present Illness:
cr slightly better at 1.3 after fluids
BPs stable
patient no longer wants treatment
Review of Systems:
abd pain slightly better
Labs
-
Labs:
WBC 7.1 10^3/uL (4.8-10.8) 04/24/24 07:09
RBC 4.21 10^6/uL (4.20-5.40) 04/24/24 07:09
Hgb 12.5 g/dL (12.0-16.0) 04/24/24 07:09
Hct 38.7 % (37.0-47.0) 04/24/24 07:09
Plt Count 127 10^3/uL (130-400) L 04/24/24 07:09
Sodium 135 mmol/L (135-145) 05/02/24 04:55
Potassium 4.1 mmol/L (3.5-5.1) 05/02/24 04:55
Chloride 103 mmol/L (98-107) 05/02/24 04:55
Carbon Dioxide 29 mmol/L (22-30) 05/02/24 04:55
BUN 18 mg/dl (7-17) H 05/02/24 04:55
Creatinine 1.3 mg/dL (0.6-1.0) H 05/02/24 04:55
eGFR 47.08 05/02/24 04:55
Glucose 114 mg/dl (70-99) H 05/02/24 04:55
Calcium 8.9 mg/dl (8.4-10.2) 05/02/24 04:55
Phosphorus 3.7 mg/dl (2.5-4.5) 04/24/24 07:09
Eui-O-Ffanpsjdceu Pept 5040 pg/ml 04/25/24 08:07
Albumin 2.7 g/dl (3.5-5.0) L 04/30/24 04:39
Physical Exam
-
Vital Signs:
Vital Signs
Temp Pulse Resp BP Pulse Ox
98.0 F 83 16 136/87 95
05/02/24 07:15 05/02/24 07:15 05/02/24 07:15 05/02/24 07:15 05/02/24 07:15
Cardiovascular:: Regular rate and rhythm
Respiratory:: Bilateral: CTA
Lung Excursion:: Normal
Abdomen:: Soft and Tender
Extremity Edema:: None: Bilateral:
Jansen Catheter: No
[2024-05-02] MEDS: DILAUDID 1 MG PO ×2 (12:46→14:11)
[2024-05-02] MEDS: DURAGESIC 25 MCG/HR PATCH 1 PATCH TRANSDERM (12:46)
--- NOTE | 2024-05-02 12:55 | HOSPNOTE ---
Referral received. Hospice nurse will visit the patient and her family in the patients room today.
--- NOTE | 2024-05-02 13:20 | W.PN.HOSP.TC ---
Today's Communication/Plan
-
see note
Assessment / Plan
Assessment / Plan
05/02
Last evening patient has expressed wishes to be transition to hospice care as feeling all care is getting futile.
Patient wants to address pain control only.
Spouse was not happy with patient decision of the patient has decision-making capacity.
Hospice has been involved in care plan to visit patient family today
Patient wants to go home on hospice care and keeping that in mind we will try to transition patient to fentanyl patch and oral Dilaudid for pain control. Will require further dose escalation based on patient response
Discontinue all life-prolonging medication including tacrolimus/mycophenolate.
Complex care and all questions answered.

A&P till yesterday
#Abdominal pain likely secondary to duodenitis vs. enteritis vs. cannabinoid hyperemesis vs pancreatitis in the setting of mild alcohol usage with history of pancreatic transplant
#History of pancreatitis in the past
#Nausea and vomiting secondary to above
#Leukocytosis likely reactive Resolved
#Mild hypercalcemia likely secondary dehydration-improved
Pain control, as needed Tylenol, Dilaudid increased to 2 mg every 3 hours as needed, still getting Dilaudid every 3 hours
MRI abdomen Severe diffuse atrophy of the [place] pancreas. Slightly distended main pancreatic duct and very subtle edema anterior and superior to the pancreatic head and proximal body. Findings suspicious for mild pancreatitis. Intrahepatic and
extrahepatic bile duct dilatation. No persistent or reproducible intraluminal filling defects are identified to indicate choledocholithiasis.
GI and nephrology input appreciated
Antinausea meds as needed
PPI
Tolerates diet and p.o. intake.
Poor vascular access: Had a central venous catheter placed in right femoral area by IR on Saturday
#Constipation: Likely multifactorial including decreased mobility and pain medication
Start on senna and Colace will increase to Colace 200 twice daily as well as discussed with the patient will try to be less aggressive because of abdominal pain if not moving her bowel then may consider enema suppository, doubted bowel obstruction
#Renal transplant/Pancreatic transplant
#Acute kidney injury likely secondary to decreased p.o. intake
Continue Prograf and mycophenolate. Prednisone held and started on hydrocortisone 50 every 8, patient has been compliant with taking p.o. meds.
Tacrolimus level is pending as recollected again today,. Collected on 04/27 while hydrocortisone 50 mg IV every 12 hours, per nephrology continue the same dose until we get the tacrolimus level, which is sent out... Look like the sample of 819.
Nephrology level was 17.5 and nephrology think this is not accurate therefore repeated today
Dose Prograf increased 1mg p.o. every 12
Patient and spouse declining transfer to tertiary center including [place]
Creat was 1.6 on 04/27 then 1.5 yesterday, today 1.3
Appreciate nephro input, discussed with nephrology in detail regular
# Superficial right basilic vein thrombosis nonobstructive
-Elevate right upper extremity.
#Mild acute duodenitis
#Pneumobilia-defer to GI.
PPI
GI on board
#Transaminitis likely secondary to pancreatitis/medications versus dehydration
Trend CMP for now
Resolved
#Primary hypertension likely elevated due to pain
Pressure has been elevated, likely secondary to pain,
Continue to monitor
PRN IV meds.
Increase hydralazine to 75 mg 3 times daily and Lopressor 25 twice daily,
# Intermittent urinary retention secondary to decreased mobility
Encourage patient to get out of bed and use commode
Like to avoid placing Jansen catheter
Improved
#Chronic thrombocytopenia
Chronically low and stable
Hypothyroidism
Cont synthroid
Anxiety/depression
Continue with Xanax
History of chronic inflammatory demyelinating polyneuropathy
Holding gabapentin and tizanidine for now
History of type 2 diabetes
History of cholecystitis status postcholecystectomy
History of partial hysterectomy
Marijuana user-smokes/vapes daily and takes edible once a while
Hx of RUE DVT -off Eliquis
DVT ppx-lovenox
DNR/DNI confirmed with spouse per pt.

Anticipated Discharge: 24 - 48 hours
Subjective/Interval History
-
Date of Service: May 02, 2024
Resting comfortably in bed
Denies of any excessive nausea or vomiting
Able to tolerate diet
Family at bedside
Objective Data
-
Labs:
Laboratory Results
05/02/24
04:55
Sodium 135
Potassium 4.1
Chloride 103
Carbon Dioxide 29
BUN 18 H
Creatinine 1.3 H
Glucose 114 H
Calcium 8.9
Vital Signs:
Vital Signs
Temp Pulse Resp BP Pulse Ox
98.0 F 83 16 136/87 95
05/02/24 07:15 05/02/24 07:15 05/02/24 07:15 05/02/24 07:15 05/02/24 07:15
I&O
05/01/24 05/02/24 05/03/24
06:59 06:59 06:59
Intake Total 192 / 1920 940 / 940
Output Total 200 / 200 1700 / 1700
Balance 1720 / 1720 -760 / -760
Review of Systems
-
Respiratory: Reports No Symptoms
Cardiac: Reports No Symptoms
Abdomen/GI: Reports Abdominal Pain and Nausea; Denies Vomiting
Physical Exam
-
General: Obese; Negative Pain
HEENT: Negative Oxygen
GI: Soft, Nontender, Nondistended and Normal Bowel Sounds
Neuro: Awake, Alert, Oriented and No Motor Deficits
Psych: Calm
[2024-05-02] MEDS: MYCOSTATIN ORAL SUSPENSION 5 ML PO ×3 (13:47→23:08)
--- NOTE | 2024-05-02 15:14 | HOSPNOTE ---
Met with patient, her and patient's sister in law, hospice philosphy reviewed, patient and family in agreement. Patient would like to have hospice services when she is discharged to home. Updated hospice team and nurse case management.
[2024-05-02] MEDS: ZOFRAN 4 MG IV (15:43)
[2024-05-02] MEDS: ATIVAN 0.5 MG PO (15:43)
[2024-05-02] MEDS: LOVENOX SC (17:04)
[2024-05-02] MEDS: DILAUDID 2 MG PO (18:06)
[2024-05-02] MEDS: SENOKOT PO (19:48)
[2024-05-02] MEDS: XANAX 1 MG PO (23:08)
[2024-05-02 23:16] VITALS: BP 146/77
[2024-05-03] MEDS: DILAUDID 2 MG PO ×4 (06:47→21:10)
[2024-05-03 07:15] VITALS: BP 190/103
[2024-05-03] MEDS: PROTONIX IV 40 MG IV (08:19)
[2024-05-03] MEDS: NSS (PRESERVATIVE FREE) 10 ML IV (08:20)
[2024-05-03] MEDS: COLACE PO ×2 (08:20→20:26)
[2024-05-03] MEDS: MYCOSTATIN ORAL SUSPENSION PO ×4 (08:20→20:26)
[2024-05-03] MEDS: DURAGESIC 50 MCG/HR PATCH 1 PATCH TRANSDERM (09:05)
[2024-05-03] MEDS: ATIVAN 0.5 MG PO (09:07)
[2024-05-03] MEDS: COMPAZINE 10 MG IV (09:07)
--- NOTE | 2024-05-03 11:04 | PTCARENOTE ---
fentanyl patch increase fro 25 to 50. patch placed on wasted with witness and new patch placed on left scapula. prn pain med given for 8/10 pain. see MAR for proper documentation. prn ativan given this morning through [facility]
[2024-05-03 11:05] VITALS: BP 160/79
--- NOTE | 2024-05-03 11:15 | W.PN.HOSP.TC ---
Today's Communication/Plan
-
see note
home hospice discharge tomorrow likely
Assessment / Plan
Assessment / Plan
05/03
Patient still have some ongoing pain, will change the fentanyl patch to 50mcg/hr
Patient somewhat somnolent during round but per RN able to participate in her ADL.
Discussed case with hospice care and there was question of patient may not qualify for hospice. As patient being taken off transplant rejection med will qualify per Dr Cristina. Hospice OK with this assessment and work on DME and home hospice
discharge tomorrow.
05/02
Last evening patient has expressed wishes to be transition to hospice care as feeling all care is getting futile.
Patient wants to address pain control only.
Spouse was not happy with patient decision of the patient has decision-making capacity.
Hospice has been involved in care plan to visit patient family today
Patient wants to go home on hospice care and keeping that in mind we will try to transition patient to fentanyl patch and oral Dilaudid for pain control. Will require further dose escalation based on patient response
Discontinue all life-prolonging medication including tacrolimus/mycophenolate.
Complex care and all questions answered.

A&P till yesterday
#Abdominal pain likely secondary to duodenitis vs. enteritis vs. cannabinoid hyperemesis vs pancreatitis in the setting of mild alcohol usage with history of pancreatic transplant
#History of pancreatitis in the past
#Nausea and vomiting secondary to above
#Leukocytosis likely reactive Resolved
#Mild hypercalcemia likely secondary dehydration-improved
Pain control, as needed Tylenol, Dilaudid increased to 2 mg every 3 hours as needed, still getting Dilaudid every 3 hours
MRI abdomen Severe diffuse atrophy of the [place] pancreas. Slightly distended main pancreatic duct and very subtle edema anterior and superior to the pancreatic head and proximal body. Findings suspicious for mild pancreatitis. Intrahepatic and
extrahepatic bile duct dilatation. No persistent or reproducible intraluminal filling defects are identified to indicate choledocholithiasis.
GI and nephrology input appreciated
Antinausea meds as needed
PPI
Tolerates diet and p.o. intake.
Poor vascular access: Had a central venous catheter placed in right femoral area by IR on Saturday
#Constipation: Likely multifactorial including decreased mobility and pain medication
Start on senna and Colace will increase to Colace 200 twice daily as well as discussed with the patient will try to be less aggressive because of abdominal pain if not moving her bowel then may consider enema suppository, doubted bowel obstruction
#Renal transplant/Pancreatic transplant
#Acute kidney injury likely secondary to decreased p.o. intake
Continue Prograf and mycophenolate. Prednisone held and started on hydrocortisone 50 every 8, patient has been compliant with taking p.o. meds.
Tacrolimus level is pending as recollected again today,. Collected on 04/27 while hydrocortisone 50 mg IV every 12 hours, per nephrology continue the same dose until we get the tacrolimus level, which is sent out... Look like the sample of 819.
Nephrology level was 17.5 and nephrology think this is not accurate therefore repeated today
Dose Prograf increased 1mg p.o. every 12
Patient and spouse declining transfer to tertiary center including [place]
Creat was 1.6 on 04/27 then 1.5 yesterday, today 1.3
Appreciate nephro input, discussed with nephrology in detail regular
# Superficial right basilic vein thrombosis nonobstructive
-Elevate right upper extremity.
#Mild acute duodenitis
#Pneumobilia-defer to GI.
PPI
GI on board
#Transaminitis likely secondary to pancreatitis/medications versus dehydration
Trend CMP for now
Resolved
#Primary hypertension likely elevated due to pain
Pressure has been elevated, likely secondary to pain,
Continue to monitor
PRN IV meds.
Increase hydralazine to 75 mg 3 times daily and Lopressor 25 twice daily,
# Intermittent urinary retention secondary to decreased mobility
Encourage patient to get out of bed and use commode
Like to avoid placing Jansen catheter
Improved
#Chronic thrombocytopenia
Chronically low and stable
Hypothyroidism
Cont synthroid
Anxiety/depression
Continue with Xanax
History of chronic inflammatory demyelinating polyneuropathy
Holding gabapentin and tizanidine for now
History of type 2 diabetes
History of cholecystitis status postcholecystectomy
History of partial hysterectomy
Marijuana user-smokes/vapes daily and takes edible once a while
Hx of RUE DVT -off Eliquis
DVT ppx-lovenox
DNR/DNI confirmed with spouse per pt.

Anticipated Discharge: Within 24 hours
Subjective/Interval History
-
Date of Service: May 03, 2024
patient somnolent today
was complaining of some worsening abd pain, no nausea/vomiting
no other reported issues
Objective Data
-
Vital Signs:
Vital Signs
Temp Pulse Resp BP Pulse Ox
98.4 F 91 18 160/79 96
05/03/24 07:15 05/03/24 11:05 05/03/24 07:15 05/03/24 11:05 05/03/24 07:15
I&O
05/02/24 05/03/24 05/04/24
06:59 06:59 06:59
Intake Total 940 / 940 1320 / 1320
Output Total 1700 / 1700 1600 / 1600
Balance -760 / -760 -280 / -280
Review of Systems
-
Respiratory: Reports No Symptoms
Cardiac: Reports No Symptoms
Abdomen/GI: Reports Abdominal Pain; Denies Nausea
Physical Exam
-
General: Obese; Negative Pain
HEENT: Negative Oxygen
GI: Soft, Nontender, Nondistended and Normal Bowel Sounds
Neuro: Awake, Alert, Oriented and No Motor Deficits
Psych: Calm
[2024-05-03 12:25] VITALS: BP 148/81
--- NOTE | 2024-05-03 15:19 | CM ---
Patient requested CM to talk to him about home hospice and supports available. CM provided information on [employer] [facility] and [facility] and will provide list of aids/supports. CM spoke with flight crew ordnanceman to request Social work support with
patient when possible. Plan is for discharge home with home hospice on saturday. CM will continue to follow for discharge planning needs.
Plan; home with hospice
[2024-05-03] MEDS: NSS (PRESERVATIVE FREE) IV (20:26)
[2024-05-03] MEDS: PROTONIX IV IV (20:26)
[2024-05-03] MEDS: SENOKOT PO (20:26)
[2024-05-03] MEDS: XANAX 1 MG PO (21:11)
[2024-05-03 23:30] VITALS: BP 116/73
[2024-05-04] MEDS: DILAUDID 2 MG PO ×5 (02:04→21:29)
[2024-05-04 07:10] VITALS: BP 187/85
--- NOTE | 2024-05-04 07:32 | W.CON.PAL ---
Addendum entered and electronically signed by Victoria Cristina MD 05/04/24 09:24:
Reconsult palliative care if needed.
Original Note:
Consultation
-
Date/Time Consultation Requested: 05/03/2024 10:47 AM
Requesting Provider: Dr. Connors
Consult Requested By: Patient's Physician
Reason for Admission
Illness Course/HPI
Palliative care consult received over the weekend. Case was reviewed on saturday with attending physician and with hospice team. Patient eligible for hospice care as she is opting to discontinue transplant medications. Hospice referral placed. Home
hospice care to be arranged for saturday. Goals appear to be clear at this time.
Objective Data
-
Objective Data:
Vital Signs
Temp Pulse Resp BP Pulse Ox
99.5 F 90 18 116/73 93
05/03/24 23:30 05/03/24 23:30 05/03/24 23:30 05/03/24 23:30 05/03/24 23:30
Laboratory Results
04/24/24 07:09
05/02/24 04:55
Total Protein 4.9 g/dl (6.3-8.2) L 04/30/24 04:39
Albumin 2.7 g/dl (3.5-5.0) L 04/30/24 04:39
Urine Color Yellow 04/24/24 14:19
Urine Clarity Slightly cloudy (Clear) 04/24/24 14:19
Urine pH 6.0 (5.0-9.0) 04/24/24 14:19
Ur Specific [place] 1.020 (<1.030) 04/24/24 14:19
Urine Ketones 2+ (Negative) A 04/24/24 14:19
Urine Bilirubin 1+ (Negative) A 04/24/24 14:19
Palliative Performance Scale
Palliative Performance Scale:
PPS Level Ambulation Activity & Evidence of Disease Self Care Intake Conscious Level
100% Full Normal Activity & Work; Full Intake Full
No Evidence of Disease
90% Full Normal Activity & Work; Full Normal Full
Some Evidence of Disease
80% Full Normal Activity with Effort Full Normal or Full
Some Evidence of Disease Reduced
70% Reduced Unable Normal Job/Work Full Normal or Full
Significant Disease Reduced
60% Reduced Unable Hobby/Housework Occasional Normal or Full or Confusion
Significant Disease Assistance Reduced
50% Mainly Sit/Lie Unable to do Any Work Considerable Normal or Full or Confusion
Extensive Disease Assistance Req'd Reduced
40% Mainly in Bed Unable to do Most Activity Mainly Assistance Normal or Full or Drowsy;
Extensive Disease Reduced +/- Confusion
30% Totally Bed Unable to do Any Activity Total Care Normal or Full or Drowsy;
Bound Extensive Disease Reduced +/- Confusion
20% Totally Bed Bound Unable to do Any Activity Total Care Minimal to Full or Drowsy;
Extensive Disease Sips +/- Confusion
10% Totally Bed Bound Unable to do Any Activity Total Care Mouth Care Drowsy or Coma;
Extensive Disease Only +/- Confusion
0%
PPS Score Level:
Assessment / Plan
-
Assessment/Plan:
Based on the current condition, prognosis, comorbidities, patient's goals & wishes as discussed above, the palliative care team has made the following recommendations:
Focus & Plan of Care:
Hospice Care:
Palliative Care:
Advanced Care Directives, Resuscitation & Out of Hospital Medical Orders:
Pain & Symptom Management:
Discharge Planning Needs:
Other:
The above recommendations were discussed with the patient/family and medical team.
[2024-05-04] MEDS: TYLENOL 650 MG PO (07:59)
[2024-05-04] MEDS: PROTONIX IV IV (08:04)
[2024-05-04] MEDS: MYCOSTATIN ORAL SUSPENSION PO ×5 (08:04→22:21)
[2024-05-04] MEDS: NSS (PRESERVATIVE FREE) IV (08:04)
[2024-05-04] MEDS: COLACE 100 MG PO ×2 (08:05→19:55)
[2024-05-04] MEDS: ZOFRAN 4 MG IV ×3 (08:05→19:55)
--- NOTE | 2024-05-04 10:34 | W.PN.HOSP.TC ---
Today's Communication/Plan
-
DC to home hospice once home arrangement completed
Patient has decided to go on hospice and refused all further management and treatment plan.
Assessment / Plan
Assessment / Plan
#Abdominal pain likely secondary to duodenitis vs. enteritis vs. cannabinoid hyperemesis vs pancreatitis in the setting of mild alcohol usage with history of pancreatic transplant
#History of pancreatitis in the past
#Nausea and vomiting secondary to above
#Leukocytosis likely reactive Resolved
#Mild hypercalcemia likely secondary dehydration-improved
Pain control, as needed Tylenol, Dilaudid increased to 2 mg every 3 hours as needed, still getting Dilaudid every 3 hours
MRI abdomen Severe diffuse atrophy of the [place] pancreas. Slightly distended main pancreatic duct and very subtle edema anterior and superior to the pancreatic head and proximal body. Findings suspicious for mild pancreatitis. Intrahepatic and
extrahepatic bile duct dilatation. No persistent or reproducible intraluminal filling defects are identified to indicate choledocholithiasis.
GI and nephrology input appreciated
Antinausea meds as needed
PPI
Tolerates diet and p.o. intake.
Poor vascular access: Had a central venous catheter placed in right femoral area by IR on Saturday
Has decided to transition to hospice and decided to stop taking all immunosuppressive medication. Patient has decided to go on hospice and refused all further management and treatment plan.
#Constipation: Likely multifactorial including decreased mobility and pain medication
Start on senna and Colace will increase to Colace 200 twice daily as well as discussed with the patient will try to be less aggressive because of abdominal pain if not moving her bowel then may consider enema suppository, doubted bowel obstruction
#Renal transplant/Pancreatic transplant
#Acute kidney injury likely secondary to decreased p.o. intake
Continue Prograf and mycophenolate. Prednisone held and started on hydrocortisone 50 every 8, patient has been compliant with taking p.o. meds.
Tacrolimus level is pending as recollected again today,. Collected on 04/27 while hydrocortisone 50 mg IV every 12 hours, per nephrology continue the same dose until we get the tacrolimus level, which is sent out... Look like the sample of 819.
Nephrology level was 17.5 and nephrology think this is not accurate therefore repeated today
Dose Prograf increased 1mg p.o. every 12
Patient and spouse declining transfer to tertiary center including [place]
Creat was 1.6 on 04/27 then 1.5 yesterday, today 1.3
Appreciate nephro input, discussed with nephrology in detail regular
# Superficial right basilic vein thrombosis nonobstructive
-Elevate right upper extremity.
#Mild acute duodenitis
#Pneumobilia-defer to GI.
PPI
GI on board
#Transaminitis likely secondary to pancreatitis/medications versus dehydration
Trend CMP for now
Resolved
#Primary hypertension likely elevated due to pain
Pressure has been elevated, likely secondary to pain,
Continue to monitor
PRN IV meds.
Increase hydralazine to 75 mg 3 times daily and Lopressor 25 twice daily,
# Intermittent urinary retention secondary to decreased mobility
Encourage patient to get out of bed and use commode
Like to avoid placing Jansen catheter
Improved
#Chronic thrombocytopenia
Chronically low and stable
Hypothyroidism
Cont synthroid
Anxiety/depression
Continue with Xanax
History of chronic inflammatory demyelinating polyneuropathy
Holding gabapentin and tizanidine for now
History of type 2 diabetes
History of cholecystitis status postcholecystectomy
History of partial hysterectomy
Marijuana user-smokes/vapes daily and takes edible once a while
Hx of RUE DVT -off Eliquis
DVT ppx-lovenox
DNR/DNI confirmed with spouse per pt.
Discussed with patient and patient's spouse at bedside. patient has agreed to move and transition to home hospice. Spouse now agrees with patient's decision. Family is deciding which mom to go to as spouse is unable to take care of patient at
home. They understand the poor prognosis and stopping all immunosuppressive medications. Patient is awake alert and oriented and able to make her own decision. Will adjust pain medication as requested. Discussed with palliative care with .
Victoria Cristina.
Case management for dispo. Medically stable. DC once home arrangements completed.
Anticipated Discharge: Within 24 hours
Subjective/Interval History
-
Date of Service: May 04, 2024
states she has possible UTI
feeling warm
remains with abd pain
Objective Data
-
Vital Signs:
Vital Signs
Temp Pulse Resp BP Pulse Ox
100.5 F H 90 14 187/85 94
05/04/24 07:10 05/04/24 07:10 05/04/24 07:10 05/04/24 07:10 05/04/24 07:10
I&O
05/03/24 05/04/24 05/05/24
06:59 06:59 06:59
Intake Total 1320 / 1320 1680 / 1680
Output Total 1600 / 1600 3900 / 3900
Balance -280 / -280 -2220 / -2220
Physical Exam
-
General: Obese; Negative Pain
HEENT: Normocephalic and Atraumatic; Negative Oxygen
Respiratory: Clear to Auscultation
Cardiac: Regular Rhythm and S1/S2
GI: Soft, Nontender, Nondistended and Normal Bowel Sounds
Neuro: Awake, Alert, Oriented and No Motor Deficits
Psych: Calm
Data Reviewed
-
Total Time Spent with Patient (in minutes): 56
[2024-05-04 11:15] VITALS: BP 204/86
[2024-05-04] MEDS: AUGMENTIN 500 MG/125 MG 1 TABLET PO ×2 (11:23→19:54)
[2024-05-04] MEDS: APRESOLINE 10 MG IV (11:30)
[2024-05-04] MEDS: COMPAZINE 10 MG IV ×2 (11:35→17:48)
--- NOTE | 2024-05-04 12:24 | PTOTSP ---
SPOKE WITH RN WHO CONFIRMS THAT PATIENT HAS DECIDED TO PURSUE HOSPICE UPON DISCHARGE FROM HOSPITAL. PATIENT CONTACTED BEDSIDE AND DECLINED TO PARTICIPATE IN THERAPY, WANTING TO VISIT WITH FAMILY PRESENT. WILL DISCHARGE FROM P.T. SERVICES PER
PATIENT'S WISHES.
[2024-05-04 12:52] VITALS: BP 108/63
--- NOTE | 2024-05-04 13:02 | CM ---
CM following re: discharge planning.
Reviewed pt's chart, met with pt. Pt's , pt's sister Pat [phone] and pt's niece at bedside.
Pt's brought to me his unpleasant feelings regrading being pushed for discharge. Pt's sister imelda stated that pt cannot return back to her house and family is deciding to whether pr will go to her son's house or pr can come to sister's house.
per sister, family awaiting for son to make a final decision.
Pt's family requested information regarding applying for Medicaid. Information provided and [facility]. IMM reviewed, placed on chart, pt has a copy.
management liaison following.
D/C plan: home to son's house vs sisters's house with hospice.
CM will follow to assist pt with discharge home with hospice
--- NOTE | 2024-05-04 13:32 | HOSPNOTE ---
Discharge is on hold. Family and patient in agreement with hospice just need to know where she will go either the sons house or sisters house. Will await decision.
[2024-05-04 19:29] VITALS: BP 126/58
[2024-05-04] MEDS: SENOKOT 17.2 MG PO (19:54)
[2024-05-04] MEDS: XANAX 1 MG PO (22:18)
[2024-05-04 23:18] VITALS: BP 118/52
[2024-05-05 07:10] VITALS: BP 172/91
[2024-05-05] MEDS: MYCOSTATIN ORAL SUSPENSION 5 ML PO (07:59)
[2024-05-05] MEDS: ZOFRAN 4 MG IV ×2 (07:59→21:51)
[2024-05-05] MEDS: DILAUDID 2 MG PO ×4 (07:59→21:48)
[2024-05-05] MEDS: COLACE 100 MG PO ×2 (07:59→19:41)
[2024-05-05] MEDS: AUGMENTIN 500 MG/125 MG 1 TABLET PO ×2 (07:59→19:41)
[2024-05-05] MEDS: DULCOLAX 10 MG PO (10:14)
--- NOTE | 2024-05-05 11:11 | W.PN.HOSP.TC ---
Today's Communication/Plan
-
Case management for dispo. Medically stable. DC once home arrangements completed.
Assessment / Plan
Assessment / Plan
#Abdominal pain likely secondary to duodenitis vs. enteritis vs. cannabinoid hyperemesis vs pancreatitis in the setting of mild alcohol usage with history of pancreatic transplant
#History of pancreatitis in the past
#Nausea and vomiting secondary to above
#Leukocytosis likely reactive Resolved
#Mild hypercalcemia likely secondary dehydration-improved
Pain control, as needed Tylenol, Dilaudid increased to 2 mg every 3 hours as needed, still getting Dilaudid every 3 hours
MRI abdomen Severe diffuse atrophy of the [place] pancreas. Slightly distended main pancreatic duct and very subtle edema anterior and superior to the pancreatic head and proximal body. Findings suspicious for mild pancreatitis. Intrahepatic and
extrahepatic bile duct dilatation. No persistent or reproducible intraluminal filling defects are identified to indicate choledocholithiasis.
GI and nephrology input appreciated
Antinausea meds as needed
PPI
Tolerates diet and p.o. intake.
Poor vascular access: Had a central venous catheter placed in right femoral area by IR on Saturday
Has decided to transition to hospice and decided to stop taking all immunosuppressive medication. Patient has decided to go on hospice and refused all further management and treatment plan.
#Constipation: Likely multifactorial including decreased mobility and pain medication
Continue with senna Colace. Dulcolax started. miralax.
#Renal transplant/Pancreatic transplant
#Acute kidney injury likely secondary to decreased p.o. intake
Continue Prograf and mycophenolate. Prednisone held and started on hydrocortisone 50 every 8, patient has been compliant with taking p.o. meds.
Tacrolimus level is pending as recollected again today,. Collected on 04/27 while hydrocortisone 50 mg IV every 12 hours, per nephrology continue the same dose until we get the tacrolimus level, which is sent out... Look like the sample of 819.
Nephrology level was 17.5 and nephrology think this is not accurate therefore repeated today
Dose Prograf increased 1mg p.o. every 12
Patient and spouse declining transfer to tertiary center including [place]
Creat was 1.6 on 04/27 then 1.5 yesterday, today 1.3
Appreciate nephro input, discussed with nephrology in detail regular
# Superficial right basilic vein thrombosis nonobstructive
-Elevate right upper extremity.
#Mild acute duodenitis
#Pneumobilia-defer to GI.
PPI
GI on board
#Transaminitis likely secondary to pancreatitis/medications versus dehydration
Trend CMP for now
Resolved
#Primary hypertension likely elevated due to pain
Pressure has been elevated, likely secondary to pain,
Continue to monitor
PRN IV meds.
Increase hydralazine to 75 mg 3 times daily and Lopressor 25 twice daily,
# Intermittent urinary retention secondary to decreased mobility
Encourage patient to get out of bed and use commode
Like to avoid placing Jansen catheter
Improved
#Chronic thrombocytopenia
Chronically low and stable
Hypothyroidism
Cont synthroid
Anxiety/depression
Continue with Xanax
History of chronic inflammatory demyelinating polyneuropathy
Holding gabapentin and tizanidine for now
History of type 2 diabetes
History of cholecystitis status postcholecystectomy
History of partial hysterectomy
Marijuana user-smokes/vapes daily and takes edible once a while
Hx of RUE DVT -off Eliquis
DVT ppx-lovenox
DNR/DNI confirmed with spouse per pt.
Discussed with patient and patient's spouse at bedside on 05/04/24. patient has agreed to move and transition to home hospice. Spouse now agrees with patient's decision. Family is deciding which mom to go to as spouse is unable to take care of
patient at home. They understand the poor prognosis and stopping all immunosuppressive medications. Patient is awake alert and oriented and able to make her own decision. Will adjust pain medication as requested. Discussed with palliative care
with Dr. Victoria Cristina.
Case management for dispo. Medically stable. DC once home arrangements completed.
Anticipated Discharge: Today
Subjective/Interval History
-
Date of Service: May 05, 2024
Patient with some nausea this morning
States of constipation
Objective Data
-
Vital Signs:
Vital Signs
Temp Pulse Resp BP Pulse Ox
98.5 F 97 18 172/91 88
05/05/24 07:10 05/05/24 07:10 05/05/24 07:10 05/05/24 07:10 05/05/24 07:10
I&O
05/04/24 05/05/24 05/06/24
06:59 06:59 06:59
Intake Total 1680 / 1680 580 / 580
Output Total 3900 / 3900 1350 / 1350 450 / 450
Balance -2220 / -2220 -770 / -770 -450 / -450
Physical Exam
-
General: Obese; Negative Pain
HEENT: Normocephalic and Atraumatic; Negative Oxygen
Respiratory: Clear to Auscultation
GI: Soft, Nontender, Nondistended and Normal Bowel Sounds
Neuro: Awake, Alert, Oriented and No Motor Deficits
Psych: Calm
--- NOTE | 2024-05-05 14:30 | HOSPNOTE ---
The plan is for the patient to go home on Saturday to her sons home. [address] [facility] [facility] [id number] and then sign onto hospice services. Equipment will be ordered for delivery on Saturday morning and then transport will be needed via ambulance.
[facility] DNR will be needed on chart. I will continue to follow daily.
--- NOTE | 2024-05-05 16:24 | CM ---
CM continues to follow, however at this time plans are in place for discharge to hospice care; DME being coordinated by plant changer for delivery on Saturday to her son's house at [address] [place] [address] in [place] [address].
CM to follow for ambulance transport and out of hospital DNR.
[2024-05-05] MEDS: SENOKOT 17.2 MG PO (19:42)
[2024-05-05] MEDS: XANAX 1 MG PO (22:31)
[2024-05-05 23:08] VITALS: BP 152/75
[2024-05-06] MEDS: DILAUDID 2 MG PO ×4 (03:49→18:25)
[2024-05-06 07:15] VITALS: BP 141/74
[2024-05-06] MEDS: ZOFRAN 4 MG IV ×2 (09:05→18:25)
[2024-05-06] MEDS: COLACE 100 MG PO (09:05)
[2024-05-06] MEDS: AUGMENTIN 500 MG/125 MG 1 TABLET PO (09:05)
[2024-05-06] MEDS: DURAGESIC 50 MCG/HR PATCH 1 PATCH TRANSDERM (09:06)
--- NOTE | 2024-05-06 10:01 | W.PN.HOSP.TC ---
Today's Communication/Plan
-
Case management for dispo. Medically stable. DC once home arrangements completed.
Assessment / Plan
Assessment / Plan
General: Obese; Negative Pain
HEENT: Normocephalic and Atraumatic; Negative Oxygen
Respiratory: Clear to Auscultation
GI: Soft, Nontender, Nondistended and Normal Bowel Sounds
Neuro: Awake, Alert, Oriented and No Motor Deficits
Psych: Calm
#Abdominal pain likely secondary to duodenitis vs. enteritis vs. cannabinoid hyperemesis vs pancreatitis in the setting of mild alcohol usage with history of pancreatic transplant
#History of pancreatitis in the past
#Nausea and vomiting secondary to above
#Leukocytosis likely reactive Resolved
#Mild hypercalcemia likely secondary dehydration-improved
Pain control, as needed Tylenol, Dilaudid increased to 2 mg every 3 hours as needed, still getting Dilaudid every 3 hours
MRI abdomen Severe diffuse atrophy of the [place] pancreas. Slightly distended main pancreatic duct and very subtle edema anterior and superior to the pancreatic head and proximal body. Findings suspicious for mild pancreatitis. Intrahepatic and
extrahepatic bile duct dilatation. No persistent or reproducible intraluminal filling defects are identified to indicate choledocholithiasis.
GI and nephrology input appreciated
Antinausea meds as needed
PPI
Tolerates diet and p.o. intake.
Poor vascular access: Had a central venous catheter placed in right femoral area by IR on Saturday
Has decided to transition to hospice and decided to stop taking all immunosuppressive medication. Patient has decided to go on hospice and refused all further management and treatment plan.
#Constipation: Likely multifactorial including decreased mobility and pain medication
Continue with senna Colace. Dulcolax started. miralax.
Had multiple bm 05/05
#Renal transplant/Pancreatic transplant
#Acute kidney injury likely secondary to decreased p.o. intake
Continue Prograf and mycophenolate. Prednisone held and started on hydrocortisone 50 every 8, patient has been compliant with taking p.o. meds.
Tacrolimus level is pending as recollected again today,. Collected on 04/27 while hydrocortisone 50 mg IV every 12 hours, per nephrology continue the same dose until we get the tacrolimus level, which is sent out... Look like the sample of 819.
Nephrology level was 17.5 and nephrology think this is not accurate therefore repeated today
Dose Prograf increased 1mg p.o. every 12
Patient and spouse declining transfer to tertiary center including [place]
Creat was 1.6 on 04/27 then 1.5 yesterday, today 1.3
Appreciate nephro input, discussed with nephrology in detail regular
# Superficial right basilic vein thrombosis nonobstructive
-Elevate right upper extremity.
#Mild acute duodenitis
#Pneumobilia-defer to GI.
PPI
GI on board
#Transaminitis likely secondary to pancreatitis/medications versus dehydration
Trend CMP for now
Resolved
#Primary hypertension likely elevated due to pain
Pressure has been elevated, likely secondary to pain,
Continue to monitor
PRN IV meds.
Increase hydralazine to 75 mg 3 times daily and Lopressor 25 twice daily,
# Intermittent urinary retention secondary to decreased mobility
Encourage patient to get out of bed and use commode
Like to avoid placing Jansen catheter
Improved
#Chronic thrombocytopenia
Chronically low and stable
Hypothyroidism
Cont synthroid
Anxiety/depression
Continue with Xanax
History of chronic inflammatory demyelinating polyneuropathy
Holding gabapentin and tizanidine for now
History of type 2 diabetes
History of cholecystitis status postcholecystectomy
History of partial hysterectomy
Marijuana user-smokes/vapes daily and takes edible once a while
Hx of RUE DVT -off Eliquis
DVT ppx-lovenox
DNR/DNI confirmed with spouse per pt.
Discussed with patient and patient's spouse at bedside on 05/04/24. patient has agreed to move and transition to home hospice. Spouse now agrees with patient's decision. Family is deciding which mom to go to as spouse is unable to take care of
patient at home. They understand the poor prognosis and stopping all immunosuppressive medications. Patient is awake alert and oriented and able to make her own decision. Will adjust pain medication as requested. Discussed with palliative care
with Dr. Victoria Cristina.
Case management for dispo. Medically stable. DC once home arrangements completed.
DC saturday to son house
Anticipated Discharge: 24 - 48 hours
Subjective/Interval History
-
Date of Service: May 06, 2024
States of nausea earlier in am
had bm yesterday
Objective Data
-
Vital Signs:
Vital Signs
Temp Pulse Resp BP Pulse Ox
100.1 F 101 16 141/74 93
05/06/24 07:15 05/06/24 07:15 05/06/24 07:15 05/06/24 07:15 05/06/24 07:15
I&O
05/05/24 05/06/24 05/07/24
06:59 06:59 06:59
Intake Total 580 / 580 1480 / 1480
Output Total 1350 / 1350 2200 / 2200
Balance -770 / -770 -720 / -720
--- NOTE | 2024-05-06 11:02 | PN.CDI ---
CDI
- -
CDI:
Physician Documentation Request
Admit Date: 04/21/24 09:16
Dear Doctor Estela,
Clinical Indicators:
Patient admitted with abdominal pain.
04/21 H & P, 'Spouse state of coffee-ground emesis... No melanotic stools... Mild acute duodenitis'
04/21 GI consult, 'epigastric abdominal pain with nausea vomiting and small amount of coffee-ground emesis'
Hgb/Hct trend:
04/21/24 04/22/24 04/23/24
05:14 05:32 06:10
Hgb 16.1 H 12.9 13.1
Hct 48.4 H 39.9 40.9
04/24/24
07:09
Hgb 12.5
Hct 38.7
Please clarify the likely relationship between these duodenitis/coffee ground emesis:
Acute Duodenitis with bleeding
Acute Duodenitis without bleeding
Other, please specify
Use of terms such as suspected, likely, concern for, or probable (associated with a specific diagnosis that is being evaluated, monitored, or treated as if it exists) are acceptable and can be coded in the inpatient setting, when documented at the
time of discharge.
Thank you,
Teresa Riddle RN BSN
CDI Specialist
available via tiger text
Please use your independent medical judgment in providing your response.
[2024-05-06 11:40] VITALS: BP 143/85
--- NOTE | 2024-05-06 11:51 | HOSPNOTE ---
Spoke to spouse this am, all equipment was ordered for delivery Saturday morning. and a local fill of pain medications will be ordered for tack picker on Saturday. Patient will need transport scheduled. Will follow up tomorrow.
[2024-05-06] MEDS: COMPAZINE 10 MG IV (12:05)
--- NOTE | 2024-05-06 15:30 | CM ---
Patient seen bedside. Sleeping.
Outpatient DNR form on chart to be signed.
Equipment to be delivered to sons home Saturday am.
Plan:home with Hospice Saturday, arrange transport for 11 am.
[2024-05-06] MEDS: DILAUDID 0.75 MG IV (20:29)
[2024-05-06 20:34] VITALS: BP 102/57
[2024-05-06] MEDS: COLACE PO (20:38)
[2024-05-06] MEDS: SENOKOT PO (20:38)
[2024-05-06] MEDS: AUGMENTIN 500 MG/125 MG PO (20:38)
[2024-05-06] MEDS: TYLENOL 650 MG PO (20:41)
[2024-05-06] MEDS: XANAX 1 MG PO (21:33)
[2024-05-07] MEDS: DILAUDID 2 MG PO ×5 (01:20→17:54)
[2024-05-07 07:10] VITALS: BP 162/81
[2024-05-07] MEDS: COLACE PO (08:51)
[2024-05-07] MEDS: AUGMENTIN 500 MG/125 MG PO ×3 (08:51→21:41)
[2024-05-07] MEDS: ZOFRAN 4 MG IV ×2 (08:52→17:54)
[2024-05-07] MEDS: APRESOLINE 10 MG IV (08:54)
--- NOTE | 2024-05-07 09:18 | VATNOTE ---
Patient requested that Femoral TLC not be redressed today, as it will be discontinued 05/08 prior to discharge to home hospice.
--- NOTE | 2024-05-07 09:57 | W.PN.HOSP.TC ---
Addendum entered and electronically signed by Rober Palmer MD 05/07/24 10:44:
Acute duodenitis without bleeding
Original Note:
Today's Communication/Plan
-
benadyrl
hospice dc in am
Assessment / Plan
Assessment / Plan
General: Obese; Negative Pain
HEENT: Normocephalic and Atraumatic; Negative Oxygen
Respiratory: Clear to Auscultation
GI: Soft, Nontender, Nondistended and Normal Bowel Sounds
Neuro: Awake, Alert, Oriented and No Motor Deficits
Psych: Calm
#Abdominal pain likely secondary to duodenitis vs. enteritis vs. cannabinoid hyperemesis vs pancreatitis in the setting of mild alcohol usage with history of pancreatic transplant
#History of pancreatitis in the past
#Nausea and vomiting secondary to above
#Leukocytosis likely reactive Resolved
#Mild hypercalcemia likely secondary dehydration-improved
Pain control, as needed Tylenol, Dilaudid increased to 2 mg every 3 hours as needed, still getting Dilaudid every 3 hours
MRI abdomen Severe diffuse atrophy of the [place] pancreas. Slightly distended main pancreatic duct and very subtle edema anterior and superior to the pancreatic head and proximal body. Findings suspicious for mild pancreatitis. Intrahepatic and
extrahepatic bile duct dilatation. No persistent or reproducible intraluminal filling defects are identified to indicate choledocholithiasis.
GI and nephrology input appreciated
Antinausea meds as needed
PPI
Tolerates diet and p.o. intake.
Poor vascular access: Had a central venous catheter placed in right femoral area by IR on Saturday
Has decided to transition to hospice and decided to stop taking all immunosuppressive medication. Patient has decided to go on hospice and refused all further management and treatment plan.
#Constipation: Likely multifactorial including decreased mobility and pain medication
Continue with senna Colace. Dulcolax started. miralax.
Had multiple bm 05/05
#Renal transplant/Pancreatic transplant
#Acute kidney injury likely secondary to decreased p.o. intake
Continue Prograf and mycophenolate. Prednisone held and started on hydrocortisone 50 every 8, patient has been compliant with taking p.o. meds.
Tacrolimus level is pending as recollected again today,. Collected on 04/27 while hydrocortisone 50 mg IV every 12 hours, per nephrology continue the same dose until we get the tacrolimus level, which is sent out... Look like the sample of 819.
Nephrology level was 17.5 and nephrology think this is not accurate therefore repeated today
Dose Prograf increased 1mg p.o. every 12
Patient and spouse declining transfer to tertiary center including [place]
Creat was 1.6 on 04/27 then 1.5 yesterday, today 1.3
Appreciate nephro input, discussed with nephrology in detail regular
benaydrl prn-?uremia pruritis
# Superficial right basilic vein thrombosis nonobstructive
-Elevate right upper extremity.
#Mild acute duodenitis
#Pneumobilia-defer to GI.
PPI
GI on board
#Transaminitis likely secondary to pancreatitis/medications versus dehydration
Trend CMP for now
Resolved
#Primary hypertension likely elevated due to pain
Pressure has been elevated, likely secondary to pain,
Continue to monitor
PRN IV meds.
Increase hydralazine to 75 mg 3 times daily and Lopressor 25 twice daily,
# Intermittent urinary retention secondary to decreased mobility
Encourage patient to get out of bed and use commode
Like to avoid placing Jansen catheter
Improved
#Chronic thrombocytopenia
Chronically low and stable
Hypothyroidism
Cont synthroid
Anxiety/depression
Continue with Xanax
History of chronic inflammatory demyelinating polyneuropathy
Holding gabapentin and tizanidine for now
History of type 2 diabetes
History of cholecystitis status postcholecystectomy
History of partial hysterectomy
Marijuana user-smokes/vapes daily and takes edible once a while
Hx of RUE DVT -off Eliquis
DVT ppx-lovenox
DNR/DNI confirmed with spouse per pt.
Discussed with patient and patient's spouse at bedside on 05/04/24. patient has agreed to move and transition to home hospice. Spouse now agrees with patient's decision. Family is deciding which mom to go to as spouse is unable to take care of
patient at home. They understand the poor prognosis and stopping all immunosuppressive medications. Patient is awake alert and oriented and able to make her own decision. Will adjust pain medication as requested. Discussed with palliative care
with Dr. Victoria Cristina.
Case management for dispo. Medically stable. DC once home arrangements completed.
DC saturday to son house
Anticipated Discharge: Within 24 hours
Subjective/Interval History
-
Date of Service: May 07, 2024
tolerating some diet
Objective Data
-
Vital Signs:
Vital Signs
Temp Pulse Resp BP Pulse Ox
97.7 F 90 16 190/99 96
05/07/24 07:10 05/07/24 08:54 05/07/24 07:10 05/07/24 08:54 05/07/24 09:00
I&O
05/06/24 05/07/24 05/08/24
06:59 06:59 06:59
Intake Total 1480 / 1480 1680 / 1680
Output Total 2200 / 2200 1025 / 1025
Balance -720 / -720 655 / 655
[2024-05-07] MEDS: BENADRYL 25 MG PO (11:24)
[2024-05-07 11:45] VITALS: BP 111/63
[2024-05-07] MEDS: COMPAZINE 10 MG IV (11:54)
[2024-05-07] MEDS: DILAUDID 1 MG IV (14:11)
--- NOTE | 2024-05-07 16:07 | CM ---
Patient seen at bedside. IMM explained & signed. Placed in chart.
Patient to go home on hospice tomorrow.
Transportation forms on chart - family requested 11:00 am transport. Outpatient DNR form signed & on chart.
DME to be delivered to son's home.
PLAN: HOME with Hospice
[2024-05-07] MEDS: DILAUDID 4 MG PO (19:30)
[2024-05-07 19:39] VITALS: BP 132/72
[2024-05-07] MEDS: SENOKOT 17.2 MG PO (19:58)
[2024-05-07] MEDS: COLACE 100 MG PO (19:59)
[2024-05-07] MEDS: XANAX 1 MG PO (21:49)
[2024-05-08] MEDS: DILAUDID 4 MG PO ×2 (04:50→10:08)
[2024-05-08 07:10] VITALS: BP 127/73
[2024-05-08] MEDS: DILAUDID 1 MG IV (07:27)
--- NOTE | 2024-05-08 08:14 | W.[place]-PDMP ---
[place]-PD[place]
-
Checked the [place]- Prescription Drug Monitoring Program website, no red flags identified; safe to proceed with prescription.
--- NOTE | 2024-05-08 08:14 | W.PN.HOSP.TC ---
Addendum entered and electronically signed by Rober Palmer MD 05/08/24 13:18:
Acute duodenitis without bleeding
Original Note:
Today's Communication/Plan
-
home hospice
Assessment / Plan
Assessment / Plan
General: Obese; Negative Pain
HEENT: Normocephalic and Atraumatic; Negative Oxygen
Respiratory: Clear to Auscultation
GI: Soft, Nontender, Nondistended and Normal Bowel Sounds
Neuro: Awake, Alert, Oriented and No Motor Deficits
MSK-RUE swelling
Psych: Calm
#Abdominal pain likely secondary to duodenitis vs. enteritis vs. cannabinoid hyperemesis vs pancreatitis in the setting of mild alcohol usage with history of pancreatic transplant
#History of pancreatitis in the past
#Nausea and vomiting secondary to above
#Leukocytosis likely reactive Resolved
#Mild hypercalcemia likely secondary dehydration-improved
Pain control, as needed Tylenol, Dilaudid increased to 2 mg every 3 hours as needed, still getting Dilaudid every 3 hours
MRI abdomen Severe diffuse atrophy of the [place] pancreas. Slightly distended main pancreatic duct and very subtle edema anterior and superior to the pancreatic head and proximal body. Findings suspicious for mild pancreatitis. Intrahepatic and
extrahepatic bile duct dilatation. No persistent or reproducible intraluminal filling defects are identified to indicate choledocholithiasis.
GI and nephrology input appreciated
Antinausea meds as needed
PPI
Tolerates diet and p.o. intake.
Poor vascular access: Had a central venous catheter placed in right femoral area by IR on Saturday
Has decided to transition to hospice and decided to stop taking all immunosuppressive medication. Patient has decided to go on hospice and refused all further management and treatment plan.
#Constipation: Likely multifactorial including decreased mobility and pain medication
Continue with senna Colace. Dulcolax started. miralax.
Had multiple bm 05/05
#Renal transplant/Pancreatic transplant
#Acute kidney injury likely secondary to decreased p.o. intake
Continue Prograf and mycophenolate. Prednisone held and started on hydrocortisone 50 every 8, patient has been compliant with taking p.o. meds.
Tacrolimus level is pending as recollected again today,. Collected on 04/27 while hydrocortisone 50 mg IV every 12 hours, per nephrology continue the same dose until we get the tacrolimus level, which is sent out... Look like the sample of 819.
Nephrology level was 17.5 and nephrology think this is not accurate therefore repeated today
Dose Prograf increased 1mg p.o. every 12
Patient and spouse declining transfer to tertiary center including [place]
Creat was 1.6 on 04/27 then 1.5 yesterday, today 1.3
Appreciate nephro input, discussed with nephrology in detail regular
benaydrl prn-?uremia pruritis
# Superficial right basilic vein thrombosis nonobstructive
-Elevate right upper extremity.. Ice pack.
#Mild acute duodenitis
#Pneumobilia-defer to GI.
PPI
GI on board
#Transaminitis likely secondary to pancreatitis/medications versus dehydration
Trend CMP for now
Resolved
#Primary hypertension likely elevated due to pain
Pressure has been elevated, likely secondary to pain,
Continue to monitor
PRN IV meds.
Increase hydralazine to 75 mg 3 times daily and Lopressor 25 twice daily,
# Intermittent urinary retention secondary to decreased mobility
Encourage patient to get out of bed and use commode
Like to avoid placing Jansen catheter
Improved
#Chronic thrombocytopenia
Chronically low and stable
Hypothyroidism
Cont synthroid
Anxiety/depression
Continue with Xanax
History of chronic inflammatory demyelinating polyneuropathy
Holding gabapentin and tizanidine for now
History of type 2 diabetes
History of cholecystitis status postcholecystectomy
History of partial hysterectomy
Marijuana user-smokes/vapes daily and takes edible once a while
Hx of RUE DVT -off Eliquis
DVT ppx-lovenox
DNR/DNI confirmed with spouse per pt.
Discussed with patient and patient's spouse at bedside on 05/04/24. patient has agreed to move and transition to home hospice. Spouse now agrees with patient's decision. Family is deciding which mom to go to as spouse is unable to take care of
patient at home. They understand the poor prognosis and stopping all immunosuppressive medications. Patient is awake alert and oriented and able to make her own decision. Will adjust pain medication as requested. Discussed with palliative care
with Dr. Victoria Cristina.
Case management for dispo. Medically stable. DC once home arrangements completed.
DC son house on Home hopsice
More than 30 minutes spent in discharge including
Final examination of the patient
Summarizing hospital stay
Instructions for continuing care to all relevant caregivers
Preparation of discharge records, prescriptions, and referral forms
Total time spent (in minutes): 54
Anticipated Discharge: Today
Subjective/Interval History
-
Date of Service: May 08, 2024
some abd discomfort
Objective Data
-
Vital Signs:
Vital Signs
Temp Pulse Resp BP Pulse Ox
98.7 F 98 16 127/73 95
05/08/24 07:10 05/08/24 07:10 05/08/24 07:10 05/08/24 07:10 05/08/24 07:10
I&O
05/07/24 05/08/24 05/09/24
06:59 06:59 06:59
Intake Total 1680 / 1680 1380 / 1380
Output Total 1025 / 1025 1050 / 1050
Balance 655 / 655 330 / 330
[2024-05-08] MEDS: AUGMENTIN 500 MG/125 MG PO (08:28)
[2024-05-08] MEDS: COLACE PO (08:29)
--- NOTE | 2024-05-08 09:40 | HOSPNOTE ---
Patient is scheduled to be discharged at 11am. Once patient is home she will be signed onto hospice services. A local fill of medications will be picked up by spouse. All equipment has arrived. OOH DNR needed on chart. Case management and Attending
aware of plan.
--- NOTE | 2024-05-08 10:35 | W.DCSUMMARY ---
Discharge Summary
Discharge Data
Date of Admission: 04/21/24
Date of Discharge: 05/08/24
-
Pending Results: No
Hospital Course
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
hypothyroidism, anxiety, depression, CIDP, daily marijuana usage is presenting from home with complaint of severe abdominal pain. Patient underwent CAT scan with concern for duodenitis. Patient also underwent MRI which showed Severe diffuse
atrophy of the [place] pancreas. Slightly distended main pancreatic duct and very subtle edema anterior and superior to the pancreatic head and proximal body. Findings suspicious for mild pancreatitis. Intrahepatic and extrahepatic bile duct
dilatation. No persistent or reproducible intraluminal filling defects are identified to indicate choledocholithiasis. Patient was on IV fluid resuscitation. Patient was unable to tolerate p.o. intervention for significant amount of time. Patient
with history of dual transplant and was highly recommended to follow-up with the transplant center. Multiple times it was stated by myself, nephrology for transfer to a higher level of care at a transplant center as patient is on multiple
immunosuppressant medication and is a significant risk of rejection if meds were not properly dosed on unable to take p.o. due to significant abdominal pain. Dobbhoff tube with tube feeding was offered but patient refused. Patient and spouse both
refused to be transferred for closer monitoring of transplant medication and immunosuppressive state and wanted to continue medical care here at They did understand that certain blood work Prograf level takes days to come back and they
understood the risk of rejection. Patient levels were found to be low and Prograf was increased to 1 mg every 12. Patient creatinine continue to trend up to some extent. IV fluids were adjusted by nephrology eventually and mild improvement in
creatinine. Patient reports persistent abdominal pain GI was following along. Patient continues to refuse to increase her p.o. intake and intermittent required IV fluids. Patient finally stated that she would like to stop taking her
immunosuppressive medication would like to consider hospice. Patient was also complaining of dysuria and received some augmentin during hospitalization. Constipation resolved with bowel regimen. Patient was also found with superficial right
basilic vein thrombosis. Patient finally stated that she does not want to pursue any further aggressive medical care/management even though it was offered and that she would like to be transition to hospice. Patient spouse agreed and wanted to
respect patient decision to move forward with hospice. Multiple family numbers were also noted during hospitalization and they all agreed with patient wishes of hospice. Patient was eval by hospice team. Patient pain medication was adjusted
as per her comfort level. Immunosuppressant medications were discontinued, as per her choice and patient will be transition to home hospice.
Discharge Plan
-
Patient Disposition: Home with Hospice
Discharge Diagnosis/Procedures: Abdominal pain likely multifactorial secondary to duodenitis versus enteritis versus cannabinoid hyperemesis versus pancreatitis in the setting of alcohol usage with history of pancreatic transplant
History of pancreatic and renal transplant
Leukocytosis
Mild hypercalcemia
Nausea vomiting
Constipation
Acute kidney injury
Superficial right basilic vein thrombosis
Transaminitis
Primary hypertension uncontrolled
Urinary retention
Condition: Critical
Diet: As tolerated
Activity: With assistance and As tolerated
Driving Restrictions: No driving
Referrals:
Tunde Vail MD [Non-Admitting Privileges] - (follow up with recurrent admission with abdominal pain and hx pancreatic transplant )
Maine Villa NP [Family Provider] -
Prescriptions:
New
fentanyl 50 mcg/hr Patch 72 Hour
1 patch transdermal Q72H Qty: 1 0RF
hydromorphone 2 mg Tablet
2 mg PO Q3HPRN PRN (Reason: Severe pain) Qty: 20 0RF
Continued
alprazolam 0.5 mg tablet
1 mg PO HS
ondansetron 4 mg Tablet,Disintegrating
4 mg PO Q6HPRN PRN (Reason: nausea)
Discontinued
prednisone 5 mg tablet
5 mg PO DAILY
diphenoxylate-atropine [Lomotil] 2.5-0.025 mg Tablet
1 tab PO QIDPRN PRN (Reason: diarrhea)
mycophenolate mofetil [CellCept] 500 mg tablet
500 mg PO Q12
levothyroxine 50 mcg tablet
50 mcg PO DAILY
pantoprazole 40 mg tablet,delayed release (DR/EC)
40 mg PO DAILY
biotin 1 mg Capsule
1 mg PO DAILY
gabapentin 600 mg Tablet
600 mg PO TID
tizanidine 4 mg Tablet
4 mg PO TIDPRN PRN (Reason: spasms)
Theragen Tablet
1 tab PO DAILY
cholecalciferol (vitamin D3) [Vitamin D3] 125 mcg (5,000 unit) Tablet
125 mcg PO DAILY
Medical Marijuana
2 puff inhalation DAILYPRN PRN (Reason: mild pain)
tacrolimus 0.5 mg capsule
0.5 mg PO Q12
Discharge Orders:
Discharge Patient (As Directed); Ordered 05/08/24
Ordered By: Rober Palmer
Discharge Date and Time
Discharge Date/Time: 05/08/24 11:46
Print Language: TURKMEN
--- NOTE | 2024-05-08 11:32 | W.PN.PAL2 ---
Today's Communication
-
Patient was seen at bedside with hospice liason as family was refusing discharge due to right wrist pain. they were concerned about a clot. explained that for a superficial blood clot, the standard treatment is typically rest, elevation, and pain
medication, which can all be done at home with hospice, whereas if we delay discharge today, we may not be able to start home hospice over the weekend due to staffing. Patient would prefer to go home rather than further work up, and will proceede
with discharge. Hospice team have already set up all equipment and medication orders.
Assessment / Plan
-
Assessment/Plan:
Based on the current condition, prognosis, comorbidities, patient's goals & wishes as discussed above, the palliative care team has made the following recommendations:
Focus & Plan of Care:
Hospice Care:
Palliative Care:
Advanced Care Directives, Resuscitation & Out of Hospital Medical Orders:
Pain & Symptom Management:
Discharge Planning Needs:
Other:
The above recommendations were discussed with the patient/family and medical team.
Objective Data
-
Objective Data:
Vital Signs
Temp Pulse Resp BP Pulse Ox
98.7 F 98 16 127/73 95
05/08/24 07:10 05/08/24 07:10 05/08/24 07:10 05/08/24 07:10 05/08/24 08:00
Laboratory Results
04/24/24 07:09
05/02/24 04:55
Total Protein 4.9 g/dl (6.3-8.2) L 04/30/24 04:39
Albumin 2.7 g/dl (3.5-5.0) L 04/30/24 04:39
Urine Color Yellow 04/24/24 14:19
Urine Clarity Slightly cloudy (Clear) 04/24/24 14:19
Urine pH 6.0 (5.0-9.0) 04/24/24 14:19
Ur Specific [place] 1.020 (<1.030) 04/24/24 14:19
Urine Ketones 2+ (Negative) A 04/24/24 14:19
Urine Bilirubin 1+ (Negative) A 04/24/24 14:19
Palliative Performance Scale
Palliative Performance Scale:
PPS Level Ambulation Activity & Evidence of Disease Self Care Intake Conscious Level
100% Full Normal Activity & Work; Full Intake Full
No Evidence of Disease
90% Full Normal Activity & Work; Full Normal Full
Some Evidence of Disease
80% Full Normal Activity with Effort Full Normal or Full
Some Evidence of Disease Reduced
70% Reduced Unable Normal Job/Work Full Normal or Full
Significant Disease Reduced
60% Reduced Unable Hobby/Housework Occasional Normal or Full or Confusion
Significant Disease Assistance Reduced
50% Mainly Sit/Lie Unable to do Any Work Considerable Normal or Full or Confusion
Extensive Disease Assistance Req'd Reduced
40% Mainly in Bed Unable to do Most Activity Mainly Assistance Normal or Full or Drowsy;
Extensive Disease Reduced +/- Confusion
30% Totally Bed Unable to do Any Activity Total Care Normal or Full or Drowsy;
Bound Extensive Disease Reduced +/- Confusion
20% Totally Bed Bound Unable to do Any Activity Total Care Minimal to Full or Drowsy;
Extensive Disease Sips +/- Confusion
10% Totally Bed Bound Unable to do Any Activity Total Care Mouth Care Drowsy or Coma;
Extensive Disease Only +/- Confusion
0%
PPS Score Level:
Palliative Performance Scale:
PPS Level Ambulation Activity & Evidence of Disease Self Care Intake Conscious Level
100% Full Normal Activity & Work; Full Intake Full
No Evidence of Disease
90% Full Normal Activity & Work; Full Normal Full
Some Evidence of Disease
80% Full Normal Activity with Effort Full Normal or Full
Some Evidence of Disease Reduced
70% Reduced Unable Normal Job/Work Full Normal or Full
Significant Disease Reduced
60% Reduced Unable Hobby/Housework Occasional Normal or Full or Confusion
Significant Disease Assistance Reduced
50% Mainly Sit/Lie Unable to do Any Work Considerable Normal or Full or Confusion
Extensive Disease Assistance Req'd Reduced
40% Mainly in Bed Unable to do Most Activity Mainly Assistance Normal or Full or Drowsy;
Extensive Disease Reduced +/- Confusion
30% Totally Bed Unable to do Any Activity Total Care Normal or Full or Drowsy;
Bound Extensive Disease Reduced +/- Confusion
20% Totally Bed Bound Unable to do Any Activity Total Care Minimal to Full or Drowsy;
Extensive Disease Sips +/- Confusion
10% Totally Bed Bound Unable to do Any Activity Total Care Mouth Care Drowsy or Coma;
Extensive Disease Only +/- Confusion
0%
PPS Score Level:
--- NOTE | 2024-05-08 13:27 | CM ---
Patient to return to son's home today with [facility].
Ambulance transportatiion set up.
DME to be delivered to son's home.
PLAN: Discharge to home with [facility].
Ambulance to transport.
== END 2024-05-08 11:46 | disposition hospice, home (50) | DRG 438 ==
LOC: 2 NORTH 09:16
PROVIDERS: Specialist; ADMITTING PHYSICIAN Hospitalist; CONSULT PHYSICIAN Internal Medicine Hospice and Palliative Medicine; EMERGENCY PHYSICIAN Emergency Medicine; FAMILY PHYSICIAN Nurse Practitioner Family; OTHER PHYSICIAN Internal Medicine; OTHER PHYSICIAN Internal Medicine Gastroenterology
DX: T86.898 Other complications of other transplanted tissue (principal); K85.80 Other acute pancreatitis without necrosis or infection; D84.821 Immunodeficiency due to drugs; G61.81 Chronic inflammatory demyelinating polyneuritis; I82.611 Acute embolism and thrombosis of superficial veins of right upper extremity; N17.8 Other acute kidney failure; T86.19 Other complication of kidney transplant; Z66 Do not resuscitate; Z51.5 Encounter for palliative care; K21.9 Gastro-esophageal reflux disease without esophagitis; I12.9 Hypertensive chronic kidney disease with stage 1 through stage 4 chronic kidney disease, or unspecified chronic kidney disease; N18.31 Chronic kidney disease, stage 3a; E03.9 Hypothyroidism, unspecified; E11.22 Type 2 diabetes mellitus with diabetic chronic kidney disease; E86.0 Dehydration; E83.52 Hypercalcemia; R74.01 Elevation of levels of liver transaminase levels; F32.A Depression, unspecified; F41.9 Anxiety disorder, unspecified; D69.6 Thrombocytopenia, unspecified; R33.9 Retention of urine, unspecified; K86.89 Other specified diseases of pancreas; K29.80 Duodenitis without bleeding; K59.00 Constipation, unspecified; Z91.199 Patient's noncompliance with other medical treatment and regimen due to unspecified reason; Z88.1 Allergy status to other antibiotic agents; Z86.718 Personal history of other venous thrombosis and embolism; Z86.16 Personal history of COVID-19; Z79.899 Other long term (current) drug therapy; Z87.891 Personal history of nicotine dependence; Z79.01 Long term (current) use of anticoagulants; Z79.890 Hormone replacement therapy; Z79.624 Long term (current) use of inhibitors of nucleotide synthesis; Z79.52 Long term (current) use of systemic steroids; Z79.621 Long term (current) use of calcineurin inhibitor; Y83.0 Surgical operation with transplant of whole organ as the cause of abnormal reaction of the patient, or of later complication, without mention of misadventure at the time of the procedure
CPT/HCPCS: 36556; 74019; 74176; 74183; 76937; 77001; 80048; 80053; 80076; 80197; 81003; 81015; 83690; 83735; 83880; 84100; 85025; 86850; 86900; 86901; 87045; 87046; 87086; 87324; 87427; 87449; 87811; 93005; 93971; 96361; 96374; 96375; 97162; 97530; 99285; A9575